=== PATIENT | male | born 1935 | race Caucasian/White ===

== ENCOUNTER → 2016-06-07 | Outpatient (CLI) | payer BC ==
[~2016-06-07] MED LIST: ASPEC81 PO; CMD5 PO; LISI5TAB3 PO; METO25TA3 PO; NTRGSL/4 UT; PRED1SUS3 OPR; ROSU40TA PO; WARF5TAB90 PO
== END | disposition home or self-care (01) ==
LOC: C.LAB1850 08:01
PROVIDERS: ATTEND Internal Medicine Cardiovascular Disease
DX: R52 Pain, unspecified (principal)

== ENCOUNTER → 2016-07-19 | Outpatient (CLI) | payer BC | END | disposition home or self-care (01) | LOC: C.LAB1850 10:59 | PROVIDERS: ATTEND Internal Medicine Cardiovascular Disease | DX: E03.9 Hypothyroidism, unspecified (principal) ==

== ENCOUNTER → 2016-10-19 | Outpatient (CLI) | payer BC ==
[2016-10-19 09:31] LABS: HEMATOCRIT 41.6 % (42-52); MEAN CELL VOLUME 92.7 fL (80-100); MEAN CORPUSCULAR HEMOGLOBIN 30.7 pg (25-34); MEAN CORPUSCULAR HGB CONC 33.2 g/dl (32-36); MEAN PLATELET VOLUME 10.6 fL (7.4-10.4); PLATELET COUNT 168 K/uL (130-400); RED BLOOD COUNT 4.49 M/uL (4.7-6.1); WHITE BLOOD COUNT 5.71 K/uL (4.8-10.8)
[2016-10-19 09:43] LABS: ALT/SGPT 35 U/L (12-78); BLOOD UREA NITROGEN 22 mg/dl (7-18); BUN/CREATININE RATIO 18.3 (10-20); CARBON DIOXIDE 25 mmol/L (21-32); CHLORIDE 110 mmol/L (98-107); CHOLESTEROL 133 mg/dl (0-200); GLUCOSE 94 mg/dl (70-99); POTASSIUM 4.5 mmol/L (3.5-5.1); SODIUM 146 mmol/L (136-145); TRIGLYCERIDES 78 mg/dl (0-150); VERY LOW DENSITY LIPOPROT CALC 16 mg/dl
[2016-10-19 09:54] LABS: ALKALINE PHOSPHATASE 73 U/L (45-117); AST/SGOT 28 U/L (15-37); CHOLESTEROL/HDL RATIO 2.6; HDL CHOLESTEROL 52 mg/dl; LDL CHOLESTEROL CALCULATED 65 mg/dl
== END | disposition home or self-care (01) ==
LOC: C.LAB1850 07:36
PROVIDERS: ATTEND Internal Medicine Cardiovascular Disease
DX: E78.5 Hyperlipidemia, unspecified (principal)

== ENCOUNTER → 2016-11-10 | Outpatient (CLI) | payer BC | END | disposition home or self-care (01) | LOC: C.LAB1850 07:50 | PROVIDERS: ATTEND Internal Medicine Cardiovascular Disease | DX: E03.9 Hypothyroidism, unspecified (principal) ==

== ENCOUNTER → 2016-12-01 | Outpatient (CLI) | payer BC | END | disposition home or self-care (01) | LOC: C.LAB1850 07:25 | PROVIDERS: ATTEND Internal Medicine Cardiovascular Disease | DX: E03.9 Hypothyroidism, unspecified (principal) ==

== ENCOUNTER → 2017-03-25 | Outpatient (CLI) | payer BC ==
[2017-03-25 09:36] LABS: HEMATOCRIT 37.7 % (42-52); MEAN CELL VOLUME 93.8 fL (80-100); MEAN CORPUSCULAR HEMOGLOBIN 31.3 pg (25-34); MEAN CORPUSCULAR HGB CONC 33.4 g/dl (32-36); MEAN PLATELET VOLUME 10.5 fL (7.4-10.4); PLATELET COUNT 159 K/uL (130-400); RED BLOOD COUNT 4.02 M/uL (4.7-6.1)
[2017-03-25 10:04] LABS: ALT/SGPT 39 U/L (12-78); BLOOD UREA NITROGEN 23 mg/dl (7-18); BUN/CREATININE RATIO 21.2 (10-20); CALCIUM 8.7 mg/dl (8.5-10.1); CARBON DIOXIDE 24 mmol/L (21-32); CHLORIDE 108 mmol/L (98-107); CREATININE 1.09 mg/dl (0.60-1.40); GLUCOSE 106 mg/dl (70-99); POTASSIUM 4.4 mmol/L (3.5-5.1); SODIUM 142 mmol/L (136-145)
[2017-03-25 10:14] LABS: ALB/GLOB RATIO 1.1 (0.9-2); ALKALINE PHOSPHATASE 75 U/L (45-117); AST/SGOT 28 U/L (15-37)
== END | disposition home or self-care (01) ==
LOC: C.LAB1850 08:38
PROVIDERS: ATTEND Internal Medicine Cardiovascular Disease
DX: E78.5 Hyperlipidemia, unspecified (principal)

== ENCOUNTER → 2017-06-14 | Outpatient (CLI) | payer BC ==
[2017-06-14 14:56] LABS: ALBUMIN 2.6 gm/dl (3.4-5.0); ALKALINE PHOSPHATASE 356 U/L (45-117); ALT/SGPT 87 U/L (12-78); AST/SGOT 47 U/L (15-37); BASO % 0.2 %; BASO ABS # 0.02 K/uL (0-0.2); BLOOD UREA NITROGEN 22 mg/dl (7-18); CALCIUM 8.6 mg/dl (8.5-10.1); CARBON DIOXIDE 26 mmol/L (21-32); CREATININE 1.11 mg/dl (0.60-1.40); EOS % 1.4 %; EOS ABS # 0.16 K/uL (0-0.5); GLUCOSE 87 mg/dl (70-99); HEMATOCRIT 29.8 % (42-52); HEMOGLOBIN 9.4 g/dL (14.0-18.0); IG# 0.19 K/uL (0.00-0.02); LYMPH % 19.3 %; LYMPH ABS # 2.22 K/uL (1.2-3.4); MEAN CELL VOLUME 94.6 fL (80-100); MEAN CORPUSCULAR HEMOGLOBIN 29.8 pg (25-34); MEAN CORPUSCULAR HGB CONC 31.5 g/dl (32-36); MEAN PLATELET VOLUME 9.1 fL (7.4-10.4); MONO % 8.8 %; MONO ABS # 1.01 K/uL (0.11-0.59); NEUT % 68.6 %; NEUT ABS # 7.91 K/uL (1.4-6.5); NUCLEATED RED BLOOD CELL ABS 0.04 K/uL (0-0); PLATELET COUNT 470 K/uL (130-400); POTASSIUM 4.5 mmol/L (3.5-5.1); RED CELL DISTRIBUTION WIDTH CV 18.2 % (11.5-14.5); RED CELL DISTRIBUTION WIDTH SD 58.6 fL (36.4-46.3); SODIUM 135 mmol/L (136-145); WHITE BLOOD COUNT 11.51 K/uL (4.8-10.8)
[2017-06-14 15:04] LABS: TOTAL PROTEIN 7.2 gm/dl (6.4-8.2); TRANSFERRIN 288 mg/dl (200-360)
== END | disposition home or self-care (01) ==
LOC: C.LAB1850 12:59
PROVIDERS: ATTEND Internal Medicine Cardiovascular Disease
DX: D64.9 Anemia, unspecified (principal); I25.10 Atherosclerotic heart disease of native coronary artery without angina pectoris; E03.9 Hypothyroidism, unspecified

== ENCOUNTER → 2017-06-29 | Outpatient (CLI) | payer BC ==
[~2017-06-29] MED LIST changes: +LEVO88TA PO
== END | disposition home or self-care (01) ==
LOC: C.LAB1850 13:01
PROVIDERS: ATTEND Internal Medicine Cardiovascular Disease
DX: E03.9 Hypothyroidism, unspecified (principal)

== ENCOUNTER → 2017-08-01 | Outpatient (CLI) | payer BC ==
[~2017-08-01] MED LIST changes: -CMD5 PO; -METO25TA3 PO; -PRED1SUS3 OPR
[2017-08-01 13:18] LABS: HEMOGLOBIN 9.2 g/dL (14.0-18.0); MEAN CELL VOLUME 81.3 fL (80-100); MEAN CORPUSCULAR HEMOGLOBIN 24.9 pg (25-34); MEAN CORPUSCULAR HGB CONC 30.7 g/dl (32-36); MEAN PLATELET VOLUME 9.4 fL (7.4-10.4); PLATELET COUNT 260 K/uL (130-400); RED CELL DISTRIBUTION WIDTH CV 16.4 % (11.5-14.5); WHITE BLOOD COUNT 6.37 K/uL (4.8-10.8)
[2017-08-01 13:54] LABS: ALBUMIN 3.3 gm/dl (3.4-5.0); ALT/SGPT 24 U/L (12-78); AST/SGOT 21 U/L (15-37); BLOOD UREA NITROGEN 22 mg/dl (7-18); CALCIUM 8.6 mg/dl (8.5-10.1); CARBON DIOXIDE 26 mmol/L (21-32); CREATININE 0.96 mg/dl (0.60-1.40); GLUCOSE 94 mg/dl (70-99); POTASSIUM 4.4 mmol/L (3.5-5.1); SODIUM 139 mmol/L (136-145)
[2017-08-01 13:58] LABS: ALKALINE PHOSPHATASE 130 U/L (45-117); TOTAL PROTEIN 7.4 gm/dl (6.4-8.2)
== END | disposition home or self-care (01) ==
LOC: C.LAB1850 11:42
PROVIDERS: ATTEND Internal Medicine Cardiovascular Disease
DX: I25.10 Atherosclerotic heart disease of native coronary artery without angina pectoris (principal); E78.5 Hyperlipidemia, unspecified; R79.89 Other specified abnormal findings of blood chemistry

== ENCOUNTER → 2017-08-31 | Outpatient (CLI) | payer BC ==
[2017-08-31 10:17] LABS: INR 2.1 (0.9-1.1)
== END | disposition home or self-care (01) ==
LOC: C.LAB1850 09:25
PROVIDERS: ATTEND Internal Medicine Cardiovascular Disease
DX: Z86.69 Personal history of other diseases of the nervous system and sense organs (principal)

== ENCOUNTER → 2017-09-28 | Outpatient (CLI) | payer BC ==
[2017-09-28 17:45] LABS: HEMATOCRIT 35.4 % (42-52); HEMOGLOBIN 11.1 g/dL (14.0-18.0); MEAN CELL VOLUME 82.3 fL (80-100); MEAN CORPUSCULAR HEMOGLOBIN 25.8 pg (25-34); MEAN CORPUSCULAR HGB CONC 31.4 g/dl (32-36); MEAN PLATELET VOLUME 9.7 fL (7.4-10.4); PLATELET COUNT 161 K/uL (130-400); RED CELL DISTRIBUTION WIDTH CV 20.9 % (11.5-14.5); RED CELL DISTRIBUTION WIDTH SD 62.9 fL (36.4-46.3); WHITE BLOOD COUNT 4.53 K/uL (4.8-10.8)
[2017-09-28 17:59] LABS: ALBUMIN 3.4 gm/dl (3.4-5.0); ALKALINE PHOSPHATASE 181 U/L (45-117); ALT/SGPT 35 U/L (12-78); AST/SGOT 31 U/L (15-37); BLOOD UREA NITROGEN 22 mg/dl (7-18); CALCIUM 8.5 mg/dl (8.5-10.1); CARBON DIOXIDE 23 mmol/L (21-32); CREATININE 1.13 mg/dl (0.60-1.40); GLUCOSE 97 mg/dl (70-99); POTASSIUM 4.5 mmol/L (3.5-5.1); SODIUM 141 mmol/L (136-145); TOTAL PROTEIN 7.1 gm/dl (6.4-8.2)
== END | disposition home or self-care (01) ==
LOC: C.LAB1850 15:50
PROVIDERS: ATTEND Internal Medicine Cardiovascular Disease
DX: D64.9 Anemia, unspecified (principal); R79.89 Other specified abnormal findings of blood chemistry

== ENCOUNTER 2018-06-02 06:51 | Observation (INO) ==
[2018-06-02] MEDS ORDERED: fentaNYL citrate 100 MCG/2 ML VIAL ONE (07:31)
[2018-06-02] MEDS ORDERED: MIDAZOLAM HCL 5 MG/ML 1 ML VIAL ONE (07:31)
[2018-06-02] MEDS ORDERED: BUPIVACAINE 0.25% 30 ML VIAL ONE (07:31)
[2018-06-02] MEDS ORDERED: LIDOCAINE HCL 1% 20 ML VIAL ONE (07:31)
[2018-06-02] MEDS ORDERED: BACITRACIN INJ 50,000 UNIT VIAL ONE (07:31)
--- NOTE | 2018-06-02 07:47 | History & Physical Bridge Note ---
Date of Service June 02, 2018 History & Physical Bridge Note I have examined the patient, reviewed the History & Physical and in the interval since the performance of the History & Physical I have noted the following changes of clinical significance: no changes noted
--- NOTE | 2018-06-02 07:48 | Pre Anesthesia Assessment ---
Date of Service June 02, 2018 Pre Sedation Assessment Vital Signs Temp Pulse Resp BP Pulse Ox 06/02/18 07:21 36.7 C 30 L 16 181/85 H 98 Cardiovascular + bradycardic Respiratory + respiratory effort normal Pre-Sedation Airway Assessment Smoking Status: Never smoker Hx Sleep Apnea: No Hx Difficult Intubation: No Short, Thick Neck: No Thyromental Distance: > or= 3.5 Finger Breadths Oral Cavity: + WNL Mallampati Class: III ASA: ASA3 NPO Status Date of Last Intake of Fluids: 06/01/18 Time of Last Intake of Fluids: 19:00 Date of Last Intake of Solid Food: 06/01/18 Time of Last Intake of Solid Foods: 19:00 Procedure Planning Contraindications for Sedation: none Current Medications Reviewed: Yes Notes The planned sedation has been discussed with the patient. Informed Consent was obtained. I have identified the patient, determined the appropriateness of sedation and have assessed the patient immediately prior to the procedure. All medicine(s) and interventions are by my order.
[2018-06-02] MEDS ORDERED: CEFAZOLIN 250 MG/ML 1 GM VIAL ONE (07:53)
[2018-06-02] MEDS ORDERED: OXYCODONE HCL IR 5 MG TAB (IMMEDIATE RELEASE) PO PRN (08:44)
--- NOTE | 2018-06-02 08:44 | Procedure Note ---
Procedure Note Date of Service June 02, 2018 Note Procedure performed: Implantation of single-chamber permanent pacemaker Staff gravity prospecting operator: Boubacar Hinkle MD Indication: The patient is an 82-year-old gentleman with a history of permanent atrial fibrillation and documented ventricular rates below 30 bpm. The patient also reports an element of exercise intolerance and dizziness. Based on this information is felt to be a good candidate for a permanent pacemaker due to symptomatic nonreversible AV node dysfunction. Procedure in detail: The patient was informed of the risks benefits and alternatives to the intended procedure and she wished to proceed. He was taken to the electrophysiology suite in a fasting state. A preoperative antibiotic had been administered. The patient was monitored electrocardiographically throughout today's procedure and conscious sedation was administered per protocol. The left upper pectoral area is prepped and draped in usual sterile fashion. This area was anesthetized using subcutaneous administration of a xylocaine solution. An incision was made at this site and carried down to the prepectoralis fascia using sharp dissection. Electrocautery was also employed for dissection as well as for hemostasis. A device pocket was fashioned tissues above the pectoralis muscle. Subsequent to this maneuver the left axillary vein was accessed using modified Seldinger technique. Sheath was placed over a guidewire and used to facilitate passage of the pacing lead to the right ventricle under fluoroscopic guidance. Adequate sensing and threshold parameters were obtained prior to Active fixation of the lead to the endocardial surface. The proximal portion of the lead then sutured the prepectoral fascia using nonabsorbable suture. The device pocket was irrigated with antibiotic solution. The lead was then attached to the device. The device and lead were then placed in the pocket and pocket was closed in 3 layers of absorbable suture. Steri-Strips and sterile dressing were applied. The device was tested noninvasively prior to conclusion the procedure. The patient tolerated procedure well there no immediate complications. Equipment used: New pulse generator: Paradi Tender [employer]. Model number: [id number] serial number [id number] Right ventricular lead: Paradi Tender [employer]. Model number: [id number] serial number [id number] Measured data: Right ventricular lead: R waves measured 11.6 mV. Pacing threshold 0.8 V at 0.4 ms with a pacing impedance of 741 ohms Impression: Successful implantation of single-chamber permanent pacemaker
[2018-06-02] MEDS: ASPIRIN 81 MG ECTAB PO SCH (10:14)
[2018-06-02] MEDS: ROSUVASTATIN CALCIUM 20 MG TAB PO SCH (10:14)
[2018-06-02] MEDS: LISINOPRIL 5 MG TAB PO SCH (10:15)
[2018-06-02] MEDS: LEVOTHYROXINE SODIUM 88 MCG TABLET PO SCH (12:26)
[2018-06-02 12:36] LABS: INR 1.7 (0.9-1.1); Prothrombin Time 16.8 Seconds (9.0-12.0)
[2018-06-02] MEDS: ACETAMINOPHEN 325 MG TAB PO PRN ×2 (13:49→20:58)
[2018-06-02] MEDS: CEFAZOLIN 1000MG 1,000 MG/7.5 ML SYR IV SCH ×2 (15:26→23:17)
[2018-06-02] MEDS ORDERED: WARFARIN SOD 2.5 MG TAB PO SCH (16:00)
[2018-06-03] MEDS: LEVOTHYROXINE SODIUM 88 MCG TABLET PO SCH (06:19)
[2018-06-03] MEDS: LISINOPRIL 5 MG TAB PO SCH (07:51)
[2018-06-03] MEDS: CEFAZOLIN 1000MG 1,000 MG/7.5 ML SYR IV SCH (07:51)
[2018-06-03] MEDS: ROSUVASTATIN CALCIUM 20 MG TAB PO SCH (07:51)
[2018-06-03] MEDS: ASPIRIN 81 MG ECTAB PO SCH (07:51)
[2018-06-03 08:13] LABS: INR 1.7 (0.9-1.1); Prothrombin Time 16.5 Seconds (9.0-12.0)
--- NOTE | 2018-06-03 08:32 | XRay Report ---
XR chest 2V routine HISTORY: 82 years-old Male EXACT TIME ORDERED Evaluate for pneumothorax and l status post placement of a left subclavian pacer. COMPARISON: Chest radiograph 05/26/2009 TECHNIQUE: PA and lateral views of the chest FINDINGS: Dual-lead left subclavian pacer is noted with lead overlying the expected location of the right ventr icle. Prior median sternotomy with cardiomegaly. No postprocedural pneumothorax identified. No pleura l effusion, focal airspace consolidation or overt pulmonary edema. Lungs are mildly hyperinflated. De generative changes of the shoulders and spine. IMPRESSION: Status post placement of a single lead left subclavian pacer. No postprocedural pneumotho rax. The above report was generated using voice recognition software. It may contain grammatical, syntax o r spelling errors. Electronically signed by: Emerson Loredo M.D. 06/03/2018 8:31 AM
--- NOTE | 2018-06-04 17:52 | Discharge Summary ---
Date of Service June 03, 2018 Admission HPI The patient is an 82-year-old gentleman with a history of permanent atrial fibrillation and symptomatic bradycardia. Based on the presence of symptoms an extremely low heart rates he was advised to consider implantation of a permanent pacemaker. Principal Diagnosis Principal Diagnosis Symptomatic bradycardia Discharge Exam An evaluation of the patient's wound on the day of discharge revealed some ecchymosis but no hematoma or drainage. Discharge Data Allergies Allergy/AdvReac Type Severity Reaction Status Date / Time No Known Allergies Allergy Mild NONE Verified 06/02/18 07:37 Procedures Performed Operation Date: 06/02/18 08:00 Actual Procedures p Pacer with Ventricular Lead - Indra Hinkle MD Ordered Studies 06/02/18 08:15 EP Lab Images for PACS ONCE Hospital Course (1) Symptomatic bradycardia: On the day of admission the patient underwent implantation of a single- chamber Med[employer]onic permanent pacemaker. There were no immediate complications. Following morning an x-ray demonstrated stable position of the lead without evidence of pneumothorax. A device interrogation revealed normal function of the lead and device. The wound evaluation revealed the absence of hematoma or complication. Total Time Total Time Spent Total Time Spent (In Minutes): 10 Discharge Plan Discharge Items Patient Disposition: Home - Self-Care Reason For Visit: [place] PACEMAKER Discharge Diagnosis: symptomatic bradycardia Discharge Goals: Therapeutic intervention Activity: Per 'Additional Instructions' section Activity Comment: No lifting left arm above shoulder or behind neck for 6 weeks Lifting: No more than 5 pounds Bathing: Keep incision dry Bathing Comment: Keep wound dry and steri-strip intact until f/u next week Exercise/Sports: Gradually increase as tolerated Driving/Machine Use: No limitations Non-emergency contact: [facility] Physicist Call non-emergency contact if: your pain is concerning for you, you have a fever , your wound has increased redness and your wound has increased drainage Follow-up/Referrals: Steven Danielson MD [Primary Care Provider] - Diet: Heart Healthy Addtl Provider Instructions: none Prescriptions: Continue Aspirin Enteric Coated (Ecotrin Or Generic *) 81 MG ENTERIC COATED TAB 81 mg PO QAM Qty: 0 RF: 0 Lisinopril (Zestril) 5 MG tablet 5 mg PO QAM Qty: 0 RF: 0 Nitroglycerin (Nitrostat) 0.4 MG tablet 0.4 mg UT PRN Qty: 0 RF: 0 ROSUVASTATIN CALCIUM (CRESTOR) 40 MG tablet 40 mg PO QAM Qty: 0 RF: 0 WARFARIN SODIUM (COUMADIN) 5 MG tablet See Label Instructions .ROUTE .COMPLEX Qty: 0 RF: 0 LEVOTHYROXINE SODIUM (SYNTHROID) 88 MCG tablet 1 tab PO DAILY 30 Days Qty: 30 RF: 5 Stand-Alone Forms: [facility]/Other Patient Handouts: Pacemaker Discharge Orders: Discharge Order (Routine); Ordered 06/03/18 Ordered By: Indra Hinkle Admission Data Admit Date/Time: 06/02/18 08:09 Attending Provider: Indra Hinkle Admit Provider: Indra Hinkle Primary Care Provider: Steven Danielson Service: Telemetry Other Interventions: Discharge Summary Assessment (RN) Last Done: 06/03/18 10:20 DC Date/Time DO NOT enter until pt leaves facility: 06/03/18 10:50
== END 2018-06-03 10:50 | disposition home or self-care (01) ==
LOC: EP 06:51 → 2S 08:09 → INTOOBSV 08:09

== ENCOUNTER 2020-11-29 07:28 | Inpatient (IN) ==
[2020-11-29] MEDS ORDERED: SODIUM CHLORIDE 0.9% 500 ML IV STA (07:54)
[2020-11-29] MEDS ORDERED: cefTRIAXone SODIUM 1,000 MG/50 ML BAG IV STA (07:54)
--- NOTE | 2020-11-29 08:11 | Emergency Department Note ---
Impression & Plan Sepsis, Cellulitis of leg, right, Abnormal EKG ED Provider Note NAME: SOPHIA HAY AGE: 85 SEX: M : 1935 ARRIVES VIA: Walk-In INFORMANT: Patient, ED PROVIDER(S): Frederick Callejas DO CHIEF COMPLAINT: Cellulitis HPI: The patient is an 85-year-old male who presented to the emergency department for an evaluation of right leg swelling and pain. The patient injured his right lower leg with a shovel 2 days ago. He does take Coumadin and noticed right away that he was having ecchymosis and some bleeding from the area. It was only a skin avulsion and was not very deep so initially the patient only cleaned out at home and covered it with Band-Aids. The patient started noticing over the last 24 hours that he was having more swelling ecchymosis and redness. He then started noting chills and subjective fever over the last 24 hours. He does have a history of irregular heartbeat and takes Coumadin. He has been taking Motrin for the fever and the pain. He denies having any chest pain. He denies having any nausea or vomiting. He denies having any abdominal pain. He does note swelling in the right ankle more than the left. The patient has not been seen by his provider for the symptoms. He presented to the emergency department because of concerns for infection. The patient states the pain does worsen when he tries to ambulate. It is somewhat improved with keeping the leg elevated. ROS: See above HPI for pertinent positives & negatives. A total of 10 systems reviewed and were otherwise negative. PAST MEDICAL HISTORY: See Below PAST SURGICAL HISTORY: See Below FAMILY HISTORY: See Below SOCIAL HISTORY: See Below HOME MEDICATIONS: See Below ALLERGIES: See Below VITALS: See Below PHYSICAL EXAMINATION: GENERAL: The patient is awake and alert. He is nonanxious appearing. EYES: The conjunctivae are clear. The pupils are round and reactive. EARS, NOSE, MOUTH AND THROAT: The nose is without any evidence of any deformity. NECK: The neck is nontender and supple. RESPIRATORY: Diminished breath sounds are noted at both bases. There is no tachypnea or conversational dyspnea. CARDIOVASCULAR: Regular rate and rhythm noted there no murmurs rubs or gallops normal S1 normal S2. GASTROINTESTINAL: The abdomen is soft. Abdomen is nontender. PELVIS: The Pelvis is stable. No tenderness to palpation is noted. BACK: No midline tenderness or or step-off noted range of motion in flexion extension as well as rotation no signs of muscle spasm noted MUSCULOSKELETAL/EXTREMITIES: There is no evidence of gross deformity full range of motion is noted in the hips and shoulders. SKIN: There is a small laceration in the posterior right leg. There is no active bleeding. There is significant ecchymosis and erythema in the posterior right leg. Pulses are symmetric in both feet. NEUROLOGIC: Patient is awake alert and oriented x3. MEDICAL DECISION MAKING: The patient is an 85-year-old male who presented to the emergency department for an evaluation of right leg pain. The patient had a slight injury to his right leg 2 days ago. He started noticing worsening pain and swelling over the last 24 hours. The patient did describe subjective fever and was diaphoretic. He was bradycardic and had a very abnormal EKG. I was unsure if the patient's initial hypotension was secondary to sepsis or secondary to cardiac source. The patient had multiple laboratory and radiographic studies in the emergency department. He did respond well to IV fluids and IV antibiotics but did require a central line for IV pressors. I discussed the patient's laboratory and radiographic studies with him. CT the head was obtained because I was unsure if the patient's EKG changes were secondary to cerebral T wave abnormalities. CT of the chest was obtained to ensure this was not venous pulmonary thromboembolic disease. CT the abdomen and pelvis showed an enlarged gallbladder but the patient at this time only has an elevated bilirubin and no signs of chol ecystitis on physical exam or by other laboratory studies. CT of the leg did show signs of cellulitis but no signs of gas-forming organisms such as necrotizing fasciitis. I discussed the patient's condition with him. He was feeling much better. The [facility] hospitalist was notified about the patient. Care was taken not to over fluid resuscitate the patient due to his underlying cardiac condition. Triage Nursing notes reviewed. Prior medical records reviewed Vital Signs: reviewed and remarkable for hypotension and bradycardia. Differential diagnosis: Cellulitis, abscess, MRSA infection, DVT, necrotizing fasciitis, dermatitis, drug eruption, allergic reaction, as well as other pathologies. ER treatment provided: See below Diagnostics in ED interpreted by me: ECG: EKG was obtained in the emergency department. My interpretation is atrial fibrillation at 54 bpm. There was no PVCs noted. Significant inferior and low lateral ST depressions with T wave versions were noted. This was compared to a tracing from May [id number]. Significant changes have occurred since previous tracing. Cardiac Monitoring: An order was placed for continuous cardiac monitoring. The monitor shows a rate of 50 bpm with atrial fibrillation rhythm. Laboratory studies: As stated above and show below. Imaging studies: See below Consultation(s): Dr. Conte was notified about the patient in the emergency department. ED COURSE: Procedures: Femoral Central Venous Catheter Indication: Sepsis Catheter Type: Triple-lumen Location: Left femoral vein Verbal consent was obtained after the risks and benefits were explained, including but not limited to intra-abdominal injury, vessel injury, bleeding, scarring, infection, pain, and bone/joint/nerve damage. At this time, the risks of the procedure are less than the risks of NOT performing the procedure. A time out was taken and the correct patient and site identified. The patient was placed in the supine position and the skin was prepped in the standard fashion with chlorhexidine and full sterile drapes applied. The proper landmarks were identified with ultrasound, anesthetized with 1% lidocaine without epinephrine, and the needle was inserted through the skin in the standard fashion. The needle was carefully advanced into blood vessel lumen with ultrasound guidance. The guidewire was placed uneventfully. The vessel is dilated and the catheter was p laced. It was sutured into position. There was good blood return from all ports. The patient tolerated the procedure well and there were no complications. PDMP:reviewed and no issues Critical Care: I have personally spent greater than 45 minutes of critical care time in the direct management of this patient. This includes bedside care, interpretation of diagnostic studies, and testing, discussion with consultants, patient, and family members, and other required patient management activities. This 45 minutes is in excess of all separately billable procedures. Past Med/Surg History Medical History Aneurysm of infrarenal abdominal aorta Aortic regurgitation Atrial fibrillation Bradycardia Coronary artery disease PCI to RCA with stent in 2009 Dyslipidemia H/O amaurosis fugax Hypertension Hypothyroidism (acquired) Mitral regurgitation Pacemaker Implantation of single-chamber Medtronic pacemaker 06/02/2018 Symptomatic bradycardia Thoracic aortic dissection Repair May 2017 Surgical History History of cataract surgery History of inguinal hernia repair, bilateral S/P thoracic aortic aneurysm repair Status post coronary artery stent placement right proximal Status post Mohs surgery face Family History Mother Coronary heart disease Social History Smoking Status: Never smoker Hx Alcohol Use: Yes Alcohol type: wine Hx Substance Use: No Preferred Language: Ukrainian Communication Ability: Effective Automatic Lathe Operator Required: No Beliefs That Will Affect Care: None Current Living Situation: Spouse Other Information That Helps Us Care for You: No Feels Safe at Home: Yes Safety Concerns: Feels Safe At This Time Assistive Devices: Cane, Glasses and Hearing Aid - Right Allergies Allergies Allergy/AdvReac Type Severity Reaction Status Date / Time No Known Allergies Allergy Mild NONE Verified 07/18/20 11:10 Home Meds Home Medications Medication Instructions Recorded Confirmed aspirin 81 mg tablet 81 mg PO DAILY #90 tab 12/12/18 11/29/20 nitroglycerin 0.4 mg sublingual 0.4 mg SL Q5M PRN #25 tab 12/12/18 11/29/20 tablet Previous Rx's Medication Instructions Recorded levothyroxine 88 mcg tablet 88 mcg PO DAILY #90 tab 02/05/20 rosuvastatin 40 mg tablet 40 mg PO DAILY #90 tab 03/19/20 warfarin 5 mg tablet 5 mg PO DAILY #90 tab 05/14/20 lisinopril 5 mg tablet 5 mg PO DAILY #90 tab 06/12/20 diclofenac sodium 50 mg 50 mg PO DAILY #90 tab 11/25/20 tablet,delayed release Results & Data (ED) Vital Signs Vital Signs - 24 hr 11/29/20 07:34 11/29/20 08:40 11/29/20 08:50 Temperature 36.6 C Temperature Source Temporal Artery Scan Pulse Rate 97 H 54 L 57 L Pulse Rate [Apical] Pulse Rate from SpO2 Sensor Pulse Rhythm [Apical] Respiratory Rate 18 22 18 Respiratory Effort / Characteristics Non-Labored Respiratory Depth Normal Respiratory Pattern Regular Blood Pressure 86/57 L Blood Pressure [Right Arm] Blood Pressure Mean 66 Blood Pressure Mean [Right Arm] Blood Pressure Position Sitting Blood Pressure Position [Right Arm] Pulse Oximetry 99 Oxygen Delivery Method Room Air Sepsis Recent Fever Within 48 Hours Yes Sepsis New/Unexplained Change in Mental Status No Sepsis Action Taken by Nursing No Action Required 11/29/20 09:00 11/29/20 09:10 11/29/20 09:30 Temperature 37 C Temperature Source Oral Pulse Rate 54 L 54 L Pulse Rate [Apical] 56 L Pulse Rate from SpO2 Sensor Pulse Rhythm [Apical] Respiratory Rate 20 16 16 Respiratory Effort / Characteristics Non-Labored Respiratory Depth Normal Respiratory Pattern Blood Pressure 81/48 L Blood Pressure [Right Arm] 81/50 L Blood Pressure Mean 59 Blood Pressure Mean [Right Arm] 60 Blood Pressure Position Blood Pressure Position [Right Arm] Pulse Oximetry 96 Oxygen Delivery Method Room Air Sepsis Recent Fever Within 48 Hours Sepsis New/Unexplained Change in Mental Status Sepsis Action Taken by Nursing 11/29/20 10:01 11/29/20 10:13 11/29/20 10:15 Temperature Temperature Source Pulse Rate 52 L 62 Pulse Rate [Apical] 50 L Pulse Rate from SpO2 Sensor Pulse Rhythm [Apical] Respiratory Rate 22 16 22 Respiratory Effort / Characteristics Respiratory Depth Respiratory Pattern Blood Pressure 70/42 L 69/42 L Blood Pressure [Right Arm] 69/44 L Blood Pressure Mean 51 51 Blood Pressure Mean [Right Arm] 52 Blood Pressure Position Blood Pressure Position [Right Arm] Pulse Oximetry 97 Oxygen Delivery Method Sepsis Recent Fever Within 48 Hours Sepsis New/Unexplained Change in Mental Status Sepsis Action Taken by Nursing 11/29/20 10:30 11/29/20 10:34 11/29/20 10:46 Temperature Temperature Source Pulse Rate 55 L 52 L Pulse Rate [Apical] 51 L Pulse Rate from SpO2 Sensor 56 L 52 L Pulse Rhythm [Apical] Respiratory Rate 21 16 19 Respiratory Effort / Characteristics Respiratory Depth Respiratory Pattern Blood Pressure 89/55 L Blood Pressure [Right Arm] 89/55 L Blood Pressure Mean 66 Blood Pressure Mean [Right Arm] 66 Blood Pressure Position Blood Pressure Position [Right Arm] Pulse Oximetry 100 100 99 Oxygen Delivery Method Room Air Sepsis Recent Fever Within 48 Hours Sepsis New/Unexplained Change in Mental Status Sepsis Action Taken by Nursing 11/29/20 10:50 11/29/20 11:00 11/29/20 11:07 Temperature Temperature Source Pulse Rate 54 L 50 L Pulse Rate [Apical] 50 L Pulse Rate from SpO2 Sensor 54 L Pulse Rhythm [Apical] Respiratory Rate 23 18 16 Respiratory Effort / Characteristics Respiratory Depth Respiratory Pattern Blood Pressure Blood Pressure [Right Arm] 74/45 L Blood Pressure Mean Blood Pressure Mean [Right Arm] 54 Blood Pressure Position Blood Pressure Position [Right Arm] Pulse Oximetry 100 96 Oxygen Delivery Method Room Air Sepsis Recent Fever Within 48 Hours Sepsis New/Unexplained Change in Mental Status Sepsis Action Taken by Nursing 11/29/20 11:17 11/29/20 11:21 11/29/20 11:54 Temperature Temperature Source Pulse Rate 52 L 50 L 50 L Pulse Rate [Apical] Pulse Rate from SpO2 Sensor 50 L Pulse Rhythm [Apical] Respiratory Rate 18 20 17 Respiratory Effort / Characteristics Respiratory Depth Respiratory Pattern Blood Pressure 78/50 L 88/52 L 90/69 L Blood Pressure [Right Arm] Blood Pressure Mean 59 64 76 Blood Pressure Mean [Right Arm] Blood Pressure Position Blood Pressure Position [Right Arm] Pulse Oximetry 98 Oxygen Delivery Method Sepsis Recent Fever Within 48 Hours Sepsis New/Unexplained Change in Mental Status Sepsis Action Taken by Nursing 11/29/20 11:57 11/29/20 12:00 11/29/20 12:15 Temperature Temperature Source Pulse Rate 46 L 50 L Pulse Rate [Apical] 51 L Pulse Rate from SpO2 Sensor 50 L 50 L Pulse Rhythm [Apical] Regular Respiratory Rate 13 18 18 Respiratory Effort / Characteristics Non-Labored Spontaneous Respiratory Depth Normal Respiratory Pattern Blood Pressure 101/57 L 90/55 L Blood Pressure [Right Arm] 90/69 L Blood Pressure Mean 71 66 Blood Pressure Mean [Right Arm] 76 Blood Pressure Position Blood Pressure Position [Right Arm] Pulse Oximetry 99 98 98 Oxygen Delivery Method Room Air Sepsis Recent Fever Within 48 Hours Sepsis New/Unexplained Change in Mental Status Sepsis Action Taken by Nursing 11/29/20 12:18 11/29/20 12:30 11/29/20 12:31 Temperature Temperature Source Pulse Rate 50 L Pulse Rate [Apical] 50 L 51 L Pulse Rate from SpO2 Sensor 50 L Pulse Rhythm [Apical] Respiratory Rate 19 20 19 Respiratory Effort / Characteristics Non-Labored Non-Labored Respiratory Depth Normal Normal Respiratory Pattern Blood Pressure 92/52 L Blood Pressure [Right Arm] 90/55 L 92/52 L Blood Pressure Mean 65 Blood Pressure Mean [Right Arm] 66 65 Blood Pressure Position Blood Pressure Position [Right Arm] Lying Lying Pulse Oximetry 98 97 97 Oxygen Delivery Method Room Air Room Air Sepsis Recent Fever Within 48 Hours Sepsis New/Unexplained Change in Mental Status Sepsis Action Taken by Nursing 11/29/20 12:48 11/29/20 13:00 11/29/20 13:09 Temperature Temperature Source Pulse Rate 50 L 50 L Pulse Rate [Apical] 50 L Pulse Rate from SpO2 Sensor 50 L 50 L Pulse Rhythm [Apical] Respiratory Rate 20 19 16 Respiratory Effort / Characteristics Non-Labored Respiratory Depth Normal Respiratory Pattern Blood Pressure 84/55 L 103/52 L Blood Pressure [Right Arm] 103/52 L Blood Pressure Mean 64 69 Blood Pressure Mean [Right Arm] 69 Blood Pressure Position Blood Pressure Position [Right Arm] Lying Pulse Oximetry 99 98 99 Oxygen Delivery Method Room Air Sepsis Recent Fever Within 48 Hours Sepsis New/Unexplained Change in Mental Status Sepsis Action Taken by Nursing 11/29/20 13:15 11/29/20 13:20 11/29/20 13:30 Temperature 37.2 C Temperature Source Oral Pulse Rate 50 L 50 L Pulse Rate [Apical] Pulse Rate from SpO2 Sensor 50 L 50 L Pulse Rhythm [Apical] Respiratory Rate 23 18 Respiratory Effort / Characteristics Respiratory Depth Respiratory Pattern Blood Pressure 88/54 L 108/57 L Blood Pressure [Right Arm] Blood Pressure Mean 65 74 Blood Pressure Mean [Right Arm] Blood Pressure Position Blood Pressure Position [Right Arm] Pulse Oximetry 99 98 Oxygen Delivery Method Sepsis Recent Fever Within 48 Hours Sepsis New/Unexplained Change in Mental Status Sepsis Action Taken by Nursing 11/29/20 13:33 11/29/20 13:43 11/29/20 13:45 Temperature Temperature Source Pulse Rate 50 L Pulse Rate [Apical] 50 L 50 L Pulse Rate from SpO2 Sensor 50 L Pulse Rhythm [Apical] Respiratory Rate 18 17 20 Respiratory Effort / Characteristics Non-Labored Non-Labored Respiratory Depth Normal Normal Respiratory Pattern Blood Pressure 106/54 L Blood Pressure [Right Arm] 108/57 L 108/57 L Blood Pressure Mean 71 Blood Pressure Mean [Right Arm] 74 74 Blood Pressure Position Blood Pressure Position [Right Arm] Lying Sitting Pulse Oximetry 98 98 99 Oxygen Delivery Method Room Air Room Air Sepsis Recent Fever Within 48 Hours Sepsis New/Unexplained Change in Mental Status Sepsis Action Taken by Nursing 11/29/20 14:00 11/29/20 14:15 11/29/20 14:19 Temperature Temperature Source Pulse Rate 50 L 54 L Pulse Rate [Apical] 51 L Pulse Rate from SpO2 Sensor 51 L 54 L Pulse Rhythm [Apical] Respiratory Rate 18 12 22 Respiratory Effort / Characteristics Non-Labored Respiratory Depth Shallow Respiratory Pattern Blood Pressure 99/56 L 110/60 Blood Pressure [Right Arm] 110/60 Blood Pressure Mean 70 76 Blood Pressure Mean [Right Arm] 76 Blood Pressure Position Blood Pressure Position [Right Arm] Lying Pulse Oximetry 96 99 98 Oxygen Delivery Method Room Air Sepsis Recent Fever Within 48 Hours Sepsis New/Unexplained Change in Mental Status Sepsis Action Taken by Nursing 11/29/20 14:30 11/29/20 14:45 Temperature Temperature Source Pulse Rate 50 L 52 L Pulse Rate [Apical] Pulse Rate from SpO2 Sensor 50 L 53 L Pulse Rhythm [Apical] Respiratory Rate 20 23 Respiratory Effort / Characteristics Respiratory Depth Respiratory Pattern Blood Pressure 108/55 L 109/59 L Blood Pressure [Right Arm] Blood Pressure Mean 72 75 Blood Pressure Mean [Right Arm] Blood Pressure Position Blood Pressure Position [Right Arm] Pulse Oximetry 96 97 Oxygen Delivery Method Sepsis Recent Fever Within 48 Hours Sepsis New/Unexplained Change in Mental Status Sepsis Action Taken by Prison Medications Current Medication List: was personally reviewed by me Laboratory Data Attestation: I reviewed the patient's lab results. Result diagrams: 11/29/20 08:23 11/29/20 08:23 Lab Results 11/29/20 11/29/20 11/29/20 Range/Units 08:23 08:23 08:23 WBC 12.57 H (4.8-10.8) K/uL RBC 4.74 (4.7-6.1) M/uL Hgb 15.0 (14.0-18.0) g/dL Hct 45.1 (42-52) % MCV 95.1 (80-100) fL MCH 31.6 (25-34) pg MCHC 33.3 (32-36) g/dL RDW Std Deviation 50.9 H (36.4-46.3) fL RDW Coeff of Jeannie 14.5 (11.5-14.5) % Plt Count 189 (130-400) K/uL MPV 9.8 (7.4-10.4) fL Immature Gran % (Auto) 0.5 % Neut % (Auto) 87.2 % Lymph % (Auto) 8.4 % Meade % (Auto) 3.8 % Eos % (Auto) 0.1 % Baso % (Auto) 0.0 % Neut # (Auto) 10.96 H (1.4-6.5) K/uL Lymph # (Auto) 1.06 L (1.2-3.4) K/uL Meade # (Auto) 0.48 (0.11-0.59) K/uL Eos # (Auto) 0.01 (0-0.5) K/uL Baso # (Auto) 0.00 (0-0.2) K/uL Immature Gran # (Auto) 0.06 H (0.00-0.02) K/uL ESR 4 (0-20) mm/hr PT 37.0 H (9.0-12.0) Seconds INR 4.1 H (0.9-1.1) APTT 27.9 (21.0-31.0) Seconds PTT Ratio 1.1 Sodium (136-145) mmol/L Potassium (3.5-5.1) mmol/L Chloride (98-107) mmol/L Carbon Dioxide (21-32) mmol/L Anion Gap (3-11) BUN (7-18) mg/dl Creatinine (0.6-1.4) mg/dl Est Cr Clr Drug Dosing ml/min Est GFR ( Amer) ml/min Est GFR (Non-Af Amer) ml/min BUN/Creatinine Ratio (10-20) Glucose (70-99) mg/dl Lactate (0.4-2.0) mmol/L Calcium (8.5-10.1) mg/dl Total Bilirubin (0.2-1) mg/dl AST (15-37) U/L ALT (12-78) U/L Alkaline Phosphatase (45-117) U/L Troponin I (0-0.045) ng/ml Total Protein (6.4-8.2) gm/dl Albumin (3.4-5.0) gm/dl Globulin (2.5-4.0) gm/dl Albumin/Globulin Ratio (0.9-2) Procalcitonin (0-0.5) ng/ml COVID-19 Eval Order SARS-CoV-2 (PCR) (Negative) 11/29/20 11/29/20 11/29/20 Range/Units 08:23 08:23 09:43 WBC (4.8-10.8) K/uL RBC (4.7-6.1) M/uL Hgb (14.0-18.0) g/dL Hct (42-52) % MCV (80-100) fL MCH (25-34) pg MCHC (32-36) g/dL RDW Std Deviation (36.4-46.3) fL RDW Coeff of Jeannie (11.5-14.5) % Plt Count (130-400) K/uL MPV (7.4-10.4) fL Immature Gran % (Auto) % Neut % (Auto) % Lymph % (Auto) % Meade % (Auto) % Eos % (Auto) % Baso % (Auto) % Neut # (Auto) (1.4-6.5) K/uL Lymph # (Auto) (1.2-3.4) K/uL Meade # (Auto) (0.11-0.59) K/uL Eos # (Auto) (0-0.5) K/uL Baso # (Auto) (0-0.2) K/uL Immature Gran # (Auto) (0.00-0.02) K/uL ESR (0-20) mm/hr PT (9.0-12.0) Seconds INR (0.9-1.1) APTT (21.0-31.0) Seconds PTT Ratio Sodium 140 (136-145) mmol/L Potassium 3.6 (3.5-5.1) mmol/L Chloride 108 H (98-107) mmol/L Carbon Dioxide 26 (21-32) mmol/L Anion Gap 6.0 (3-11) BUN 28 H (7-18) mg/dl Creatinine 1.01 (0.6-1.4) mg/dl Est Cr Clr Drug Dosing 58.7 ml/min Est GFR ( Amer) 78.2 ml/min Est GFR (Non-Af Amer) 67.5 ml/min BUN/Creatinine Ratio 27.9 H (10-20) Glucose 117 H (70-99) mg/dl Lactate (0.4-2.0) mmol/L Calcium 9.5 (8.5-10.1) mg/dl Total Bilirubin 2.3 H (0.2-1) mg/dl AST 30 (15-37) U/L ALT 50 (12-78) U/L Alkaline Phosphatase 65 (45-117) U/L Troponin I 0.016 (0-0.045) ng/ml Total Protein 7.3 (6.4-8.2) gm/dl Albumin 3.9 (3.4-5.0) gm/dl Globulin 3.4 (2.5-4.0) gm/dl Albumin/Globulin Ratio 1.2 (0.9-2) Procalcitonin 4.64 H (0-0.5) ng/ml COVID-19 Eval Order Covid19 at [facility] SARS-CoV-2 (PCR) (Negative) 11/29/20 11/29/20 11/29/20 Range/Units 09:43 10:55 12:48 WBC (4.8-10.8) K/uL RBC (4.7-6.1) M/uL Hgb (14.0-18.0) g/dL Hct (42-52) % MCV (80-100) fL MCH (25-34) pg MCHC (32-36) g/dL RDW Std Deviation (36.4-46.3) fL RDW Coeff of Jeannie (11.5-14.5) % Plt Count (130-400) K/uL MPV (7.4-10.4) fL Immature Gran % (Auto) % Neut % (Auto) % Lymph % (Auto) % Meade % (Auto) % Eos % (Auto) % Baso % (Auto) % Neut # (Auto) (1.4-6.5) K/uL Lymph # (Auto) (1.2-3.4) K/uL Meade # (Auto) (0.11-0.59) K/uL Eos # (Auto) (0-0.5) K/uL Baso # (Auto) (0-0.2) K/uL Immature Gran # (Auto) (0.00-0.02) K/uL ESR (0-20) mm/hr PT (9.0-12.0) Seconds INR (0.9-1.1) APTT (21.0-31.0) Seconds PTT Ratio Sodium (136-145) mmol/L Potassium (3.5-5.1) mmol/L Chloride (98-107) mmol/L Carbon Dioxide (21-32) mmol/L Anion Gap (3-11) BUN (7-18) mg/dl Creatinine (0.6-1.4) mg/dl Est Cr Clr Drug Dosing ml/min Est GFR ( Amer) ml/min Est GFR (Non-Af Amer) ml/min BUN/Creatinine Ratio (10-20) Glucose (70-99) mg/dl Lactate 2.4 H* 2.3 H* (0.4-2.0) mmol/L Calcium (8.5-10.1) mg/dl Total Bilirubin (0.2-1) mg/dl AST (15-37) U/L ALT (12-78) U/L Alkaline Phosphatase (45-117) U/L Troponin I (0-0.045) ng/ml Total Protein (6.4-8.2) gm/dl Albumin (3.4-5.0) gm/dl Globulin (2.5-4.0) gm/dl Albumin/Globulin Ratio (0.9-2) Procalcitonin (0-0.5) ng/ml COVID-19 Eval Order SARS-CoV-2 (PCR) NEGATIVE (Negative) Administered Medications Norepinephrine Bitartrate (Levophed/D5w) 8 mg in 508 mls @ 15.545 mls/hr IV .Q24H CHELSI; Protocol Stop: 12/29/20 11:14 Last Admin: 11/29/20 11:15 Dose: 0.05 mcg/kg/min, 15.5 mls/hr Documented by: [id number] Cosigned by: [id number] Potassium Chloride/Sodium Chloride (Normal Saline W/20 Meq Kcl) 20 meq in 1,000 mls @ 100 mls/hr IV .Q10H CHELSI Stop: 11/30/20 02:29 Last Admin: 11/29/20 17:02 Dose: 100 mls/hr Documented by: [id number] Discontinued Medications Acetaminophen (Acetaminophen 500 Mg Tab) 1,000 mg PO NOW STA Stop: 11/29/20 09:07 Last Admin: 11/29/20 09:14 Dose: 1,000 mg Documented by: [id number] Sodium Chloride (Nss) 500 mls @ 999 mls/hr IV .Q31M STA Stop: 11/29/20 08:24 Last Infusion: 11/29/20 09:41 Dose: 0 mls/hr Documented by: [id number] Admin: 11/29/20 09:02 Dose: 999 mls/hr Documented by: [id number] Ceftriaxone Sodium (Rocephin) 1,000 mg in 50 mls @ 100 mls/hr IV NOW STA Stop: 11/29/20 08:23 Last Infusion: 11/29/20 09:31 Dose: 0 mls/hr Documented by: [id number] Admin: 11/29/20 09:01 Dose: 100 mls/hr Documented by: [id number] Sodium Chloride (Nss) 500 mls @ 999 mls/hr IV .Q31M ONE Stop: 11/29/20 09:54 Last Infusion: 11/29/20 10:16 Dose: 0 mls/hr Documented by: [id number] Admin: 11/29/20 09:42 Dose: 999 mls/hr Documented by: [id number] Vancomycin HCl 1,750 mg/ (Sodium Chloride) 535 mls @ 200 mls/hr IV NOW ONE Stop: 11/29/20 12:04 Last Infusion: 11/29/20 13:18 Dose: 0 mls/hr Documented by: [id number] Admin: 11/29/20 09:41 Dose: 200 mls/hr Documented by: [id number] Sodium Chloride (Nss 1000ml) 500 mls @ 999 mls/hr IV .Q31M ONE Stop: 11/29/20 11:08 Last Infusion: 11/29/20 13:17 Dose: 0 mls/hr Documented by: [id number] Admin: 11/29/20 11:06 Dose: 999 mls/hr Documented by: [id number] Piperacillin Sod/Tazobactam (Sod 3.375 gm/ Dextrose) 115 mls @ 230 mls/hr IV NOW ONE; Protocol Stop: 11/29/20 16:44 Last Admin: 11/29/20 17:02 Dose: 230 mls/hr Documented by: [id number] Ioversol (Optiray 320 125ml) 119 ml IV ONCE ONE Stop: 11/29/20 11:45 Last Admin: 11/29/20 11:44 Dose: 1 ml Documented by: [id number] Ketorolac Tromethamine (Ketorolac Tromethamine 15 Mg/Ml Vial) 10 mg IV NOW ONE Stop: 11/29/20 13:13 Last Admin: 11/29/20 13:17 Dose: 10 mg Documented by: [id number] Miscellaneous (Stat Iv Infusion Titration Per Protocol) 1 ea N/A NOW STA Stop: 11/29/20 11:05 Last Admin: 11/29/20 13:17 Dose: 1 ea Documented by: [id number] Imaging Data Radiologist's Impression: Chest X-Ray 11/29/20 07:54 XR chest 1V portable CLINICAL HISTORY: Fever COMPARISON STUDY: Chest CT July 11, 2019. FINDINGS: Lung volumes are normal. There is no pneumothorax or pleural effusion. Moderate to marked cardiomegaly is unchanged. A left pacer is in place. There are median sternotomy wires. IMPRESSION: No acute cardiopulmonary findings. Moderate to marked cardiomegaly. ACT 112: Negative or not required by law. Electronically signed by: Luis Ibarra M.D. 11/29/2020 8:13 AM Tibia/Fibula X-Ray 11/29/20 07:54 XR tibia fibula RT 2V CLINICAL HISTORY: Injury and swelling. COMPARISON: None FINDINGS: A calcification projecting over the distal patellar tendon is chronic. No acute fracture within the right tibia or fibula is identified. Soft tissue swelling is greatest within the lower leg and ankle. There is severe medial and patellofemoral compartment osteoarthritis of the right knee. IMPRESSION: 1. No acute fracture within the right tibia or fibula. 2. Severe osteoarthritis within the medial and patellofemoral compartments of the right knee. ACT 112: Negative or not required by law. Electronically signed by: Luis Ibarra M.D. 11/29/2020 8:15 AM Abdomen/Pelvis CT 11/29/20 10:38 CT OF THE ABDOMEN AND PELVIS WITH CONTRAST CLINICAL HISTORY: Sepsis. COMPARISON STUDY: CTA of the abdomen and pelvis July 11, 2019. TECHNIQUE: Following IV administration of 120 mL of Optiray, axial images of the abdomen and pelvis were obtained from the lung bases to the proximal femurs. Images were reviewed in the axial, sagittal, and coronal planes. IV contrast was administered without complication. Automated exposure control was utilized for the study. A dose lowering technique was utilized adhering to the principles of ALARA. FINDINGS: A 3 mm right lower lobe nodule is unchanged since CT of July 11, 2019. This is likely benign. The chest will be reported separately. Marked cardiomegaly is noted. There is no pneumatosis, free air or portal venous gas. 3.4 cm infrarenal abdominal aortic aneurysm is similar to prior exam. There is no evidence for rupture. There are gallstones within the gallbladder. There is mild gallbladder wall thickening. This is a nonspecific finding. There is periportal edema. Mild dilatation of the hepatic veins and the IVC. The spleen, adrenal glands and pancreas are unremarkable. There is no biliary or pancreatic ductal dilatation. There is a cyst within the upper pole of the right kidney. Colonic diverticulosis is noted without evidence for acute diverticulitis. A left femoral central line is in place. There is right groin infiltration. Prostate is surgically absent. There is no lymphadenopathy. IMPRESSION: 1. Cholelithiasis with mild gallbladder distention and mild gallbladder wall thickening, a nonspecific finding, particularly given evidence for right heart dysfunction. However, if right upper quadrant pain, ultrasound is recommended as acute cholecystitis would be difficult to completely exclude. 2. Mild right groin infiltration, partially imaged. No fluid collection. This may be posttraumatic or infectious. 3. No change in a 3.4 cm infrarenal abdominal aortic aneurysm. ACT 112: Negative or not required by law. Electronically signed by: Luis Ibarra M.D. 11/29/2020 12:11 PM Chest CTA 11/29/20 10:38 CT ANGIOGRAPHY OF THE CHEST, PULMONARY EMBOLUS PROTOCOL CLINICAL HISTORY: Sepsis. COMPARISON STUDY: Chest CT July 11, 2019. Chest radiograph performed earlier today. TECHNIQUE: Following IV administration of 120 mL of Optiray, helical axial images of the chest were obtained utilizing the pulmonary embolus protocol. Maximal intensity projections and sagittal and coronal reformats were viewed on an independent 3D workstation. IV contrast was administered without complication. Automated exposure control was utilized for the study. A dose lowering technique was utilized adhering to the principles of ALARA. CT DOSE: 1592.59 mGy.cm FINDINGS: No pulmonary emboli are identified although the segmental and subsegmental pulmonary arteries are suboptimally assessed due to respiratory motion. Mediastinal wires are noted. There are postoperative findings of the thoracic aorta. The thoracic aorta is suboptimally assessed given minimal opacification. Grossly, this appears unchanged since CT of July 11, 2019. Marked cardiomegaly is again noted. There is no pneumothorax. No pleural effusion is noted. Groundglass opacities favor atelectasis. There is no consolidation. Abdomen and pelvis will be reported separately. IMPRESSION: 1. No pulmonary emboli identified although segmental and subsegmental pulmonary arteries suboptimally assessed due to respiratory motion. 2. Marked cardiomegaly. 3. Postoperative findings of the thoracic aorta, suboptimally assessed on this exam. 4. No consolidation to suggest pneumonia. ACT 112: Negative or not required by law. Electronically signed by: Luis Ibarra M.D. 11/29/2020 12:[address] 11/29/20 10:38 CT tib/fib RT w con CLINICAL HISTORY: Laceration with infection. Evaluate for evidence of necrotizing fasciitis. COMPARISON STUDY: Right tibia and fibula radiographs performed earlier today. TECHNIQUE: Axial images of the right lower leg were obtained following intravenous injection of 120 cc Optiray 320 IV. Sagittal and coronal reconstructions were viewed. Automated exposure control was utilized for the study. A dose lowering technique was utilized adhering to the principles of ALARA. FINDINGS: Severe osteoarthritis within the patellofemoral compartment of the right knee is noted as well as moderate to severe osteoarthritis within the medial compartment of the right knee. There is no evidence for osteomyelitis within the right tibia or fibula. A marker was placed in the skin at site of lac eration. There is subcutaneous infiltration of the right lower leg. There is no soft tissue gas. There is no fluid collection. Extensive atherosclerotic plaque within the right calf vessels are noted. Stenosis cannot be assessed for on this exam given timing of contrast administration as well as extensive calcified plaque. IMPRESSION: 1. Subcutaneous infiltration of the right lower leg. This may reflect edema or cellulitis. No fluid collection to suggest abscess or hematoma. No soft tissue gas. No radiopaque foreign body. 2. Severe right knee osteoarthritis. 3. Extensive atherosclerotic plaque of the right calf vessels, suboptimally assessed on this non-CTA exam. ACT 112: Negative or not required by law. Electronically signed by: Luis Ibarra M.D. 11/29/2020 12:[address] 11/29/20 10:43 CT OF THE HEAD WITHOUT CONTRAST CLINICAL HISTORY: Headache. Sepsis. COMPARISON STUDY: No previous studies for comparison. CT DOSE: 773.97 mGy.cm TECHNIQUE: Helical axial images of the head were obtained without IV contrast. Automated exposure control was utilized for the study. A dose lowering technique was utilized adhering to the principles of ALARA. FINDINGS: No acute intracranial hemorrhage, midline shift or mass effect is present. The ventricular system is unremarkable. Cavum septum pellucidum is noted. The basal cisterns are patent. No extra-axial collections are present. There are no findings to suggest acute dural sinus thrombosis or acute territorial infarct. No significant calvarial abnormalities are present. Visualized portions of the sinuses and mastoid air cells are clear. IMPRESSION: No acute intracranial findings. ACT 112: Negative or not required by law. Electronically signed by: Luis Ibarra M.D. 11/29/2020 12:00 PM Discharge Plan Visit Data Chief Complaint: Infection, Wound Stated Complaint: INFECTION ON ANKLE ED Provider: Frederick Callejas Discharge Problem: Sepsis, Cellulitis of leg, right, Abnormal EKG Patient Disposition: Admitted As Inpatient Condition: Good Discharge Instructions Interventions: ED Discharge Assessment Last Done: 11/29/20 15:55 Discharge Problem: Sepsis Qualifiers: Sepsis type: sepsis due to unspecified organism Sepsis acute organ dysfunction status: unspecified Qualified Code(s): A41.9 - Sepsis, unspecified organism
--- NOTE | 2020-11-29 08:15 | XRay Report ---
XR chest 1V portable CLINICAL HISTORY: Fever COMPARISON STUDY: Chest CT July 11, 2019. FINDINGS: Lung volumes are normal. There is no pneumothorax or pleural effusion. Moderate to marked c ardiomegaly is unchanged. A left pacer is in place. There are median sternotomy wires. IMPRESSION: No acute cardiopulmonary findings. Moderate to marked cardiomegaly. ACT 112: Negative or not required by law. Electronically signed by: Luis Ibarra M.D. 11/29/2020 8:13 AM
--- NOTE | 2020-11-29 08:17 | XRay Report ---
XR tibia fibula RT 2V CLINICAL HISTORY: Injury and swelling. COMPARISON: None FINDINGS: A calcification projecting over the distal patellar tendon is chronic. No acute fracture w ithin the right tibia or fibula is identified. Soft tissue swelling is greatest within the lower leg and ankle. There is severe medial and patellofemoral compartment osteoarthritis of the right knee. IMPRESSION: 1. No acute fracture within the right tibia or fibula. 2. Severe osteoarthritis within the medial and patellofemoral compartments of the right knee. ACT 112: Negative or not required by law. Electronically signed by: Luis Ibarra M.D. 11/29/2020 8:15 AM
[2020-11-29 08:33] LABS: Eosinophils # (auto) 0.01 K/uL (0-0.5); Eosinophils % (auto) 0.1 %; Hematocrit (blood only) 45.1 % (42-52); Immature Granulocytes # (auto) 0.06 K/uL (0.00-0.02); Immature Granulocytes % (auto) 0.5 %; Lymphocytes # (auto) 1.06 K/uL (1.2-3.4); Lymphocytes % (auto) 8.4 %; Mean Corpuscular Hemoglobin 31.6 pg (25-34); Mean Corpuscular Hgb Conc 33.3 g/dL (32-36); Mean Corpuscular Volume 95.1 fL (80-100); Mean Platelet Volume 9.8 fL (7.4-10.4); Monocytes # (auto) 0.48 K/uL (0.11-0.59); Monocytes % (auto) 3.8 %; Neutrophils # (auto) 10.96 K/uL (1.4-6.5); Neutrophils % (auto) 87.2 %; Platelet Count 189 K/uL (130-400); RDW Coefficient of Variation 14.5 % (11.5-14.5); RDW Standard Deviation 50.9 fL (36.4-46.3); Red Blood Count 4.74 M/uL (4.7-6.1); White Blood Count 12.57 K/uL (4.8-10.8)
[2020-11-29 08:51] LABS: INR 4.1 (0.9-1.1); Partial Thromboplastin Ratio 1.1; Partial Thromboplastin Time 27.9 Seconds (21.0-31.0)
[2020-11-29 08:55] LABS: Albumin Level 3.9 gm/dl (3.4-5.0); BUN Creatinine Ratio 27.9 (10-20); Calcium 9.5 mg/dl (8.5-10.1); Creatinine Clr Calc Pharmacy 58.7 ml/min; Est GFR (African American) 78.2 ml/min; Est GFR (Non-African American) 67.5 ml/min; Potassium 3.6 mmol/L (3.5-5.1)
[2020-11-29 08:59] LABS: Albumin Globulin Ratio 1.2 (0.9-2); Bilirubin,Total 2.3 mg/dl (0.2-1); Globulin 3.4 gm/dl (2.5-4.0); Total Protein 7.3 gm/dl (6.4-8.2); Troponin I 0.016 ng/ml (0-0.045)
[2020-11-29] MEDS ORDERED: ACETAMINOPHEN 500 MG TAB PO STA (09:06)
[2020-11-29] MEDS ORDERED: VANCOMYCIN HCL 1,750 MG in SODIUM CHLORIDE 0.9% 500 ML IV ONE (09:24)
[2020-11-29] MEDS ORDERED: VANCOMYCIN CONSULT ACTIVE PRN ×2 (09:24→15:57)
[2020-11-29] MEDS ORDERED: SODIUM CHLORIDE 0.9% 500 ML IV ONE (09:24)
--- NOTE | 2020-11-29 10:06 | Electrocardiogram Report ---
Test Reason : Blood Pressure : / mmHG Vent. Rate : 053 BPM Atrial Rate : 063 BPM P-R Int : 000 ms QRS Dur : 090 ms QT Int : 458 ms P-R-T Axes : 000 040 -80 degrees QTc Int : 429 ms Atrial fibrillation with a Junctional rhythm c/w Complete HB Anterior infarct , age undetermined Abnormal ECG When compared with ECG of 27-MAY-2009 06:38, Junctional rhythm and CHB are present Marked ST/T changes are new T wave inversion more evident in Inferior leads T wave inversion now evident in Anterolateral leads Confirmed by Samuel Sharif ([id number]) on 11/29/2020 10:06:23 AM Referred By: REFERRED SELF Confirmed By:Samuel Sharif
[2020-11-29] MEDS ORDERED: SODIUM CHLORIDE 0.9% 1000ML 500 ML IV ONE (10:38)
[2020-11-29] MEDS ORDERED: STAT IV Infusion **Titration per Protocol STA (11:04)
[2020-11-29] MEDS ORDERED: NOREPINEPHRINE/D5W 8 MG/508 ML BAG IV SCH (11:15)
[2020-11-29] MEDS ORDERED: OPTIRAY 320 125ml IV ONE (11:44)
--- NOTE | 2020-11-29 12:01 | CT Scan Report ---
CT OF THE HEAD WITHOUT CONTRAST CLINICAL HISTORY: Headache. Sepsis. COMPARISON STUDY: No previous studies for comparison. CT DOSE: 773.97 mGy.cm TECHNIQUE: Helical axial images of the head were obtained without IV contrast. Automated exposure con trol was utilized for the study. A dose lowering technique was utilized adhering to the principles o f ALARA. FINDINGS: No acute intracranial hemorrhage, midline shift or mass effect is present. The ventricular system is unremarkable. Cavum septum pellucidum is noted. The basal cisterns are patent. No extra-axi al collections are present. There are no findings to suggest acute dural sinus thrombosis or acute te rritorial infarct. No significant calvarial abnormalities are present. Visualized portions of the sin uses and mastoid air cells are clear. IMPRESSION: No acute intracranial findings. ACT 112: Negative or not required by law. Electronically signed by: Luis Ibarra M.D. 11/29/2020 12:00 PM
--- NOTE | 2020-11-29 12:06 | CT Scan Report ---
CT ANGIOGRAPHY OF THE CHEST, PULMONARY EMBOLUS PROTOCOL CLINICAL HISTORY: Sepsis. COMPARISON STUDY: Chest CT July 11, 2019. Chest radiograph performed earlier today. TECHNIQUE: Following IV administration of 120 mL of Optiray, helical axial images of the chest were o btained utilizing the pulmonary embolus protocol. Maximal intensity projections and sagittal and cor onal reformats were viewed on an independent 3D workstation. IV contrast was administered without co mplication. Automated exposure control was utilized for the study. A dose lowering technique was ut ilized adhering to the principles of ALARA. CT DOSE: 1592.59 mGy.cm FINDINGS: No pulmonary emboli are identified although the segmental and subsegmental pulmonary arter ies are suboptimally assessed due to respiratory motion. Mediastinal wires are noted. There are posto perative findings of the thoracic aorta. The thoracic aorta is suboptimally assessed given minimal op acification. Grossly, this appears unchanged since CT of July 11, 2019. Marked cardiomegaly is again noted. There is no pneumothorax. No pleural effusion is noted. Groundglass opacities favor atelectasi s. There is no consolidation. Abdomen and pelvis will be reported separately. IMPRESSION: 1. No pulmonary emboli identified although segmental and subsegmental pulmonary arteries suboptimally assessed due to respiratory motion. 2. Marked cardiomegaly. 3. Postoperative findings of the thoracic aorta, suboptimally assessed on this exam. 4. No consolidation to suggest pneumonia. ACT 112: Negative or not required by law. Electronically signed by: Luis Ibarra M.D. 11/29/2020 12:05 PM
--- NOTE | 2020-11-29 12:12 | CT Scan Report ---
CT OF THE ABDOMEN AND PELVIS WITH CONTRAST CLINICAL HISTORY: Sepsis. COMPARISON STUDY: CTA of the abdomen and pelvis July 11, 2019. TECHNIQUE: Following IV administration of 120 mL of Optiray, axial images of the abdomen and pelvis w ere obtained from the lung bases to the proximal femurs. Images were reviewed in the axial, sagittal, and coronal planes. IV contrast was administered without complication. Automated exposure control w as utilized for the study. A dose lowering technique was utilized adhering to the principles of ALEXANDER Nugent. FINDINGS: A 3 mm right lower lobe nodule is unchanged since CT of July 11, 2019. This is likely benig n. The chest will be reported separately. Marked cardiomegaly is noted. There is no pneumatosis, free air or portal venous gas. 3.4 cm infrarenal abdominal aortic aneurysm is similar to prior exam. Ther e is no evidence for rupture. There are gallstones within the gallbladder. There is mild gallbladder wall thickening. This is a nonspecific finding. There is periportal edema. Mild dilatation of the hep atic veins and the IVC. The spleen, adrenal glands and pancreas are unremarkable. There is no biliary or pancreatic ductal dilatation. There is a cyst within the upper pole of the right kidney. Colonic diverticulosis is noted without evidence for acute diverticulitis. A left femoral central line is in place. There is right groin infiltration. Prostate is surgically absent. There is no lymphadenopathy. IMPRESSION: 1. Cholelithiasis with mild gallbladder distention and mild gallbladder wall thickening, a nonspecifi c finding, particularly given evidence for right heart dysfunction. However, if right upper quadrant pain, ultrasound is recommended as acute cholecystitis would be difficult to completely exclude. 2. Mild right groin infiltration, partially imaged. No fluid collection. This may be posttraumatic or infectious. 3. No change in a 3.4 cm infrarenal abdominal aortic aneurysm. ACT 112: Negative or not required by law. Electronically signed by: Luis Ibarra M.D. 11/29/2020 12:11 PM
--- NOTE | 2020-11-29 12:29 | CT Scan Report ---
CT tib/fib RT w con CLINICAL HISTORY: Laceration with infection. Evaluate for evidence of necrotizing fasciitis. COMPARISON STUDY: Right tibia and fibula radiographs performed earlier today. TECHNIQUE: Axial images of the right lower leg were obtained following intravenous injection of 120 c c Optiray 320 IV. Sagittal and coronal reconstructions were viewed. Automated exposure control was ut ilized for the study. A dose lowering technique was utilized adhering to the principles of ALARA. FINDINGS: Severe osteoarthritis within the patellofemoral compartment of the right knee is noted as w ell as moderate to severe osteoarthritis within the medial compartment of the right knee. There is no evidence for osteomyelitis within the right tibia or fibula. A marker was placed in the skin at site of laceration. There is subcutaneous infiltration of the right lower leg. There is no soft tissue ga s. There is no fluid collection. Extensive atherosclerotic plaque within the right calf vessels are n oted. Stenosis cannot be assessed for on this exam given timing of contrast administration as well as extensive calcified plaque. IMPRESSION: 1. Subcutaneous infiltration of the right lower leg. This may reflect edema or cellulitis. No fluid c ollection to suggest abscess or hematoma. No soft tissue gas. No radiopaque foreign body. 2. Severe right knee osteoarthritis. 3. Extensive atherosclerotic plaque of the right calf vessels, suboptimally assessed on this non-CTA exam. ACT 112: Negative or not required by law. Electronically signed by: Luis Ibarra M.D. 11/29/2020 12:28 PM
[2020-11-29] MEDS ORDERED: KETOROLAC TROMETHAMINE 15 MG/ML VIAL IV ONE (13:12)
--- NOTE | 2020-11-29 14:31 | History & Physical Report ---
Date of Service November 29, 2020 Assessment & Plan (1) Sepsis: Plan: 85 y/o M Hx hypothyroidism HTN, HLD, CAD, AF - pacer. Presents with infection of the RLE, fevers/chills and lightheadedness. The pt was gardening 3 days ago and suffered minor trauma to his RLE above the ankle. Over the next 3 days, the area became swollen, erythematous and tender. He then developed fevers and lightheadedness. The pt was hypotensive and febrile on arrival to the ER. He did not respond to an initial fluid bolus. He was placed on pressors therefore. Labs are notable for leukocytosis and an elevated lactic. An EKG was abnormal with a junctional rhythm, diffuse deep T wave inversions and CHB - when not paced. He has not had related symptoms. 1) Cellulitis with sepsis requiring pressors - Pt is assigned to the ICU on Levophed. Vanc/Zosyn provided pending culture results. Cont IVF. 2) EKG changes - Unclear if the changes are acute as they may be apparent when his HR slows down prior to pacing. We have requested an echo however, and will repeat a trop. He does not have CP and does not c/o SOB. A cardiogenic element to his hypotension is a concern. 3) CAD - abnormal EKG as above - echo pending - cont ASA, Crestor. Anticoagulated. 4) AF - anticoagulated with Coumadin - does not require rate agents and is paced at 50 5) HTN - meds held due to hypotension 6) HLD - cont statin 7) Hypothyroidism - cont Synthroid Full code - Coumadin prophylaxis Total time for this admit including review of labs, meds, imaging, records - discussion with pt and ER attending - 55 min (2) Cellulitis of leg, right: (3) Pacemaker: (4) Hypertension: (5) Dyslipidemia: (6) Coronary artery disease: History of Present Illness Chief Complaint: Infection R foot Primary Care Provider: Steven Danielson MD 85 y/o M Hx hypothyroidism HTN, HLD, CAD, AF - pacer. Presents with infection of the RLE, fevers/chills and lightheadedness. The pt was gardening 3 days ago and suffered minor trauma to his RLE above the ankle. Over the next 3 days, the area became swollen, erythematous and tender. He then developed fevers and lightheadedness. The pt was hypotensive and febrile on arrival to the ER. He did not respond to an initial fluid bolus. He was placed on pressors therefore. Labs are notable for leukocytosis and an elevated lactic. An EKG was abnormal with a junctional rhythm, diffuse deep T wave inversions and CHB - when not paced. He has not had related symptoms. PMH: 1) CAD 2) HTN 3) HLD 4) AF - slow ventricular response 5) Pacer - rate-activated at 50BPM 6) Hypothyroidism 7) Thoracic aortic aneurysm Surgical: 1) Repair of ascending aortic aneurysm with arch replacement 2017 2) Pacer placement 2018 3) RCA stent 2009 Social: Does not drink or smoke. 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 [employer] Family: Noncontributory owing to pt's age Allergies Allergy/AdvReac Type Severity Reaction Status Date / Time No Known Allergies Allergy Mild NONE Verified 07/18/20 11:10 Home Medications Medication Instructions Recorded Confirmed Type aspirin 81 mg tablet 81 mg PO DAILY #90 tab 12/12/18 11/29/20 History nitroglycerin 0.4 mg sublingual 0.4 mg SL Q5M PRN #25 tab 12/12/18 11/29/20 History tablet levothyroxine 88 mcg tablet 88 mcg PO DAILY #90 tab 02/05/20 11/29/20 Rx rosuvastatin 40 mg tablet 40 mg PO DAILY #90 tab 03/19/20 11/29/20 Rx warfarin 5 mg tablet 5 mg PO DAILY #90 tab 05/14/20 11/29/20 Rx lisinopril 5 mg tablet 5 mg PO DAILY #90 tab 06/12/20 11/29/20 Rx diclofenac sodium 50 mg 50 mg PO DAILY #90 tab 11/25/20 11/29/20 Rx tablet,delayed release Past Med/Surg History Medical History Aneurysm of infrarenal abdominal aorta Aortic regurgitation Atrial fibrillation Bradycardia Coronary artery disease PCI to RCA with stent in 2009 Dyslipidemia H/O amaurosis fugax Hypertension Hypothyroidism (acquired) Mitral regurgitation Pacemaker Implantation of single-chamber Medtronic pacemaker 06/02/2018 Symptomatic bradycardia Thoracic aortic dissection Repair May 2017 Surgical History History of cataract surgery History of inguinal hernia repair, bilateral S/P thoracic aortic aneurysm repair Status post coronary artery stent placement right proximal Status post Mohs surgery face Family History Mother Coronary heart disease Social History Smoking Status: Never smoker Hx Alcohol Use: No Hx Substance Use: Yes Beliefs That Will Affect Care: None Current Living Situation: Spouse Feels Safe at Home: Yes Assistive Devices: None Review of Systems Review of Systems: Gen: Denies fevers, night sweats, rigors, fatigue, malaise, weight loss/gain ENT: Denies congestion, throat pain, hearing loss Eyes: Denies acute visual changes CV: Denies CP, palpitations Pulmonary: Denies SOB, cough, wheezing GI: Denies N/V, diarrhea, constipation Neuro: Denies acute or unilateral weakness, acute gait impairment, headache or acute visual changes Musculoskeletal: Pain, swelling, redness of RLE Endocrine: Denies polydipsia, polyuria Skin: Erythema RLE Physical Exam Physical Exam: General: AAO x 3, no distress ENT: No erythema or exudates, no thrush Eyes: NAYELI, EOMI Head and neck: Normocephalic, atraumatic, No JVD, neck is supple. Chest/heart: Nontender, S1,2, RRR, no murmurs, no gallops Lungs: CTAB, no wheezing or crackles Abdomen: Nontender, nondistended, BS+ Neuro: AAO x 3, speech is clear, no unilateral weakness or loss of sensation, coordination intact Musculoskeletal: Extensive cellulitis of RLE medically Skin: No acute rashes or ulcers Extremities: Erythema, edema RLE Results & Data Results & Data ([facility]) Vital Signs (Past 12 Hours) Vital Signs Temp Pulse Pulse Resp BP BP Pulse Ox 11/29/20 14:19 51 L 22 110/60 98 11/29/20 13:43 50 L 17 108/57 L 98 11/29/20 13:33 50 L 18 108/57 L 98 11/29/20 13:20 99.0 F 11/29/20 13:09 50 L 16 103/52 L 99 11/29/20 12:31 51 L 19 92/52 L 97 11/29/20 12:18 50 L 19 90/55 L 98 11/29/20 11:57 51 L 13 90/69 L 99 11/29/20 11:21 50 L 20 88/52 L 11/29/20 11:17 52 L 18 78/50 L 11/29/20 11:07 50 L 16 74/45 L 96 11/29/20 11:00 50 L 18 11/29/20 10:50 54 L 23 100 11/29/20 10:46 52 L 19 99 11/29/20 10:34 51 L 16 89/55 L 100 11/29/20 10:30 55 L 21 89/55 L 100 11/29/20 10:15 62 22 69/42 L 11/29/20 10:13 50 L 16 69/44 L 97 11/29/20 10:01 52 L 22 70/42 L 11/29/20 09:30 54 L 16 81/48 L 11/29/20 09:10 98.6 F 56 L 16 81/50 L 96 11/29/20 09:00 54 L 20 11/29/20 08:50 57 L 18 11/29/20 08:40 54 L 22 11/29/20 07:34 97.9 F 97 H 18 86/57 L 99 Laboratory Results XR leg: Subcutaneous infiltration of the right lower leg. This may reflect edema or cellulitis. PG Care Time/CCT Total # of Minutes Spent Total Time Spent with Patient: Total time spent is greater than 50% in coordination of care (as documented) at patient's floor/unit and/or counseling patient: Coding Level of Care Code 62460 Initial Inpt Care Lvl 3 Diagnoses Sepsis A41.9 Sepsis acute organ dysfunction status: unspecified Sepsis type: sepsis due to unspecified organism Cellulitis of leg, right L03.115 Pacemaker Z95.0 Hypertension I10 Dyslipidemia E78.5 Coronary artery disease I25.10 (1) Sepsis Sepsis acute organ dysfunction status: unspecified Sepsis type: sepsis due to unspecified organism Qualified Code(s): A41.9 - Sepsis, unspecified organism
[2020-11-29] MEDS ORDERED: NITROGLYCERIN SL 0.4 MG/TAB TAB SL PRN (15:57)
[2020-11-29] MEDS ORDERED: PIPERACILLIN/TAZOBACTAM 3.375 GM in DEXTROSE 5% 100 ML IV SCH (15:57)
[2020-11-29] MEDS ORDERED: PIPERACILL/TAZOBAC CONSULT ACTIVE PRN (15:57)
[2020-11-29] MEDS ORDERED: ICU PROTOCOL FOR HYPERGLYCEMIA PRN (15:57)
[2020-11-29] MEDS ORDERED: PIPERACILLIN/TAZOBACTAM 3.375 GM in DEXTROSE 5% 100 ML IV ONE (16:15)
[2020-11-29] MEDS ORDERED: NSS + 20MEQ KCL 20 MEQ/1,000 ML BAG IV SCH (16:30)
--- NOTE | 2020-11-29 17:45 | Pharmacy Report ---
Pharmacy Abx Initial Consult - Date of Service November 29, 2020 - Pharmacy Dosing Scope Date of Consult: 11/29/20 Consultation requested by: Dr. Conte Pharmacy is consulted to initiate Vancomycin + Zosyn IV dosing therapy, order appropriate labs and adjust drug dose/frequency. - Subjective The patient is a 85 year old M admitted on 11/29/20 14:55. - Objective Height: 6 ft Weight: 84.5 kg Vital Signs (Past 12hrs): Vital Signs Temp Pulse Pulse Resp BP BP Pulse Ox 11/29/20 16:29 36.6 C 51 L 20 90/54 L 97 11/29/20 16:00 53 L 18 97 11/29/20 15:57 36.7 C 50 L 20 90/54 L 98 11/29/20 15:56 52 L 20 95 11/29/20 15:30 50 L 21 106/54 L 99 11/29/20 15:15 44 L 19 105/62 97 11/29/20 15:00 50 L 22 104/57 L 97 11/29/20 14:45 52 L 23 109/59 L 97 11/29/20 14:30 50 L 20 108/55 L 96 11/29/20 14:19 51 L 22 110/60 98 11/29/20 14:15 54 L 12 110/60 99 11/29/20 14:00 50 L 18 99/56 L 96 11/29/20 13:45 50 L 20 106/54 L 99 11/29/20 13:43 50 L 17 108/57 L 98 11/29/20 13:33 50 L 18 108/57 L 98 11/29/20 13:30 50 L 18 108/57 L 98 11/29/20 13:20 37.2 C 11/29/20 13:15 50 L 23 88/54 L 99 11/29/20 13:09 50 L 16 103/52 L 99 11/29/20 13:00 50 L 19 103/52 L 98 11/29/20 12:48 50 L 20 84/55 L 99 11/29/20 12:31 51 L 19 92/52 L 97 11/29/20 12:30 50 L 20 92/52 L 97 11/29/20 12:18 50 L 19 90/55 L 98 11/29/20 12:15 50 L 18 90/55 L 98 11/29/20 12:00 46 L 18 101/57 L 98 11/29/20 11:57 51 L 13 90/69 L 99 11/29/20 11:54 50 L 17 90/69 L 98 11/29/20 11:21 50 L 20 88/52 L 11/29/20 11:17 52 L 18 78/50 L 11/29/20 11:07 50 L 16 74/45 L 96 11/29/20 11:00 50 L 18 11/29/20 10:50 54 L 23 100 11/29/20 10:46 52 L 19 99 11/29/20 10:34 51 L 16 89/55 L 100 11/29/20 10:30 55 L 21 89/55 L 100 11/29/20 10:15 62 22 69/42 L 11/29/20 10:13 50 L 16 69/44 L 97 11/29/20 10:01 52 L 22 70/42 L 11/29/20 09:30 54 L 16 81/48 L 11/29/20 09:10 37 C 56 L 16 81/50 L 96 11/29/20 09:00 54 L 20 11/29/20 08:50 57 L 18 11/29/20 08:40 54 L 22 11/29/20 07:34 36.6 C 97 H 18 86/57 L 99 Pulse Ox 11/29/20 16:29 11/29/20 16:00 11/29/20 15:57 98 11/29/20 15:56 11/29/20 15:30 11/29/20 15:15 11/29/20 15:00 11/29/20 14:45 11/29/20 14:30 11/29/20 14:19 11/29/20 14:15 11/29/20 14:00 11/29/20 13:45 11/29/20 13:43 11/29/20 13:33 11/29/20 13:30 11/29/20 13:20 11/29/20 13:15 11/29/20 13:09 11/29/20 13:00 11/29/20 12:48 11/29/20 12:31 11/29/20 12:30 11/29/20 12:18 11/29/20 12:15 11/29/20 12:00 11/29/20 11:57 11/29/20 11:54 11/29/20 11:21 11/29/20 11:17 11/29/20 11:07 11/29/20 11:00 11/29/20 10:50 11/29/20 10:46 11/29/20 10:34 11/29/20 10:30 11/29/20 10:15 11/29/20 10:13 11/29/20 10:01 11/29/20 09:30 11/29/20 09:10 11/29/20 09:00 11/29/20 08:50 11/29/20 08:40 11/29/20 07:34 Lab Results (24hrs): Laboratory Tests (24 Hours) 11/29/20 11/29/20 11/29/20 08:23 08:23 08:23 WBC Neut # (Auto) ESR 4 Creatinine 1.01 Est Cr Clr Drug Dosing 58.7 Procalcitonin 4.64 H 11/29/20 08:23 WBC 12.57 H Neut # (Auto) 10.96 H ESR Creatinine Est Cr Clr Drug Dosing Procalcitonin Micro Results: 11/29/20 08:51 Aerobic Blood Culture - Pending Blood Anaerobic Blood Culture - Pending 11/29/20 08:23 Aerobic Blood Culture - Pending Blood Anaerobic Blood Culture - Pending - Assessment & Plan Assessment 85 year old M initiated on IV Vancomycin + Zosyn for sepsis secondary to SST Plan Vancomycin IV * Patient meets criteria for vancomycin AUC dosing nomogram * AUC/MEKA is the preferred PK/PD target for vancomycin * Target AUC/MEKA = 400-600 * AUC guided dosing is effective and associated with decreased risk of nephrotoxicity * Loading dose: 1,750 mg (20 mg/kg) given in ED * Maintenance dose: 1,000 mg IV (12 mg/kg) every 12 hours * Goal trough level for bacteremia : 15 to 20 mcg/mL * Trough/Random level ordered for 12/01/20 @ 0900 Piperacillin/tazobactam * 3.375 g bolus administered over 30 minutes, then 3.375 g IV extended infusion every 8 hours for CrCl greater than 20 mL/min Pharmacy will continue to follow and will adjust dose/frequency as necessary. Thank you.
--- NOTE | 2020-11-29 17:59 | Critical Care Consultation ---
Date of Consultation November 29, 2020 Assessment & Plan (1) Septic shock: 85-year-old male with a past medical history as noted above presenting with septic shock secondary to cellulitis of the right lower extremity. He is also found to be bradycardic and is currently pacing in a sep arate of 50 bpm. Continue with vancomycin and Zosyn. Follow-up blood cultures. Trend procalcitonin. Follow urine output. Echocardiogram reviewed with evidence of mild RV failure. This is likely contributing to his hypertension as well. Hold warfarin today as his INR supratherapeutic. Suspect this will likely trend upwards. I spoke with the [employer] rep with regards to increasing his heart rate to 70 bpm to help augment his cardiac output. The [employer] rep will come increase the heart rate. Continue Levophed peripherally through IV for the time being. He is only requiring 0.05 Levophed. We will also give a liter of lactated Ringer's additionally to help improve his blood pressure. He is currently saturating 97% on room air it does not appear to be in any distress. We are replacing potassium. We will nicho the area of cellulitis with a felt marker. Left femoral central line placed by ER on 11/30/1939. CRITICAL CARE TIME - I have personally spent 35 minutes of critical care time in the direct management of this patient. This is a life/limb threatening event. This includes time spent evaluating patient, direct bedside care, chart review, placing orders, interpretation of diagnostic studies, discussion with consultants, patient, and family members, as well as other required patient management activities. This time is exclusive of all separately billable procedures, and teaching time and separate from and in addition to any other critical care service time. (2) Cellulitis of leg, right: (3) Bradycardia: (4) Pacemaker: History of Present Illness Attending Physician: Sriram Conte MD History of Present Illness 85-year-old male with past medical history of pacemaker placement in 2019 ([employer]tr[employer] as her pacemaker placed in 2019, single lead ventricular pacer), atrial fibrillation, coronary artery disease, hypertension and hyperlipidemia who presented to the hospital due to lightheadedness and fever. While gardening patient had some trauma to his right lower extremity. It is now swollen and tender. He was found to be hypotensive in the ER. Lower extremity CT chest demonstrated subcutaneous infiltration in the right lower leg. Extensive atherosclerotic plaque of the right calf vessels was noted. Chest CTA demonst rated cardiomegaly. No significant pneumonia or infiltrate was seen. CT head without acute findings. He notes that 3 days ago he was planting perennial elias and he hit his right ankle with a shovel. He noticed the wound immediately. Since then he has been having increasing swelling and pain. He notes having a headache earlier today. Echo obtained today with an EF of 60 to 65%. Right ventricle is moderately dilated. PA pressures estimated at 45mmHg. Mild aortic regurg with moderate aortic valve sclerosis noted. Grade 2 diastolic dysfunction was seen. Patient is currently saturating 97% on room air. He received approximately 2 L of crystalloid. Lactate was modestly elevated to 2.3. Procalcitonin 4.64. He is currently on norepinephrine. He is receiving vancomycin and Zosyn. His INR is 4.1. He is on warfarin. Allergies Allergy/AdvReac Type Severity Reaction Status Date / Time No Known Allergies Allergy Mild NONE Verified 07/18/20 11:10 Home Medications Medication Instructions Recorded Confirmed Type aspirin 81 mg tablet 81 mg PO DAILY #90 tab 12/12/18 11/29/20 History nitroglycerin 0.4 mg sublingual 0.4 mg SL Q5M PRN #25 tab 12/12/18 11/29/20 History tablet levothyroxine 88 mcg tablet 88 mcg PO DAILY #90 tab 02/05/20 11/29/20 Rx rosuvastatin 40 mg tablet 40 mg PO DAILY #90 tab 03/19/20 11/29/20 Rx warfarin 5 mg tablet 5 mg PO DAILY #90 tab 05/14/20 11/29/20 Rx lisinopril 5 mg tablet 5 mg PO DAILY #90 tab 06/12/20 11/29/20 Rx diclofenac sodium 50 mg 50 mg PO DAILY #90 tab 11/25/20 11/29/20 Rx tablet,delayed release Patient History Medical History (Updated 11/29/20 @ 18:19 by Jameson Fitch MD) Aneurysm of infrarenal abdominal aorta Aortic regurgitation Atrial fibrillation Bradycardia Bradycardia Coronary artery disease PCI to RCA with stent in 2009 Dyslipidemia H/O amaurosis fugax Hypertension Hypothyroidism (acquired) Mitral regurgitation Pacemaker Implantation of single-chamber Medtronic pacemaker 06/02/2018 Septic shock Symptomatic bradycardia Thoracic aortic dissection Repair May 2017 Surgical History History of cataract surgery History of inguinal hernia repair, bilateral S/P thoracic aortic aneurysm repair Status post coronary artery stent placement right proximal Status post Mohs surgery face Family History Mother Coronary heart disease Social History Smoking Status: Never smoker Hx Alcohol Use: Yes Alcohol type: wine Hx Substance Use: No Preferred Language: [place]an Communication Ability: Effective Over The Road Driver Required: No Beliefs That Will Affect Care: None Current Living Situation: Spouse Other Information That Helps Us Care for You: No Feels Safe at Home: Yes Safety Concerns: Feels Safe At This Time Assistive Devices: Cane, Glasses and Hearing Aid - Right Review of Systems Review of Systems: All systems reviewed & are unremarkable except as noted in HPI & below Physical Exam Physical Exam: Constitutional: Patient appears to be of their stated age. Patient is in no apparent distress. Patient is well-developed. Eyes: Pupils are equal round and reactive to light. Conjunctivae are normal. Anicteric sclera. Ears nose, mouth and throat: Normal posterior oropharynx. Uvula is midline. Neck: Trachea is midline. Visual inspection is normal. Respiratory: Clear to auscultation bilaterally. No use of accessory muscles. No significant clubbing noted. Cardiovascular: Regular rate and rhythm. No murmurs. No edema. Gastrointestinal: Normal bowel sounds, soft, nontender and nondistended. No hepatosplenomegaly noted. Musculoskeletal: No cyanosis. Patient is able to move all extremities. Strength is 5 out of 5 in the upper and lower extremities. Skin: Swelling and redness noted circumferentially around the right ankle. Medially there appears to be slightly more swelling. Adequate distal pulses noted in the foot. Neurologic: No obvious focal neurological deficits seen. Psychiatric: Alert and oriented x3 with a euthymic affect. Results & Data Results & Data ([facility]) Vital Signs (Past 12 Hours) Vital Signs Temp Pulse Pulse Resp BP BP Pulse Ox 11/29/20 16:29 98 F 51 L 20 90/54 L 97 11/29/20 16:00 53 L 18 97 11/29/20 15:57 98.0 F 50 L 20 90/54 L 98 11/29/20 15:56 52 L 20 95 11/29/20 15:30 50 L 21 106/54 L 99 11/29/20 15:15 44 L 19 105/62 97 11/29/20 15:00 50 L 22 104/57 L 97 11/29/20 14:45 52 L 23 109/59 L 97 11/29/20 14:30 50 L 20 108/55 L 96 11/29/20 14:19 51 L 22 110/60 98 11/29/20 14:15 54 L 12 110/60 99 11/29/20 14:00 50 L 18 99/56 L 96 11/29/20 13:45 50 L 20 106/54 L 99 11/29/20 13:43 50 L 17 108/57 L 98 11/29/20 13:33 50 L 18 108/57 L 98 11/29/20 13:30 50 L 18 108/57 L 98 11/29/20 13:20 99.0 F 11/29/20 13:15 50 L 23 88/54 L 99 11/29/20 13:09 50 L 16 103/52 L 99 11/29/20 13:00 50 L 19 103/52 L 98 11/29/20 12:48 50 L 20 84/55 L 99 11/29/20 12:31 51 L 19 92/52 L 97 11/29/20 12:30 50 L 20 92/52 L 97 11/29/20 12:18 50 L 19 90/55 L 98 11/29/20 12:15 50 L 18 90/55 L 98 11/29/20 12:00 46 L 18 101/57 L 98 11/29/20 11:57 51 L 13 90/69 L 99 11/29/20 11:54 50 L 17 90/69 L 98 11/29/20 11:21 50 L 20 88/52 L 11/29/20 11:17 52 L 18 78/50 L 11/29/20 11:07 50 L 16 74/45 L 96 11/29/20 11:00 50 L 18 11/29/20 10:50 54 L 23 100 11/29/20 10:46 52 L 19 99 11/29/20 10:34 51 L 16 89/55 L 100 11/29/20 10:30 55 L 21 89/55 L 100 11/29/20 10:15 62 22 69/42 L 11/29/20 10:13 50 L 16 69/44 L 97 11/29/20 10:01 52 L 22 70/42 L 11/29/20 09:30 54 L 16 81/48 L 11/29/20 09:10 98.6 F 56 L 16 81/50 L 96 11/29/20 09:00 54 L 20 11/29/20 08:50 57 L 18 11/29/20 08:40 54 L 22 11/29/20 07:34 97.9 F 97 H 18 86/57 L 99 Pulse Ox 11/29/20 16:29 11/29/20 16:00 11/29/20 15:57 98 11/29/20 15:56 11/29/20 15:30 11/29/20 15:15 11/29/20 15:00 11/29/20 14:45 11/29/20 14:30 11/29/20 14:19 11/29/20 14:15 11/29/20 14:00 11/29/20 13:45 11/29/20 13:43 11/29/20 13:33 11/29/20 13:30 11/29/20 13:20 11/29/20 13:15 11/29/20 13:09 11/29/20 13:00 11/29/20 12:48 11/29/20 12:31 11/29/20 12:30 11/29/20 12:18 11/29/20 12:15 11/29/20 12:00 11/29/20 11:57 11/29/20 11:54 11/29/20 11:21 11/29/20 11:17 11/29/20 11:07 11/29/20 11:00 11/29/20 10:50 11/29/20 10:46 11/29/20 10:34 11/29/20 10:30 11/29/20 10:15 11/29/20 10:13 11/29/20 10:01 11/29/20 09:30 11/29/20 09:10 11/29/20 09:00 11/29/20 08:50 11/29/20 08:40 11/29/20 07:34 Vital signs, labs and imaging personally reviewed Coding Level of Care Code Critical Care 1st 30-74 mins Diagnoses Septic shock A41.9; R65.21 Cellulitis of leg, right L03.115 Bradycardia R00.1 Pacemaker Z95.0 Time Spent (min) 35
[2020-11-29] MEDS: ACETAMINOPHEN 325 MG TAB PO PRN (20:57)
[2020-11-29] MEDS: PIPERACILLIN/TAZOBACTAM 3.375 GM in DEXTROSE 5% 100 ML IV SCH (20:57)
[2020-11-29] MEDS: VANCOMYCIN HCL 1,000 MG in SODIUM CHLORIDE 0.9% 250 ML IV SCH (20:57)
[2020-11-29] MEDS ORDERED: fentaNYL citrate 100 MCG/2 ML VIAL IV PRN (22:17)
[2020-11-30] MEDS ORDERED: fentaNYL citrate 100 MCG/2 ML VIAL IV ONE (03:50)
[2020-11-30 05:25] LABS: Hematocrit (blood only) 37.2 % (42-52); Hemoglobin 12.3 g/dL (14.0-18.0); Immature Granulocytes # (auto) 0.31 K/uL (0.00-0.02); Immature Granulocytes % (auto) 1.8 %; Lymphocytes # (auto) 1.59 K/uL (1.2-3.4); Lymphocytes % (auto) 9.4 %; Mean Corpuscular Hemoglobin 31.4 pg (25-34); Mean Corpuscular Hgb Conc 33.1 g/dL (32-36); Mean Corpuscular Volume 94.9 fL (80-100); Mean Platelet Volume 9.9 fL (7.4-10.4); Monocytes # (auto) 0.67 K/uL (0.11-0.59); Neutrophils # (auto) 14.36 K/uL (1.4-6.5); Neutrophils % (auto) 84.8 %; Platelet Count 131 K/uL (130-400); RDW Coefficient of Variation 14.7 % (11.5-14.5); RDW Standard Deviation 50.5 fL (36.4-46.3); Red Blood Count 3.92 M/uL (4.7-6.1); White Blood Count 16.93 K/uL (4.8-10.8)
[2020-11-30 05:45] LABS: INR 4.5 (0.9-1.1); Prothrombin Time 40.6 Seconds (9.0-12.0)
[2020-11-30 05:58] LABS: BUN Creatinine Ratio 24.4 (10-20); Calcium 8.3 mg/dl (8.5-10.1); Creatinine Clr Calc Pharmacy 55.4 ml/min; Magnesium 1.9 mg/dl (1.8-2.4); Phosphorus 3.2 mg/dl (2.5-4.9); Potassium 5.5 mmol/L (3.5-5.1)
[2020-11-30] MEDS: PIPERACILLIN/TAZOBACTAM 3.375 GM in DEXTROSE 5% 100 ML IV SCH ×3 (06:23→22:36)
[2020-11-30] MEDS: LEVOTHYROXINE SODIUM 88 MCG TABLET PO SCH (06:23)
[2020-11-30] MEDS ORDERED: CALCIUM GLUCONATE 10% 2,000 MG in SODIUM CHLORIDE 0.9% 50 ML IV STA (06:24)
[2020-11-30] MEDS ORDERED: INSULIN HUMAN REGULAR PER UNIT 4 UNITS in SYRINGE 3.96 ML IV STA (06:25)
[2020-11-30] MEDS ORDERED: SODIUM CHLORIDE 0.9% 1000ML 500 ML IV ONE (06:25)
[2020-11-30] MEDS ORDERED: DEXTROSE 50% 50 ML SYRINGE IV ONE (06:25)
--- NOTE | 2020-11-30 06:35 | Ultrasound Report ---
RIGHT LOWER EXTREMITY VENOUS DOPPLER CLINICAL HISTORY: Right lower extremity laceration. Infection. Evaluate for deep venous thrombus. COMPARISON STUDY: No previous studies for comparison. TECHNIQUE: Sonography of the deep venous system of the right lower extremity was performed. Compress ion and augmentation were evaluated. FINDINGS: The right common femoral, superficial femoral and popliteal veins were compressible. Augme ntation was normal. Flow was shown within the deep calf vessels. IMPRESSION: No evidence of deep venous thrombus within the right lower extremity. ACT 112: Negative or not required by law. Electronically signed by: Luis Ibarra M.D. 11/30/2020 6:34 AM
--- NOTE | 2020-11-30 06:59 | XRay Report ---
XR tibia fibula RT 2V CLINICAL HISTORY: increasing swelling COMPARISON: Right tibia and fibula radiographs and CT of the right tibia and fibula November 29, 2020. FINDINGS: Severe osteoarthritis of the right knee is noted. There is extensive vascular calcificatio n within the right lower leg. Soft tissue swelling is again noted within the right lower leg and righ t ankle. No acute fracture is present within the right tibia or fibula. There is no evidence for oste omyelitis. IMPRESSION: 1. No fracture or evidence for osteomyelitis within the right tibia or fibula. 2. Right lower leg and right ankle soft tissue swelling. ACT 112: Negative or not required by law. Electronically signed by: Luis Ibarra M.D. 11/30/2020 6:57 AM
[2020-11-30 07:21] LABS: Potassium 4.6 mmol/L (3.5-5.1)
[2020-11-30] MEDS: ASPIRIN 81 MG ECTAB PO SCH (08:27)
[2020-11-30] MEDS: ROSUVASTATIN CALCIUM 20 MG TAB PO SCH (08:28)
[2020-11-30] MEDS: VANCOMYCIN HCL 1,000 MG in SODIUM CHLORIDE 0.9% 250 ML IV SCH (08:28)
--- NOTE | 2020-11-30 09:47 | Critical Care Progress Note ---
Date of Service November 30, 2020 Assessment & Plan (1) Septic shock: Plan: 85-year-old male with a past medical history as noted above presenting with septic shock secondary to cellulitis of the right lower extremity. He is also found to be bradycardic and is currently pacing in a separate of 50 bpm. Blood pressure is improved with additional fluid replacement overnight and increasing his heart rate on the pacemaker to 70 bpm. Blood cultures are growing gram-negative rods. I discontinue the vancomycin and started him on daptomycin and doxycycline. Continue Zosyn. Can likely de-escalate antibiotics based on culture data. I would still recommend keeping daptomycin on board. Continue holding warfarin as his INR is 4.5 today. He does have a history of atrial fibrillation. He had mild hyperkalemia which resolved with further fluid administration. Procalcitonin is trending upwards to 24.02. Continue to hold all antihypertensives. I think he is stable to be transferred to the floor today. (2) Cellulitis of leg, right: (3) Bradycardia: (4) Pacemaker: (5) Gram-negative bacteremia: Admission and Anticipated Discharge Date Admission Date: November 29, 2020 Subjective Patient seen and examined this morning. He is feeling approximately "40% better". Does have more redness and swelling in his right lower extremity. He denies any chest pain or shortness of breath. No fevers overnight. He has been off of Levophed since 1 AM last night. Review of Systems Review of Systems: All systems reviewed & are unremarkable except as noted in HPI & below Physical Exam Physical Exam: Constitutional: Patient appears to be of their stated age. Patient is in no apparent distress. Patient is well-developed. Eyes: Pupils are equal round and reactive to light. Conjunctivae are normal. Anicteric sclera. Ears nose, mouth and throat: Normal posterior oropharynx. Uvula is midline. Neck: Trachea is midline. Visual inspection is normal. Respiratory: Clear to auscultation bilaterally. No use of accessory muscles. No significant clubbing noted. Cardiovascular: Regular rate and rhythm. No murmurs. No edema. Gastrointestinal: Normal bowel sounds, soft, nontender and nondistended. No hepatosplenomegaly noted. Musculoskeletal: No cyanosis. Patient is able to move all extremities. Strength is 5 out of 5 in the upper and lower extremities. Skin: Swelling and redness noted circumferentially around the right ankle. Medially there appears to be slightly more swelling. Adequate distal pulses noted in the foot. Neurologic: No obvious focal neurological deficits seen. Psychiatric: Alert and oriented x3 with a euthymic affect. Results & Data Results & Data ([facility]) Vital Signs (Past 12 Hours) Vital Signs Temp Pulse Resp BP Pulse Ox 11/30/20 08:00 70 11/30/20 07:33 98.8 F 70 24 138/83 95 11/30/20 06:03 70 15 142/72 H 96 11/30/20 05:33 70 18 130/80 97 11/30/20 05:03 70 15 148/70 H 97 11/30/20 04:33 70 20 119/67 96 11/30/20 04:15 71 22 147/81 H 97 11/30/20 04:05 98.2 F 70 21 96 11/30/20 03:33 70 14 145/70 H 98 11/30/20 03:03 98.6 F 70 15 126/74 98 11/30/20 02:33 70 16 129/76 100 11/30/20 02:03 72 19 146/82 H 97 11/30/20 01:34 70 20 153/80 H 97 11/30/20 01:03 70 19 139/76 92 11/30/20 00:33 70 20 145/84 H 95 11/30/20 00:06 75 20 94 11/29/20 23:33 70 24 117/72 95 11/29/20 23:03 70 20 112/68 95 11/29/20 22:33 70 19 118/70 96 11/29/20 22:03 70 21 109/64 96 Vital signs, labs and imaging personally reviewed Coding Level of Care Code 17730 Subseq Hosp Care Lvl 3 Diagnoses Septic shock A41.9; R65.21 Cellulitis of leg, right L03.115 Bradycardia R00.1 Pacemaker Z95.0 Gram-negative bacteremia R78.81
[2020-11-30 10:28] LABS: BUN Creatinine Ratio 22.9 (10-20); Calcium 8.1 mg/dl (8.5-10.1); Creatinine Clr Calc Pharmacy 58.7 ml/min; Est GFR (African American) 78.2 ml/min; Est GFR (Non-African American) 67.5 ml/min; Magnesium 1.9 mg/dl (1.8-2.4); Potassium 4.5 mmol/L (3.5-5.1)
[2020-11-30 10:32] LABS: Phosphorus 2.6 mg/dl (2.5-4.9)
[2020-11-30] MEDS: DOXYCYCLINE HYCLATE 100 MG in DEXTROSE 5% 100 ML IV SCH ×2 (11:02→20:25)
[2020-11-30] MEDS: DAPTOmycin 475 MG in SYRINGE 0 ML IV SCH (11:02)
--- NOTE | 2020-11-30 11:12 | Hospitalist Progress Note ---
Date of Service November 30, 2020 Assessment & Plan (1) Septic shock: Plan: Secondary to GNB/cellulitis. Given worsening erythema and WBC coverage broadened to daptomycin, doxycycline and zosyn due to possibility of polymicrobial infection, if improving tomorrow this should be narrowed to Zosyn alone. Lactic serially elevated @ 2.8 this morning. Will repeat with AM labs. Shock now resolved off Levophed - can transfer out of ICU TTE and worsening peripheral edema suggestive of volume overloaded status after IV fluids given for volume resuscitation in setting of septic shock. Likely to need diuretics once more hemodynamically stable. Fortunately no acute kidney injury at the present time associated with shock or the infection. If stable overnight remove left femoral catheter. (2) Gram-negative bacteremia: Plan: No longer septic appearing. If getting worse consider adding aminoglycoside. Continue Zosyn pending further identification and sensitivities. (3) Cellulitis of leg, right: Plan: No fluid collection on CT. Elevate RLE as able. Arterial US ordered Venous doppler negative for DVT (4) Pacemaker: Plan: Single-chamber ventricular pacemaker placed May 2018 for study ventricular response to atrial fibrillation (5) Hypertension: Plan: In setting of septic shock we will hold his usual lisinopril. (6) Dyslipidemia: Plan: Continue rosuvastatin 40 mg p.o. daily (7) Coronary artery disease: Plan: S/p PCI to RCA in 2009. Stable since then. Continue aspirin, rosuvastatin. TTE -no significant wall motion abnormalities except that consistent with conduction abnormality from his single-chamber pacemaker. Dilated inferior vena cava with reduced collapsibility suggests multiple hemodynamically stable will likely need diuretics. (8) Thoracic aortic dissection: Plan: s/p repair 2017 (9) Atrial fibrillation: Plan: INR supratherapeutic. Aim 2-3. Hold warfarin. PT/INR daily Rate controlled without medication. (10) Hypothyroidism (acquired): Plan: Continue levothyroxine 88 mcg p.o. daily Plan: VTE prophylaxis - INR therapeutic 4.5, hold warfarin Code - Full Disposition - transfer to PCU now off Levophed Admission and Anticipated Discharge Date Admission Date: November 29, 2020 Subjective Alert and orientated x3. No fevers or chills. Off Levophed this morning. Reportedly much improved mentation since admission however right lower extremity erythema and swelling has increased. No chest pain, shortness of breath, abdominal pain, nausea, vomiting, nasal congestion, cough. Review of Systems Review of Systems: All systems reviewed & are unremarkable except as noted in HPI & below Physical Exam Constitutional: WD/WN, vitals as above Eyes: + anicteric sclerae; normal pupil size Respiratory: normal respiratory effort, lungs clear to auscultation Cardiovascular: Rate/Rhythm: regular rate and regular rhythm Heart Sounds: no murmur Vessels: posterior tibial pulses present (Bilateral) and dorsalis pedis pulses present (Bilateral) Extremities: + pedal edema (1+ pitting bilateral lower extremity) Gastrointestinal (Abdomen): normal bowel sounds, soft, nontender, no hepatosplenomegaly Musculoskeletal: no cyanosis or clubbing, extremities motor strength 5/5 Skin: + erythema (Distal medial swelling and erythema progressed from marked area) No fluctuant area within cellulitis Neurologic: moves all extremities and awake; not confused Psychiatric: A+Ox3, euthymic affect Results & Data Results & Data ([facility]) Vital Signs (Past 12 Hours) Vital Signs Temp Pulse Resp BP Pulse Ox 11/30/20 09:40 70 21 134/86 94 11/30/20 08:33 70 24 99/62 L 94 11/30/20 08:00 70 11/30/20 07:33 37.1 C 70 24 138/83 95 11/30/20 06:03 70 15 142/72 H 96 11/30/20 05:33 70 18 130/80 97 11/30/20 05:03 70 15 148/70 H 97 11/30/20 04:33 70 20 119/67 96 11/30/20 04:15 71 22 147/81 H 97 11/30/20 04:05 36.8 C 70 21 96 11/30/20 03:33 70 14 145/70 H 98 11/30/20 03:03 37 C 70 15 126/74 98 11/30/20 02:33 70 16 129/76 100 11/30/20 02:03 72 19 146/82 H 97 11/30/20 01:34 70 20 153/80 H 97 11/30/20 01:03 70 19 139/76 92 11/30/20 00:33 70 20 145/84 H 95 11/30/20 00:06 75 20 94 11/29/20 23:33 70 24 117/72 95 PG Care Time/CCT Total # of Minutes Spent Total Time Spent with Patient: Total time spent is greater than 50% in coordination of care (as documented) at patient's floor/unit and/or counseling patient: Coding Level of Care Code 71593 Subseq Hosp Care Lvl 3 Diagnoses Cellulitis of leg, right L03.115 Pacemaker Z95.0 Hypertension I10 Dyslipidemia E78.5 Coronary artery disease I25.10 Gram-negative bacteremia R78.81 Septic shock A41.9; R65.21 Thoracic aortic dissection I71.01 Atrial fibrillation I48.91 Hypothyroidism (acquired) E03.9
--- NOTE | 2020-11-30 14:05 | Ultrasound Report ---
ULTRASOUND US arterial duplex LE RT CLINICAL HISTORY: ?peripheral arterial disease COMPARISON STUDY: None FINDINGS: Real-time as well as Doppler evaluation of the arterial structures of the right lower extremity was p erformed. Waveforms are triphasic throughout. There is calcified plaques and increase peak systolic velocity within the right posterior tibialis ar wilbert measuring 164 cm per second consistent with stenosis. Velocities within other arteries of the right lower extremity is within normal limits and triphasic. Diffuse subcutaneous edema of the right leg limits evaluation. 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 No evidence of focal occlusions. Electronically signed by: Radha Castro DO 11/30/2020 2:04 PM
[2020-11-30] MEDS ORDERED: WARFARIN SOD 5 MG TAB PO SCH (16:00)
[2020-11-30] MEDS: ACETAMINOPHEN 325 MG TAB PO PRN (20:33)
[2020-11-30] MEDS: MELATONIN 3 MG TAB PO PRN (22:36)
[2020-12-01] MEDS ORDERED: MELATONIN 3 MG TAB PO ONE (01:50)
[2020-12-01] MEDS: ACETAMINOPHEN 325 MG TAB PO PRN ×2 (05:53→21:36)
[2020-12-01] MEDS: LEVOTHYROXINE SODIUM 88 MCG TABLET PO SCH (05:53)
[2020-12-01] MEDS: PIPERACILLIN/TAZOBACTAM 3.375 GM in DEXTROSE 5% 100 ML IV SCH ×3 (05:53→21:36)
[2020-12-01 07:52] LABS: Basophils # (auto) 0.01 K/uL (0-0.2); Basophils % (auto) 0.1 %; Eosinophils # (auto) 0.02 K/uL (0-0.5); Eosinophils % (auto) 0.1 %; Hematocrit (blood only) 35.2 % (42-52); Hemoglobin 11.8 g/dL (14.0-18.0); Immature Granulocytes # (auto) 0.27 K/uL (0.00-0.02); Immature Granulocytes % (auto) 1.6 %; Lymphocytes # (auto) 1.38 K/uL (1.2-3.4); Lymphocytes % (auto) 8.4 %; Mean Corpuscular Hemoglobin 31.6 pg (25-34); Mean Corpuscular Hgb Conc 33.5 g/dL (32-36); Mean Corpuscular Volume 94.4 fL (80-100); Mean Platelet Volume 10.1 fL (7.4-10.4); Monocytes # (auto) 0.57 K/uL (0.11-0.59); Monocytes % (auto) 3.5 %; Neutrophils # (auto) 14.24 K/uL (1.4-6.5); Neutrophils % (auto) 86.3 %; Platelet Count 136 K/uL (130-400); RDW Coefficient of Variation 14.6 % (11.5-14.5); RDW Standard Deviation 49.9 fL (36.4-46.3); Red Blood Count 3.73 M/uL (4.7-6.1); White Blood Count 16.49 K/uL (4.8-10.8)
[2020-12-01 08:05] LABS: INR 1.8 (0.9-1.1); Prothrombin Time 17.2 Seconds (9.0-12.0)
[2020-12-01 08:09] LABS: BUN Creatinine Ratio 21.3 (10-20); Calcium 8.8 mg/dl (8.5-10.1); Creatinine Clr Calc Pharmacy 66.6 ml/min; Est GFR (African American) 90.4 ml/min; Potassium 4.8 mmol/L (3.5-5.1)
--- NOTE | 2020-12-01 08:55 | Hospitalist Progress Note ---
Date of Service December 01, 2020 Assessment & Plan (1) Septic shock: Plan: Secondary to GNB/cellulitis. Given worsening erythema and WBC coverage broadened to daptomycin, doxycycline and zosyn due to possibility of polymicrobial infection, culture Gram stain of the bullae fluid will help guide antibiotic coverage. Lactic improved 12/01 Shock resolved Echocardiogram shows preserved ejection fraction dilated right ventricle with normal systolic function aortic sclerosis without stenosis elevated pulmonary artery pressures grade 2 diastolic dysfunction (2) Gram-negative bacteremia: Plan: sepsis resolved blood cultures show pansensitive serratia x2 species, will stop daptomycin Continue Zosyn pending further identification and sensitivities. (3) Cellulitis of leg, right: Plan: No fluid collection on CT. Elevate RLE as able. Arterial US shows calcified posterior tibialis stenosis on right Venous doppler negative for DVT (4) Pacemaker: Plan: Single-chamber ventricular pacemaker placed May 2018 for study ventricular response to atrial fibrillation (5) Hypertension: Plan: In setting of septic shock we will restart his usual lisinopril. (6) Dyslipidemia: Plan: Continue rosuvastatin 40 mg p.o. daily (7) Coronary artery disease: Plan: S/p PCI to RCA in 2009. Stable since then. Continue aspirin, rosuvastatin. TTE -no significant wall motion abnormalities except that consistent with conduction abnormality from his single-chamber pacemaker. Dilated inferior vena cava with reduced collapsibility suggests multiple hemodynamically stable will likely need diuretics. (8) Thoracic aortic dissection: Plan: s/p repair 2017 (9) Atrial fibrillation: Plan: INR supratherapeutic. Aim 2-3. Restart warfarin. PT/INR daily Rate controlled without medication. (10) Hypothyroidism (acquired): Plan: Continue levothyroxine 88 mcg p.o. daily Plan: VTE prophylaxis - INR therapeutic 4.5, hold warfarin Code - Full Disposition - transfer to PCU now off Levophed Admission and Anticipated Discharge Date Admission Date: November 29, 2020 Subjective Lower extremities improved large bulla has formed this was unroofed in the presence of wound care nurse by myself under sterile technique culture of the fluid within the bullae was undertaken Review of Systems Review of Systems: Mild distress and fatigue no headache, no visual changes no speech or swallowing issues no chest pain, pressure or palpitations no shortness of breath, cough or wheezes no abdominal pain, nausea or vomiting, diarrhea or constipation no dysuria, hematuria or frequency no focal joint pain or swelling no back pain, CVA tenderness or radicular pain Erythema to his lower extremity has improved large 2 x 4 - 5 cm bullae was present to the inside of his right lower extremity this was unroofed under sterile technique no focal signs of weakness or numbness or altered sensation no complaints of anxiety or depression.. Physical Exam Physical Exam: The patient appeared well nourished and normally developed. Vital signs as documented. Head exam is normocephalic atraumatic Neck is without JVD, thyromegaly, or carotid bruits. Lungs are clear to auscultation, no focal loss of breath sounds Cardiac exam, Rhythm is regular.. No murmurs, rubs or gallops. Abdominal exam reveals normal bowel sounds, soft non tender, no masses Extremities are nonedematous and both pedal pulses are present Neurologic exam is alert and oriented, no focal loss of strength or sensation Skin is with receding cellulitis and large bullae present which was unroofed as mentioned and cultured. Peripheral circulation appears to be intact although there was some description of posterior tibial stenosis Psychologically is without concerns for anxiety or depression Results & Data Results & Data ([facility]) Vital Signs (Past 12 Hours) Vital Signs Temp Pulse Pulse Resp BP Pulse Ox 12/01/20 08:07 97.9 F 69 19 151/83 H 95 12/01/20 04:00 97.7 F 69 16 169/94 H 95 12/01/20 00:00 72 11/30/20 22:40 98.1 F 118 H 18 160/89 H 90 PG Care Time/CCT Total # of Minutes Spent Total Time Spent with Patient: Total time spent is greater than 50% in coordination of care (as documented) at patient's floor/unit and/or counseling patient: Coding Level of Care Code 47702 Subseq Hosp Care Lvl 3 Diagnoses Septic shock A41.9; R65.21 Gram-negative bacteremia R78.81 Cellulitis of leg, right L03.115 Pacemaker Z95.0 Hypertension I10 Dyslipidemia E78.5 Coronary artery disease I25.10 Thoracic aortic dissection I71.01 Atrial fibrillation I48.91 Hypothyroidism (acquired) E03.9
[2020-12-01] MEDS: DOXYCYCLINE HYCLATE 100 MG in DEXTROSE 5% 100 ML IV SCH ×2 (09:21→21:36)
[2020-12-01] MEDS: ASPIRIN 81 MG ECTAB PO SCH (09:21)
[2020-12-01] MEDS: ROSUVASTATIN CALCIUM 20 MG TAB PO SCH (09:21)
--- NOTE | 2020-12-01 09:31 | Electrocardiogram Report ---
Test Reason : Blood Pressure : / mmHG Vent. Rate : 070 BPM Atrial Rate : 102 BPM P-R Int : 000 ms QRS Dur : 174 ms QT Int : 450 ms P-R-T Axes : 000 -64 096 degrees QTc Int : 486 ms Ventricular-paced rhythm Abnormal ECG When compared with ECG of 29-NOV-2020 08:22, Electronic ventricular pacemaker has replaced Junctional rhythm Confirmed by Terry Olson ([id number]) on 12/01/2020 9:31:09 AM Referred By: REFERRED SELF Confirmed By:Terry Olson
[2020-12-01] MEDS: DAPTOmycin 475 MG in SYRINGE 0 ML IV SCH (11:05)
[2020-12-01] MEDS: MELATONIN 3 MG TAB PO PRN (22:59)
[2020-12-02] MEDS ORDERED: MELATONIN 3 MG TAB PO ONE (01:44)
[2020-12-02] MEDS: LEVOTHYROXINE SODIUM 88 MCG TABLET PO SCH (05:56)
[2020-12-02] MEDS: PIPERACILLIN/TAZOBACTAM 3.375 GM in DEXTROSE 5% 100 ML IV SCH (05:56)
[2020-12-02] MEDS: ROSUVASTATIN CALCIUM 20 MG TAB PO SCH (07:45)
[2020-12-02] MEDS: ASPIRIN 81 MG ECTAB PO SCH (07:45)
[2020-12-02] MEDS: lisinopril 5 MG TAB PO SCH (07:45)
[2020-12-02] MEDS: DOXYCYCLINE HYCLATE 100 MG in DEXTROSE 5% 100 ML IV SCH (07:49)
[2020-12-02 08:13] LABS: Eosinophils # (auto) 0.02 K/uL (0-0.5); Eosinophils % (auto) 0.2 %; Hematocrit (blood only) 38.2 % (42-52); Hemoglobin 12.7 g/dL (14.0-18.0); Immature Granulocytes # (auto) 0.06 K/uL (0.00-0.02); Immature Granulocytes % (auto) 0.5 %; Lymphocytes # (auto) 1.27 K/uL (1.2-3.4); Lymphocytes % (auto) 9.9 %; Mean Corpuscular Hemoglobin 31.4 pg (25-34); Mean Corpuscular Hgb Conc 33.2 g/dL (32-36); Mean Corpuscular Volume 94.3 fL (80-100); Mean Platelet Volume 10.4 fL (7.4-10.4); Monocytes # (auto) 0.58 K/uL (0.11-0.59); Monocytes % (auto) 4.5 %; Neutrophils # (auto) 10.91 K/uL (1.4-6.5); Neutrophils % (auto) 84.9 %; Platelet Count 170 K/uL (130-400); RDW Coefficient of Variation 14.2 % (11.5-14.5); RDW Standard Deviation 48.8 fL (36.4-46.3); Red Blood Count 4.05 M/uL (4.7-6.1); White Blood Count 12.84 K/uL (4.8-10.8)
[2020-12-02 08:29] LABS: INR 1.7 (0.9-1.1); Prothrombin Time 16.4 Seconds (9.0-12.0)
[2020-12-02 08:43] LABS: BUN Creatinine Ratio 22.7 (10-20); Calcium 9.3 mg/dl (8.5-10.1); Creatinine Clr Calc Pharmacy 69.7 ml/min; Est GFR (African American) 92.1 ml/min; Est GFR (Non-African American) 79.5 ml/min; Potassium 4.5 mmol/L (3.5-5.1)
--- NOTE | 2020-12-02 09:45 | Hospitalist Progress Note ---
Date of Service December 02, 2020 Assessment & Plan (1) Septic shock: Plan: Secondary to GNB/cellulitis. Found to be Serratia inman sensitive, will change to rocephin, and look to Cefdinir at home once improved. Lactic improved 12/01 Shock resolved Echocardiogram shows preserved ejection fraction dilated right ventricle with normal systolic function aortic sclerosis without stenosis elevated pulmonary artery pressures grade 2 diastolic dysfunction (2) Gram-negative bacteremia: Plan: sepsis resolved blood cultures show pansensitive serratia x2 species, transition to Ceftriaxone (3) Cellulitis of leg, right: Plan: No fluid collection on CT. Elevate RLE as able. 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 restart his usual lisinopril. (6) Dyslipidemia: Plan: Continue rosuvastatin 40 mg p.o. daily (7) Coronary artery disease: Plan: S/p PCI to RCA in 2009. Stable since then. Continue aspirin, rosuvastatin. TTE -no significant wall motion abnormalities except that consistent with conduction abnormality from his single-chamber pacemaker. Dilated inferior vena cava with reduced collapsibility suggests multiple hemodynamically stable will likely need diuretics. (8) Thoracic aortic dissection: Plan: s/p repair 2017 (9) Atrial fibrillation: Plan: INR supratherapeutic. Aim 2-3. Restart warfarin. PT/INR daily Rate controlled without medication. (10) Hypothyroidism (acquired): Plan: Continue levothyroxine 88 mcg p.o. daily Plan: VTE prophylaxis - resumed warfarin Code - Full Admission and Anticipated Discharge Date Admission Date: November 29, 2020 Subjective Lower extremities improved large bulla was unroofed in the presence of wound care nurse by myself under sterile technique 12/02/20 culture of the fluid within the bullae was undertaken Review of Systems Review of Systems: Mild distress and fatigue no headache, no visual changes no speech or swallowing issues no chest pain, pressure or palpitations no shortness of breath, cough or wheezes no abdominal pain, nausea or vomiting, diarrhea or constipation no dysuria, hematuria or frequency no focal joint pain or swelling no back pain, CVA tenderness or radicular pain Erythema to his lower extremity has improved large 2 x 4 - 5 cm bullae was present to the inside of his right lower extremity this was unroofed under sterile technique no focal signs of weakness or numbness or altered sensation no complaints of anxiety or depression.. Physical Exam Physical Exam: The patient appeared well nourished and normally developed. Vital signs as documented. Head exam is normocephalic atraumatic Neck is without JVD, thyromegaly, or carotid bruits. Lungs are clear to auscultation, no focal loss of breath sounds Cardiac exam, Rhythm is regular.. No murmurs, rubs or gallops. Abdominal exam reveals normal bowel sounds, soft non tender, no masses Extremities are nonedematous and both pedal pulses are present Neurologic exam is alert and oriented, no focal loss of strength or sensation Skin is with receding cellulitis and large bullae present which was unroofed as mentioned and cultured. Peripheral circulation appears to be intact although there was some description of posterior tibial stenosis Psychologically is without concerns for anxiety or depression Results & Data Results & Data ([facility]) Vital Signs (Past 12 Hours) Vital Signs Temp Pulse Resp BP Pulse Ox 12/02/20 07:51 98.1 F 71 16 164/105 H 97 12/02/20 02:40 98.2 F 71 17 163/94 H 97 12/01/20 22:44 98.2 F 70 17 158/97 H 95 PG Care Time/CCT Total # of Minutes Spent Total Time Spent with Patient: Total time spent is greater than 50% in coordination of care (as documented) at patient's floor/unit and/or counseling patient: Coding Level of Care Code 92029 Subseq Hosp Care Lvl 2 Diagnoses Septic shock A41.9; R65.21 Gram-negative bacteremia R78.81 Cellulitis of leg, right L03.115 Pacemaker Z95.0 Hypertension I10 Dyslipidemia E78.5 Coronary artery disease I25.10 Thoracic aortic dissection I71.01 Atrial fibrillation I48.91 Hypothyroidism (acquired) E03.9
[2020-12-02] MEDS ORDERED: cefTRIAXone SODIUM 2,000 MG in DEXTROSE 5% 50 ML IV SCH (10:00)
[2020-12-02] MEDS ORDERED: WARFARIN SOD 5 MG TAB PO SCH (16:00)
[2020-12-02] MEDS ORDERED: MELATONIN 3 MG TAB PO PRN (16:47)
[2020-12-03] MEDS: LEVOTHYROXINE SODIUM 88 MCG TABLET PO SCH (06:08)
[2020-12-03 06:26] LABS: INR 1.8 (0.9-1.1); Prothrombin Time 17.8 Seconds (9.0-12.0)
[2020-12-03 06:29] LABS: Eosinophils # (auto) 0.06 K/uL (0-0.5); Eosinophils % (auto) 0.7 %; Hemoglobin 12.1 g/dL (14.0-18.0); Immature Granulocytes # (auto) 0.11 K/uL (0.00-0.02); Immature Granulocytes % (auto) 1.3 %; Lymphocytes % (auto) 16.1 %; Mean Corpuscular Hemoglobin 31.4 pg (25-34); Mean Corpuscular Hgb Conc 33.6 g/dL (32-36); Mean Corpuscular Volume 93.5 fL (80-100); Mean Platelet Volume 10.2 fL (7.4-10.4); Monocytes # (auto) 0.76 K/uL (0.11-0.59); Monocytes % (auto) 8.7 %; Neutrophils # (auto) 6.36 K/uL (1.4-6.5); Neutrophils % (auto) 73.2 %; Platelet Count 183 K/uL (130-400); RDW Coefficient of Variation 14.2 % (11.5-14.5); RDW Standard Deviation 48.4 fL (36.4-46.3); Red Blood Count 3.85 M/uL (4.7-6.1); White Blood Count 8.69 K/uL (4.8-10.8)
[2020-12-03 06:58] LABS: Calcium 8.7 mg/dl (8.5-10.1); Creatinine Clr Calc Pharmacy 72.3 ml/min; Est GFR (African American) 93.5 ml/min; Est GFR (Non-African American) 80.6 ml/min; Potassium 4.4 mmol/L (3.5-5.1)
[2020-12-03] MEDS: lisinopril 5 MG TAB PO SCH (07:37)
[2020-12-03] MEDS: ROSUVASTATIN CALCIUM 20 MG TAB PO SCH (07:37)
[2020-12-03] MEDS: ASPIRIN 81 MG ECTAB PO SCH (07:37)
[2020-12-03] MEDS ORDERED: levoFLOXacin/D5W 750 MG/150 ML BAG IV SCH (10:00)
[2020-12-03] MEDS ORDERED: WARFARIN SOD 3 MG TAB PO SCH (16:00)
--- NOTE | 2020-12-04 12:23 | Discharge Summary ---
Date of Service December 03, 2020 Admission HPI Per Admitting Provider 85 y/o M Hx hypothyroidism HTN, HLD, CAD, AF - pacer. Presents with infection of the RLE, fevers/chills and lightheadedness. The pt was gardening 3 days ago and suffered minor trauma to his RLE above the ankle. Over the next 3 days, the area became swollen, erythematous and tender. He then developed fevers and lightheadedness. The pt was hypotensive and febrile on arrival to the ER. He did not respond to an initial fluid bolus. He was placed on pressors therefore. Labs are notable for leukocytosis and an elevated lactic. An EKG was abnormal with a junctional rhythm, diffuse deep T wave inversions and CHB - when not paced. He has not had related symptoms. PMH: 1) CAD 2) HTN 3) HLD 4) AF - slow ventricular response 5) Pacer - rate-activated at 50BPM 6) Hypothyroidism 7) Thoracic aortic aneurysm Surgical: 1) Repair of ascending aortic aneurysm with arch replacement 2017 2) Pacer placement 2018 3) RCA stent 2009 Social: Does not drink or smoke. 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 [employer] Family: Noncontributory owing to pt's age Principal Diagnosis serratia marcencens bacteremia from cellulitis sepsis resolved atrial fibrillation Discharge Exam pt appears stable and still with erythema to leg Discharge Data Allergies Allergy/AdvReac Type Severity Reaction Status Date / Time No Known Allergies Allergy Mild NONE Verified 07/18/20 11:10 Consultations 11/29/20 12:56 ED Decision to Admit Stat 11/29/20 15:57 Consult Roof Fitter Routine Ordered Studies 11/29/20 10:38 CT abd pelvis IV con only Stat CT angio chest PE protocol Stat CT tib/fib RT w con Stat 11/29/20 10:43 CT head/brain wo con Stat 11/30/20 03:50 US venous doppler LE RT Urgent 11/30/20 11:09 US arterial duplex LE RT Routine Hospital Course (1) Septic shock: Secondary to GNB/cellulitis. Found to be Serratia inman sensitive, will change to rocephin, and look to Cefdinir at home once improved. Lactic improved 12/01 Shock resolved Echocardiogram shows preserved ejection fraction dilated right ventricle with normal systolic function aortic sclerosis without stenosis elevated pulmonary artery pressures grade 2 diastolic dysfunction (2) Gram-negative bacteremia: sepsis resolved blood cultures show pansensitive serratia x2 species, transition to po levaquin with appropriate attention to coumadin and dosing (3) Cellulitis of leg, right: No fluid collection on CT. Elevate RLE as able. Arterial US shows calcified posterior tibialis stenosis on right pt is healing well may have vascular eval in the future Venous doppler negative for DVT (4) Pacemaker: Single-chamber ventricular pacemaker placed May 2018 for study ventricular response to atrial fibrillation (5) Hypertension: In setting of septic shock now resolved . restart his usual lisinopril. (6) Dyslipidemia: Continue rosuvastatin 40 mg p.o. daily (7) Coronary artery disease: S/p PCI to RCA in 2009. Stable since then. Continue aspirin, rosuvastatin. TTE -no significant wall motion abnormalities except that consistent with conduction abnormality from his single-chamber pacemaker. Dilated inferior vena cava with reduced collapsibility suggests multiple hemodynamically stable will l ikely need diuretics. (8) Thoracic aortic dissection: s/p repair 2017 (9) Atrial fibrillation: INR supratherapeutic. Aim 2-3. Restart warfarin. PT/INR daily Rate controlled without medication. (10) Hypothyroidism (acquired): Continue levothyroxine 88 mcg p.o. daily Code - Full Total Time Total Time Spent Total Time Spent (In Minutes): greater than 30 minutes required to compete discharge process Discharge Plan Discharge Items Patient Disposition: Home - Self-Care Reason For Visit: SEPSIS, CELLULITIS Discharge Diagnosis: serratia marcescens leg infection sepsis resolved Condition on Discharge: Good Activity: Per Instructions section Activity Comment: resume activity but limit by leg swelling if leg swelling please elevate Non-emergency contact: Primary Care Provider and Lap Machine Tender Call non-emergency contact if: your symptoms worsen Follow-up/Referrals: Veronica Benson CRNP [Nurse Practitioner] - 12/08/20 9:50 am Steven Danielson MD [Primary Care Provider] - Diet: Regular Addtl Attending Provider Instructions: please go to Coumadin clinic tuesday 12/05 at 9 am for INR check until you see wound clinic, wash wound at least once a day with soap and water, dry thoroughly and re place dressing, elevate leg when resting or sitting. do not wear compression garment unless instructed to do so by wound clinic Pending Studies at Discharge: No Stand-Alone Forms: My [facility], Smoking Cessation Medications and DC Order Prescriptions: New warfarin 3 mg Tablet 3 mg PO DAILY@1600 Qty: 15 RF: 0 levofloxacin 750 mg tablet 750 mg PO DAILY 9 Days Qty: 9 RF: 0 Continued levothyroxine 88 mcg tablet 88 mcg PO DAILY Qty: 90 RF: 3 rosuvastatin 40 mg tablet 40 mg PO DAILY Qty: 90 RF: 3 nitroglycerin 0.4 mg tablet, sublingual 0.4 mg SL Q5M PRN (Reason: chest pain) Qty: 25 RF: 0 aspirin 81 mg tablet 81 mg PO DAILY Qty: 90 RF: 0 lisinopril 5 mg tablet 5 mg PO DAILY Qty: 90 RF: 3 diclofenac sodium 50 mg tablet,delayed release (DR/EC) 50 mg PO DAILY Qty: 90 RF: 3 Discontinued warfarin 5 mg tablet 5 mg PO DAILY Qty: 90 RF: 3 Discharge Orders: Discharge Order (Routine); Ordered 12/03/20 Ordered By: Tai Bentley Admission Data Admit Date/Time: 11/29/20 14:55 Attending Provider: Tai Bentley Admit Provider: Sriram Conte Primary Care Provider: Steven Danielson Other Providers: Sriram Conte ; Gianluca Mayfield ; Rayshawn Crowell ; López Yip ; Jameson Fitch ; Eber Villa ; Francisco Hutson ; Ronen Werner Other Interventions: Discharge Summary Assessment (RN) Last Done: 12/03/20 11:46 Coding Level of Care Code D/C DAY MANAGEMENT >30 MINS Diagnoses Septic shock A41.9; R65.21 Gram-negative bacteremia R78.81 Cellulitis of leg, right L03.115 Pacemaker Z95.0 Hypertension I10 Dyslipidemia E78.5 Coronary artery disease I25.10 Thoracic aortic dissection I71.01 Atrial fibrillation I48.91 Hypothyroidism (acquired) E03.9
== END 2020-12-03 14:45 | disposition home or self-care (01) | DRG 871 ==
LOC: ED 07:28 → SUATTDRO 14:55 → 1E 14:55 → 2S 11-30 11:10

== ENCOUNTER 2023-04-22 10:18 | Observation (INO) ==
--- NOTE | 2023-03-10 16:13 | PAT Medication Instructions ---
Medication Instructions Date of Service March 10, 2023 Home Medications Medication Instructions Recorded warfarin 3 mg tablet 3 mg PO DAILY@1600 #15 tabs 12/03/20 diclofenac sodium 50 mg 50 mg PO BID #180 tabs 06/17/22 tablet,delayed release warfarin 5 mg tablet 5 mg PO DAILY #120 tabs 09/01/22 hydrocodone 5 mg-acetaminophen 325 1 tab PO Q6H PRN pain #30 tabs 03/02/23 mg tablet aspirin 81 mg tablet 81 mg PO QAM nitroglycerin 0.4 mg sublingual tablet 0.4 mg sublingual Q5M PRN chest pain warfarin 3 mg tablet 3 mg PO DAILY@1600 diclofenac sodium 50 mg tablet,delayed release 50 mg PO BID warfarin 5 mg tablet 5 mg PO DAILY hydrocodone 5 mg-acetaminophen 325 mg tablet 1 tab PO Q6H PRN pain levothyroxine 88 mcg tablet 88 mcg PO QAM lisinopril 5 mg tablet 5 mg PO QAM rosuvastatin 40 mg tablet 40 mg PO QAM Continue as directed nitroglycerin 0.4 mg sublingual tablet 0.4 mg sublingual Q5M PRN chest pain (if needed) ASK your surgeon for instructions diclofenac sodium 50 mg tablet,delayed release 50 mg PO BID ASK your prescriber and surgeon aspirin 81 mg tablet 81 mg PO QAM warfarin 3 mg tablet 3 mg PO DAILY@1600 warfarin 5 mg tablet 5 mg PO DAILY DO NOT take the morning of surgery lisinopril 5 mg tablet 5 mg PO QAM Take morning of surgery With a small sip of water, OTHERWISE NOTHING TO EAT OR DRINK AFTER MIDNIGHT: hydrocodone 5 mg-acetaminophen 325 mg tablet 1 tab PO Q6H PRN pain (if needed) levothyroxine 88 mcg tablet 88 mcg PO QAM rosuvastatin 40 mg tablet 40 mg PO QAM Take evening before surgery hydrocodone 5 mg-acetaminophen 325 mg tablet 1 tab PO Q6H PRN pain (if needed) Other Notes If you have any questions please call us at [phone] or [phone] or [phone] or [phone]
--- NOTE | 2023-03-17 12:48 | Anesthesiology Consultation ---
Date of Service March 17, 2023 Assessment & Plan (1) Encounter for pre-operative examination: - Check coags AM DOS (warfarin instructions per surgeon/prescriber) - Infectious disease screening: Per assessment on 03/17/23: No known infectious disease contacts or current infectious disease symptoms. No noted Covid positive test result in past 90 days. - Outpatient joint assessment: Pt currently scheduled for inpatient pathway. If surgeon requests review for outpatient joint pathway, patient is not recommended candidate for outpatient joint program from anesthesia standpoint. - Pacemaker status: Medtronic. Left sided pacer. Patient scheduled for right reverse TSA. Reviewed with Dr. Willoughby. Given pacemaker is contralateral to surgery side, do not need pacer rep perioperatively from anesthesia perspective. - Patient acceptable risk for surgery pending upcoming cardiology office visit note (JEMAL, appt 04/18). Chart Review Chart Review: Patient seen in Pre Admission Testing Teaching & Discussion Pre-Anesthesia Teaching/Discussion Notes: Instructed NPO after midnight before surgery,except medications with 15 cc of water. Medication instructions provided according to the PAT guidelines. History Surgery Operation Date: 04/22/23 11:15 Proposed Procedures p Right Reverse Total Shoulder Arthroplasty - Rayshawn Magana DO Height/Weight Height: 5 ft 11 in Weight: 77 kg Allergies Allergy/AdvReac Type Severity Reaction Status Date / Time No Known Allergies Allergy Mild NONE Verified 03/10/23 09:29 Medications Home Medications Medication Instructions Recorded Confirmed Last Taken aspirin 81 mg tablet 81 mg PO QAM #90 tabs 12/12/18 03/10/23 Unknown nitroglycerin 0.4 mg sublingual 0.4 mg sublingual Q5M PRN chest 12/12/18 03/10/23 Unknown tablet pain #25 tabs warfarin 3 mg tablet 3 mg PO DAILY@1600 #15 tabs 12/03/20 03/17/23 Unknown diclofenac sodium 50 mg 50 mg PO BID #180 tabs 06/17/22 03/10/23 Unknown tablet,delayed release warfarin 5 mg tablet 5 mg PO DAILY #120 tabs 09/01/22 03/17/23 Unknown hydrocodone 5 mg-acetaminophen 325 1 tab PO Q6H PRN pain #30 tabs 03/02/23 03/10/23 Unknown mg tablet lisinopril 5 mg tablet 5 mg PO QAM 03/10/23 03/10/23 Unknown rosuvastatin 40 mg tablet 40 mg PO QAM 03/10/23 03/10/23 Unknown levothyroxine 88 mcg tablet 88 mcg PO QAM #90 tabs 03/15/23 Unknown Past Medical History Medical History Chronic anemia Hgb baseline 11-12 range per chart review History of prostate cancer 1990, s/p prostatectomy Osteoarthritis of knees, bilateral Hypothyroidism (acquired) Aneurysm of infrarenal abdominal aorta Aorto-Iliac Arterial Duplex 02/2022: Infrarenal AAA (3.5 x 3.3cm), "essentially unchanged" compared to 11/2020 per report Hypertension Dyslipidemia Pacemaker Implanted 2018, single-chamber Medtronic Follows with [facility] cardio Atrial fibrillation Taking warfarin Thoracic aortic dissection Repaired 05/2017 Coronary artery disease PCI to RCA with stent (2009) Exercise / Class Metabolic Activity III < 4 Walking/Shop/Light housework Past Family History Family History Mother Coronary heart disease Other No family history of adverse response to anesthesia Past Surgical History Surgical History S/P cardiac pacemaker procedure 05/2018, Medtronic History of colonoscopy History of prostatectomy 1990 History of cardiac cath 2009- stent x1 Status post Mohs surgery x2- nose/face History of inguinal hernia repair, bilateral Status post coronary artery stent placement 2009- right proximal History of cataract surgery R/L S/P thoracic aortic aneurysm repair 2018 ([facility]): per Dr. Abdi's note "repair of ascending aortic aneurysm and total aortic arch replacement with a 30 mm Hemashield branched graft" Past Anesthesia History No Hx of Anesthesia Complications and No Family Hx of Anesthesia Complications History of PONV No Hx of PONV and No Hx of Motion Sickness Social History Smoking Status: Former smoker Do You Dip or Chew Tobacco: No Smoking End Date: Quit 1956 (smoked in college) Hx Alcohol Use: Yes Alcohol type: wine alcohol intake frequency: holidays/special occasions only Hx Substance Use: No substance use type: does not use Review of Systems Patient denies chest pain, shortness of breath, fever, chills, cough, wheezing, palpitations. Physical Exam Vital Signs VITALS BP 122/63 P 69 TEMP WNL SP02 96%RA RESP 16 PHYSICAL Mildly decreased cervical extension range of motion. Full TMJ range of motion. TMD 4 finger breaths Mallampati Score 3 Dentition: lower right missing molar, + crowns Lungs: clear throughout to auscultation Cardiac: regular rate and rhythm, II/ systolic murmur Spine: normal Carotid arteries: negative bruit Extremities: no LE edema Lab Results Anesthesia Preop Results Results Anesthesia Widget: WBC 5.46 K/ul (4.8-10.8) 03/17/23 Hgb 11.1 g/dl (14.0-18.0) L 03/17/23 Hct 34.9 % (42.0-52.0) L 03/17/23 Plt 225 K/uL (130-400) 03/17/23 Na 140 mmol/L (136-145) 03/17/23 K 4.5 mmol/L (3.5-5.1) 03/17/23 Cl 111 mmol/L (98-107) H 03/17/23 CO2 25 mmol/L (21-32) 03/17/23 BUN 32 mg/dl (6-23) H 03/17/23 Creat 1.04 mg/dl (0.6-1.4) 03/17/23 Glucose Level 103 mg/dl (70-99(Fasting)) H 03/17/23 PT 37.4 Seconds (9.0-12.0) H 03/17/23 PTT 42.6 Seconds (21.0-31.0) H* 03/17/23 INR 3.7 (0.9-1.1) H 03/17/23 Blood Type A Positive 03/17/23 Antibody Screen NEGATIVE 03/17/23 Testing Electrocardiogram Date: 03/17/23 Ventricular-paced rhythm at 61bpm. Chest X-Ray Date: 03/17/23 FINDINGS: Median sternotomy wires are unchanged. Pacemaker is noted. Cardiomegaly is noted. The lungs are clear. No evidence of pleural effusion or pneumothorax. IMPRESSION: No acute chest disease. Echocardiogram Date: 02/12/22 EF 55-60%. No regional wall motion abnormalities. Severe concentric LVH. Mild RVD with mildly reduced RV systolic function. Severe LAD. Moderate to severe RAD. Moderate sclerosis of aortic valve without stenosis. Mild AR. Trace to mild MR. Mild to moderate TR. Mildly elevated RVSP. RVSP 31.4 mmHg. Mild aortic root dilatation. Mild ascending aortic dilatation. Other Testing Pacer check Date: 01/16/23 Battery longevity 8.3 years. BALLISTIC TECHNICIAN 99.1%. Provider comments: Singlechamber pacemaker with nearly 100% ventricular pacing. Small Rwaves. "No abnormalities in physiologic parameters identified"
--- NOTE | 2023-04-21 12:15 | History & Physical Report ---
Date of Service April 21, 2023 Assessment & Plan (1) Osteoarthritis, shoulder: We will proceed with a right reverse shoulder arthroplasty. Postoperatively he will be placed in a sling and kept overnight in the hospital for postop medical management. He plans to use [facility] upon discharge. History of Present Illness Chief Complaint: Cuff tear arthropathy right shoulder. Primary Care Provider: Vania Purdy DO Valencia is a pleasant 87-year-old male who is well-known to me. He is been dealing with chronic worsening right shoulder pain. 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 I have been giving him injections for years. We have been trying to treat this conservative. Unfortunately his symptoms are worsening. He cannot live with the shoulder the way it is. After failed extensive conservative treatment, he has elected proceed with a right reverse shoulder arthroplasty. Allergies Allergy/AdvReac Type Severity Reaction Status Date / Time No Known Allergies Allergy Mild NONE Verified 04/18/23 10:54 Home Medications Medication Instructions Recorded Confirmed Type aspirin 81 mg tablet 81 mg PO QAM #90 tabs 12/12/18 04/18/23 History nitroglycerin 0.4 mg sublingual 0.4 mg sublingual Q5M PRN chest 12/12/18 04/18/23 History tablet pain #25 tabs warfarin 3 mg tablet 3 mg PO DAILY@1600 #15 tabs 12/03/20 04/20/23 Rx diclofenac sodium 50 mg 50 mg PO BID #180 tabs 06/17/22 04/18/23 Rx tablet,delayed release warfarin 5 mg tablet 5 mg PO DAILY #120 tabs 09/01/22 04/20/23 Rx rosuvastatin 40 mg tablet 40 mg PO QAM 03/10/23 04/18/23 History levothyroxine 88 mcg tablet 88 mcg PO QAM #90 tabs 03/15/23 04/18/23 Rx lisinopril 5 mg tablet 2.5 mg PO QAM 03/20/23 04/18/23 History hydrocodone 5 mg-acetaminophen 325 1 tab PO Q6H PRN pain #30 tabs 03/29/23 04/18/23 Rx mg tablet enoxaparin 60 mg/0.6 mL 60 mg (0.6 mL) subcut Q12H #6 mL 04/18/23 04/18/23 Rx subcutaneous syringe (Lovenox) hydrocodone 5 mg-acetaminophen 325 1 tab PO Q6H PRN pain #30 tabs 04/18/23 04/18/23 Rx mg tablet Past Med/Surg History Medical History Chronic anemia Hgb baseline 11-12 range per chart review History of prostate cancer 1990, s/p prostatectomy Osteoarthritis of knees, bilateral Hypothyroidism (acquired) Aneurysm of infrarenal abdominal aorta Aorto-Iliac Arterial Duplex 02/2022: Infrarenal AAA (3.5 x 3.3cm), "essentially unchanged" compared to 11/2020 per report Hypertension Dyslipidemia Pacemaker Implanted 2018, single-chamber Medtronic Follows with [facility] cardio Atrial fibrillation Taking warfarin Thoracic aortic dissection Repaired 05/2017 Coronary artery disease PCI to RCA with stent (2009) Surgical History S/P cardiac pacemaker procedure 05/2018, Medtr[employer] History of colonoscopy History of prostatectomy 1990 History of cardiac cath 2009- stent x1 Status post Mohs surgery x2- nose/face History of inguinal hernia repair, bilateral Status post coronary artery stent placement 2009- right proximal History of cataract surgery R/L S/P thoracic aortic aneurysm repair 2018 ([facility]): per Dr. Abdi's note "repair of ascending aortic aneurysm and total aortic arch replacement with a 30 mm Hemashield branched graft" Family History Mother Coronary heart disease Other No family history of adverse response to anesthesia Social History Smoking Status: Former smoker Tobacco Type: Cigarettes Smoking End Date: Quit 1956 (smoked in college); Second Hand Exposure: No; Do You Dip or Chew Tobacco: No; Tobacco Cessation Education Requested by Patient: No Hx Alcohol Use: Yes Alcohol type: wine Alcohol Intake Frequency: 2-4 x/Month Hx Substance Use: No Preferred Language: Divehi Communication Ability: Effective Visual Impairment: Limited Hearing Ability: Normal Vehicle Assembler Required: No Beliefs That Will Affect Care: None marital status: Current Living Situation: Spouse Current Living Situation Comment: Lives with current occupational status: retired How many Children do You have: 3 Other Information That Helps Us Care for You: No Feels Safe at Home: Yes Safety Concerns: Feels Safe At This Time Diet: regular caffeine: Yes (coffee each am) during the past year weight has: decreased > 10 lbs Assistive Devices: Cane, Glasses and Hearing Aid - Right Review of Systems All systems reviewed & are unremarkable except as noted in HPI & below. Physical Exam On physical examination of the right shoulder, he only has about 30 degrees forward elevation and 30 degrees of abduction. He has weakness throughout. Is crepitus throughout range of motion.. Constitutional WD/WN, vitals as above Eyes PERRL, conjunctivae normal, anicteric sclerae ENMT external ear and nose normal, oropharynx normal Neck trachea midline, no thyromegaly Respiratory normal respiratory effort Cardiovascular RRR, no murmur, no edema Gastrointestinal (Abdomen) normal bowel sounds, soft, nontender, no hepatosplenomegaly Psychiatric A+Ox3, euthymic affect Results & Data Results & Data Laboratory Results . Diagnostic Findings X-rays of the right shoulder show severe osteoarthritis and cuff tear arthropathy with posterior glenoid wear and a possible chronic fracture of the scapula.. PG Care Time/CCT Total # of Minutes Spent Total Time Spent with Patient: Total time spent is greater than 50% in coordination of care (as documented) at patient's floor/unit and/or counseling patient: Coding Level of Care Code None Diagnoses Osteoarthritis, shoulder M19.019
[~2023-04-22 10:18] MED LIST changes: +ACETAMINOPHEN 500 MG TAB PO SCH; -ASPEC81 PO; +BUPIVACAINE 0.5 % 5 MG/1 ML PF 10ML VIAL ONE; +FAMOTIDINE 20 MG TAB PO SCH; +GABAPENTIN 300 MG CAP PO SCH; -LEVO88TA PO; -LISI5TAB3 PO; +LR 15ML/HR IV SCH; +LR 60ML/HR IV SCH; -NTRGSL/4 UT; -ROSU40TA PO; +TRANEXAMIC ACID 1,000 MG **IV Intra-op IV SCH; +TRANEXAMIC ACID 1,000 MG **IV Pre-op IV SCH; -WARF5TAB90 PO; +ceFAZolin 2000MG 2,000 MG/15 ML SYR IV SCH; +dexAMETHasone 4 MG TAB PO SCH
--- NOTE | 2023-04-22 10:43 | History & Physical Bridge Note ---
Date of Service April 22, 2023 History & Physical Bridge Note I have examined the patient, reviewed the History & Physical and in the interval since the performance of the History & Physical I have noted the following changes of clinical significance: no changes noted
[2023-04-22] MEDS ORDERED: fentaNYL citrate PF 100 MCG/2 ML VIAL IV PRN (11:24)
[2023-04-22] MEDS ORDERED: ATROPINE SULFATE 0.1 MG/ML 10ML SYR IV PRN (11:24)
[2023-04-22] MEDS ORDERED: KETOROLAC 30 MG/ML VIAL IV PRN (11:24)
[2023-04-22] MEDS ORDERED: PROMETHAZINE HCL 6.25 MG in SODIUM CHLORIDE 0.9% 50 ML IV PRN (11:24)
[2023-04-22] MEDS ORDERED: fentaNYL citrate PF 100 MCG/2 ML VIAL ONE (11:29)
[2023-04-22] MEDS ORDERED: ONDANSETRON INJ 2 MG/ML 2 ML VIAL ONE (11:29)
[2023-04-22] MEDS ORDERED: PROPOFOL IV EMULSION 10 MG/ML 20 ML VIAL IV ONE (11:29)
[2023-04-22] MEDS ORDERED: ORTHO JOINT ANESTHETIC ONE (11:44)
[2023-04-22 12:00] LABS: INR 1.1 (0.9-1.1); Partial Thromboplastin Ratio 1.1; Partial Thromboplastin Time 30 Seconds (21-31); Prothrombin Time 12.1 Seconds (9.0-12.0)
[2023-04-22] MEDS ORDERED: VASOPRESSIN 20 UNIT/ML VIAL ONE (12:30)
[2023-04-22] MEDS ORDERED: PHENYLEPHRINE HCL 10 MG/ML VIAL ONE (12:30)
[2023-04-22] MEDS: ORTHO JOINT MIX INFIL SCH ×2 (13:13→13:45)
--- NOTE | 2023-04-22 14:33 | Operative Report ---
PG Post Operative Report Pre & Post Diagnosis Operation Date: 04/22/23 12:00 Pre-Op Diagnosis: Severe degenerative joint disease of the right shoulder Post-Op Diagnosis: Severe degenerative joint disease of the right shoulder I identified the patient and participated in the time-out.: Yes Procedure Operation Date: 04/22/23 12:00 Actual Procedures p Right Shoulder Incision and Drainage with subscapularis repair and decompression of 2 separate hematomas. (Right) - Rayshawn Magana DO Surgeon Rayshawn Magana DO [employer] Rayshawn Patel PA-C Estimated Blood Loss 300 Findings Consistent with Post-Op Diagnosis Specimens Shoulder drainage which was sent to pathology. The cytology report came back basically morselized bone and cartilage cells without evidence of infection. Description of Procedure On April 22, 2023 Erik arrived at [facility] for the above procedure. He was seen in the preoperative holding area and the operative extremity identified and signed. He was given a preoperative antibiotic and a right interscalene nerve block. He is doing about the operative room and laid on table supine position. He was put under general anesthesia. He was put into the beachchair position. The right shoulder was prepped and draped in sterile fashion. A timeout was done. The patient and the operative extremity was properly identified. A deltopectoral incision was made. Dissection was taken down through the fascia. The deltopectoral interval was split. The anterior shoulder was exposed. The rotator interval was opened up and a large amount of fluid came out of the rotator interval. It appeared to be almost purulent fluid. It was difficult to tell if this was an abscess or if this was just morselized bone and cartilage cells. There must have been overall 100 cc of this fluid. This fluid was then sent down to pathology. I talked to the pathologist over the phone. He did a cytology exam on the fluid and found mostly bone and cartilage type cells without any evidence of infection. I then went below the pectoralis major. I exposed a large mass in his axilla. I then opened up this mass and was able to decompress a very large chronic hematoma. There was about 80 to 100 cc of bloody discharge that was decompressed from this hematoma. I then focused on an mass in the axilla and the posterior aspect of his shoulder. I was able to located posteriorly and through a separate incision I was able to decompress this hematoma. There was about 40 to 50 cc of blood-tinged fluid in this hematoma. Once everything was decompressed the entire shoulder joint was irrigated with 3 L of normal saline solution with pulse lavage. At this point I thought it was worth exposing the shoulder to see if a hemiarthroplasty or even a VRS reverse shoulder arthroplasty would be beneficial. The subscapularis was taken down. The shoulder joint was dislocated. While the shoulder joint was being dislocated I noticed a fracture in the greater trochanter. He is on multiple anticoagulants. At this point the bone was bleeding. Given his age and his health status, also given the amount of bone loss around his glenoid and his current anticoagulation status, I decided it was best to hold off on any implants. The shoulder was reduced. The wound was then irrigated. The subscapularis was repaired back to the lesser tuberosity with Arthrex 4.75 mm bio composite swivel lock suture anchors and fiber tapes. Was able to get a nice knotless repair of the subscapularis. Afterwards the shoulder had a better range of motion than he had before the procedure. Hemostasis was obtained meticulously. The deltopectoral interval was closed with 2-0 Vicryl suture. Skin was closed with 3-0 Vicryl and emre. He was then placed in a Silverlon dressing. He was then extubated and transferred to a hospital bed. He was taken to the postanesthesia care unit in stable condition. He tolerated the procedure well. Rayshawn Patel PA-C, was present for the entire procedure. He was critical for patient positioning, prepping, draping, retraction exposure, wound closure and application of sterile dressing. I attest to the content of the Intraoperative Record and any orders documented therein. Any exceptions are noted below.
--- NOTE | 2023-04-22 15:05 | XRay Report ---
XR shoulder RT min 2V routine HISTORY: 87 years-old Male Post shoulder surgery COMPARISON: Right shoulder surgery 01/06/2023, radiographs 12/21/2022 TECHNIQUE: 2 views of the right shoulder FINDINGS: There are apparent postoperative changes of the glenoid. Acute, comminuted mildly displaced greater t uberosity fracture demonstrates 8 mm superior lateral displacement. Expected postoperative soft tissu e swelling. Sternotomy wires are present. Fractured acromion again noted. Overlying skin emre are noted. No dislocation. IMPRESSION: Postoperative changes of the shoulder with acute, comminuted mildly displaced greater tub erosity fracture. ACT 112: Negative or not required by law. The above report was generated using voice recognition software. It may contain grammatical, syntax o r spelling errors. Electronically signed by: Timothy Loredo M.D. 04/22/2023 3:03 PM
[2023-04-22] MEDS ORDERED: NITROGLYCERIN SL 0.4 MG/TAB TAB SL PRN (15:22)
[2023-04-22] MEDS ORDERED: oxyCODONE HCL IR 5 MG TAB (IMMEDIATE RELEASE) PO PRN (15:22)
[2023-04-22] MEDS ORDERED: NALOXONE HCL 0.4 MG/1 ML VIAL/CARP IV PRN (15:22)
[2023-04-22] MEDS ORDERED: bisacodyL 10 MG SUPP PR PRN (15:22)
[2023-04-22] MEDS ORDERED: MAGNESIUM HYDROXIDE SUSP 30 ML UDC PO PRN (15:22)
[2023-04-22] MEDS ORDERED: METOCLOPRAMIDE HCL INJ 5 MG/ML 2 ML VIAL IV PRN (15:22)
[2023-04-22] MEDS ORDERED: ONDANSETRON INJ 2 MG/ML 2 ML VIAL IV PRN (15:22)
[2023-04-22] MEDS ORDERED: HYDROmorphone INJ 0.5 MG/0.5 ML SYR IV PRN (15:22)
--- NOTE | 2023-04-22 15:46 | Anesthesiology Progress Note ---
Date of Service April 22, 2023 Anesthesia Post Procedure Vital Signs Vital Signs: Temp Pulse Pulse Resp BP Pulse Ox O2 Del Method 04/22/23 15:40 36.4 C L 62 16 94/75 L 99 Room Air 04/22/23 14:50 36.3 C L 61 13 112/67 97 Room Air 04/22/23 14:40 67 17 109/68 99 Room Air 04/22/23 14:30 75 20 115/85 96 Room Air 04/22/23 14:20 36.0 C L 75 18 123/72 100 Oxymask 04/22/23 11:12 36.5 C 69 18 147/92 H 97 Room Air O2 Flow Rate 04/22/23 15:40 04/22/23 14:50 04/22/23 14:40 04/22/23 14:30 04/22/23 14:20 6 04/22/23 11:12 Transfer of Care Handoff Completed per policy Notes Mental Status: alert / awake / arousable Patient Amnestic to Procedure: Yes Nausea / Vomiting: adequately controlled Pain: adequately controlled Airway Patency, RR, SpO2: stable & adequate BP & HR: stable & adequate Hydration State: stable & adequate Anesthetic Complications: no major complications apparent
[2023-04-22] MEDS ORDERED: WARFARIN SOD 5 MG TAB PO SCH (16:00)
[2023-04-22] MEDS: SODIUM CHLORIDE 0.9% 1,000 ML IV SCH (16:47)
[2023-04-22] MEDS: ceFAZolin 2000MG 2,000 MG/15 ML SYR IV SCH (20:37)
[2023-04-22] MEDS: DOCUSATE SODIUM 100 MG CAP PO SCH (20:37)
[2023-04-22] MEDS: ACETAMINOPHEN 500 MG TAB PO SCH (20:38)
[2023-04-22] MEDS ORDERED: SENNA 8.6 MG TAB PO SCH (21:00)
[2023-04-23] MEDS: SODIUM CHLORIDE 0.9% 1,000 ML IV SCH (01:06)
[2023-04-23] MEDS: ceFAZolin 2000MG 2,000 MG/15 ML SYR IV SCH (04:18)
[2023-04-23] MEDS ORDERED: Nursing to Pharmacy Communication SCH (05:15)
[2023-04-23] MEDS: ACETAMINOPHEN 500 MG TAB PO SCH (05:41)
[2023-04-23] MEDS ORDERED: LEVOTHYROXINE SODIUM 88 MCG TABLET PO SCH (06:30)
--- NOTE | 2023-04-23 07:04 | Orthopedic Progress Note ---
Date of Service April 23, 2023 Assessment & Plan (1) Status post shoulder surgery: Overall he is doing fairly well. Significant time was spent at bedside today explaining what happened during the procedure. He is not having much shoulder pain. He will be seen by physical therapy today for ambulation and range of motion exercises. I am still awaiting an H&H on him today. As long as that comes back stable, he can be discharged home later today. He will follow-up with orthopedics in 2 weeks. Diana Valencia was seen and examined at bedside this morning. Overall is doing fairly well. Is not having much pain in the right shoulder. He was able to get some sleep last night. Has no complaints.. Review of Systems All systems reviewed & are unremarkable except as noted in HPI & below. Physical Exam On physical examination of the right shoulder, the dressing is clean and dry. He is wearing his sling as instructed. He has active motion of his hand and his wrist.. Results & Data Results & Data Laboratory Results . Diagnostic Findings . PG Care Time/CCT Total # of Minutes Spent Total Time Spent with Patient: Total time spent is greater than 50% in coordination of care (as documented) at patient's floor/unit and/or counseling patient: Coding Level of Care Code 98140 Post Operative Follow-Up Diagnoses Status post shoulder surgery Z98.890
[2023-04-23 07:10] LABS: Hematocrit (blood only) 28.3 % (42.0-52.0); Hemoglobin 9.2 g/dl (14.0-18.0)
[2023-04-23] MEDS: DOCUSATE SODIUM 100 MG CAP PO SCH (07:36)
[2023-04-23] MEDS ORDERED: dexAMETHasone 4 MG TAB PO SCH (08:00)
[2023-04-23] MEDS ORDERED: ROSUVASTATIN CALCIUM 20 MG TAB PO SCH (09:00)
[2023-04-23] MEDS ORDERED: MULTIVITAMIN TAB PO SCH (09:00)
[2023-04-23] MEDS ORDERED: ENOXAPARIN INJ 60 MG/0.6 ML SYR SQ SCH (09:00)
[2023-04-23] MEDS ORDERED: lisinopril 2.5 MG TAB PO SCH (09:00)
[2023-04-23] MEDS ORDERED: ASPIRIN 81 MG ECTAB PO SCH (09:00)
[2023-04-23] MEDS ORDERED: WARFARIN SOD 2.5 MG TAB PO SCH (16:00)
--- NOTE | 2023-04-29 14:37 | Discharge Summary ---
Date of Service April 29, 2023 Admission HPI (Per Admitting) Erik is a pleasant 87-year-old male who is well-known to me. He is been dealing with chronic worsening right shoulder pain. 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 I have been giving him injections for years. We have been trying to treat this conservative. Unfortunately his symptoms are worsening. He cannot live with the shoulder the way it is. After failed extensive conservative treatment, he has elected proceed with a right reverse shoulder arthroplasty. Admission Exam (Per Admitting) On physical examination of the right shoulder, he only has about 30 degrees forward elevation and 30 degrees of abduction. He has weakness throughout. Is crepitus throughout range of motion.. Principal Diagnosis Same as "Discharge Diagnosis" noted below under Discharge Instructions. Discharge Exam On physical examination of the right shoulder, the dressing is clean and dry. He is wearing his sling as instructed. He has active motion of his hand and his wrist.. Discharge Data Procedures Performed Operation Date: 04/22/23 12:00 Actual Procedures p Right Shoulder Incision and Drainage with subscapularis repair and decompression of two hematomas(Right) - Rayshawn Magana DO Ordered Studies 04/22/23 05:00 US - OR guided needle placemen Routine Hospital Course (1) Status post shoulder surgery: On April 22, [address] [facility] and underwent a right shoulder procedure without complication. He had a general anesthetic and a right interscalene nerve block. Postoperatively he was placed in a sling and transferred to the general orthopedic floors. His hospital course was uneventful. On postop day #1, his vital signs were stable and his pain was well-controlled. His H&H was stable. He was able to participate well with physical therapy doing ambulation and range of motion exercises. He was then discharged home. He will follow-up with orthopedics in 2 weeks. PG Care Time/CCT Total # of Minutes Spent Total Time Spent with Patient: Total time spent is greater than 50% in coordination of care (as documented) at patient's floor/unit and/or counseling patient: Discharge Plan Discharge Items Patient Disposition: Home - Self-Care Reason For Visit: Right Shoulder Degenerative Joint Disease Discharge Diagnosis: Severe osteoarthritis of the right shoulder Activity: Per Instructions section Non-emergency contact: Surgeon Call non-emergency contact if: your wound has increased redness and your wound has increased drainage Follow-up/Referrals: Vania Purdy DO [Primary Care Provider] - Diet: Regular Addtl Attending Provider Instructions: Activity and Therapy Recommendations: * If you are using [facility] then therapy will be provided at your home until they feel you have accomplished all of your goals. * If you are using [facility] then Physical Therapy will be provided until they feel you are ready to start Outpatient Physical Therapy. * If you are not using home therapy then Outpatient Physical Therapy should start about 3-5 days from your day of surgery. Therapy will last about 8-12 weeks * Wear your sling for 3 weeks, unless otherwise instructed. You may remove your sling to shower and to dress, but otherwise, you should be in your sling at all times, including while sleeping * The shoulder replacement is very stable and you can use your hand while in the sling * You were shown a series of exercises in the hospital. Do these exercises daily including the exercises you were shown in physical therapy. Medications: * Narcotic You will likely be sent home from the hospital with a prescription for the narcotic pain medication that worked best throughout your stay. * Cefadroxil -take the antibiotic twice a day for 10 days to help prevent infection. * Other medications may be prescribed for specific circumstances. If you have any questions, please call the office at . * Resume previous home medications unless otherwise instructed Dressing Care: Leave the Silverlon dressing in place for 7 days. After 7 days you may remove the dressing. If the incision is not draining then you may leave the emre open to air. If there is a little bit of drainage or if the emre are getting stuck on your clothing then cover the incision with a dry dressing. The emre will be removed at your 2 week follow-up appointment. Showering: You may shower with the Silverlon dressing in place. Do not let the shower spray hit the dressing directly. Pat the Silverlon dressing dry. If the dressing becomes wet underneath, then simply remove the dressing. Keep the incision dry until you are 7 days out from the day of surgery. After 7 days you may remove the Silverlon dressing and shower with the emre exposed. Let soapy water run over the emre and pat them dry. Do not scrub or soak the incision. Things To Watch For: * Drainage from the incision site that occurs more than one week after your surgery. * Increased redness at the incision site. * Fever above 102 degrees Fahrenheit. * Unusual chest pain or shortness of breath. * Call [facility] at with any of the above problems Follow-Up Visit: Follow-up with Dr. Magana's PA (Rayshawn Patel) 2-3 weeks after your day of surgery. He will remove your emre and answer any questions. If you have any additional questions or concerns, Dr Magana is usually in the office at the same time and will be available An appointment was probably scheduled when you signed-up for surgery in the office. If you have any questions call More detailed instructions as well as Frequently Asked Questions were provided in a folder by our office when you signed-up for surgery. Please review these instructions when you get home. If you have any further questions or concerns, please feel free to call the office at [phone] Pending Studies at Discharge: No Stand-Alone Forms: My [facility] Medications and DC Order Prescriptions: New cefadroxil 500 mg capsule 500 mg PO BID 10 Days Qty: 20 0RF Continued diclofenac sodium 50 mg tablet,delayed release (DR/EC) 50 mg PO BID Qty: 180 3RF warfarin 5 mg tablet 5 mg PO DAILY Qty: 120 3RF Protocol: Dose Management Condition: Tuesday (Week One) Dose/Route: 5 mg Instruction: 1 x 5 mg tablet Condition: Tuesday Dose/Route: 5 mg Instruction: 1 x 5 mg tablet Condition: Tuesday Dose/Route: 2.5 mg Instruction: 0.5 x 5 mg tablets Condition: Tuesday Dose/Route: 5 mg Instruction: 1 x 5 mg tablet Condition: Dose/Route: 2.5 mg Instruction: 0.5 x 5 mg tablets Condition: Tuesday Dose/Route: 2.5 mg Instruction: 0.5 x 5 mg tablets Condition: Tuesday Dose/Route: 2.5 mg Instruction: 0.5 x 5 mg tablets Condition: Tuesday (Week Two) Dose/Route: 2.5 mg Instruction: 0.5 x 5 mg tablets Condition: Tuesday Dose/Route: 2.5 mg Instruction: 0.5 x 5 mg tablets Condition: Tuesday Dose/Route: 2.5 mg Instruction: 0.5 x 5 mg tablets Condition: Tuesday Dose/Route: 5 mg Instruction: 1 x 5 mg tablet Condition: Dose/Route: 2.5 mg Instruction: 0.5 x 5 mg tablets Condition: Tuesday Dose/Route: 5 mg Instruction: 1 x 5 mg tablet Condition: Tuesday Dose/Route: 2.5 mg Instruction: 0.5 x 5 mg tablets Protocol Text: Adjustment Start Date: Tuesday04/29/23 INR Value: 2.8 INR Date: 04/29/23 Recheck Date: 05/06/23 Patient Comments: pt states takes in the am Rx Instructions: Tuesday, Tuesday, Tuesday, Tuesday levothyroxine 88 mcg tablet 88 mcg PO QAM Qty: 90 3RF hydrocodone-acetaminophen 5-325 mg tablet 1 tab PO Q6H PRN (Reason: pain) Qty: 30 0RF nitroglycerin 0.4 mg tablet, sublingual 0.4 mg SL Q5M PRN (Reason: chest pain) Qty: 25 Patient Comments: PLACE ONE TABLET UNDER THE TONGUE EVERY 5 MINUTES UP TO 3 DOSES NEEDED FOR CHEST PAIN aspirin 81 mg tablet 81 mg PO QAM Qty: 90 lisinopril 5 mg tablet 2.5 mg PO QAM rosuvastatin [Crestor] 40 mg tablet 40 mg PO QAM warfarin 3 mg tablet 2.5 mg PO DAILY@1600 Protocol: Dose Management Condition: Tuesday (Week One) Dose/Route: 5 mg Instruction: 1 x 5 mg tablet Condition: Tuesday Dose/Route: 5 mg Instruction: 1 x 5 mg tablet Condition: Tuesday Dose/Route: 2.5 mg Instruction: 0.5 x 5 mg tablets Condition: Tuesday Dose/Route: 5 mg Instruction: 1 x 5 mg tablet Condition: Dose/Route: 2.5 mg Instruction: 0.5 x 5 mg tablets Condition: Tuesday Dose/Route: 2.5 mg Instruction: 0.5 x 5 mg tablets Condition: Tuesday Dose/Route: 2.5 mg Instruction: 0.5 x 5 mg tablets Condition: Tuesday (Week Two) Dose/Route: 2.5 mg Instruction: 0.5 x 5 mg tablets Condition: Tuesday Dose/Route: 2.5 mg Instruction: 0.5 x 5 mg tablets Condition: Tuesday Dose/Route: 2.5 mg Instruction: 0.5 x 5 mg tablets Condition: Tuesday Dose/Route: 5 mg Instruction: 1 x 5 mg tablet Condition: Dose/Route: 2.5 mg Instruction: 0.5 x 5 mg tablets Condition: Tuesday Dose/Route: 5 mg Instruction: 1 x 5 mg tablet Condition: Tuesday Dose/Route: 2.5 mg Instruction: 0.5 x 5 mg tablets Protocol Text: Adjustment Start Date: Tuesday04/29/23 INR Value: 2.8 INR Date: 04/29/23 Recheck Date: 05/06/23 Rx Instructions: Tuesday, and Tuesday Discontinued enoxaparin [Lovenox] 60 mg/0.6 mL syringe 60 mg subcut DAILY No Action hydrocodone-acetaminophen 5-325 mg tablet 1 tab PO Q6H PRN (Reason: pain) Qty: 30 0RF Discharge Orders: Discharge Order (Routine); Ordered 04/23/23 Ordered By: Rayshawn Magana Admission Data Admit Date/Time: 04/22/23 12:05 Attending Provider: Rayshawn Magana Admit Provider: Rayshawn Magana Primary Care Provider: Vania Purdy Other Interventions: Discharge Summary Assessment (RN) Last Done: 04/23/23 10:19
== END 2023-04-23 12:30 | disposition home or self-care (01) ==
LOC: 3E 10:18 → ASU 10:18
DX: Z87.891 Personal history of nicotine dependence; Z79.890 Hormone replacement therapy; Z79.899 Other long term (current) drug therapy; M19.011 Primary osteoarthritis, right shoulder; Z79.01 Long term (current) use of anticoagulants; Z79.82 Long term (current) use of aspirin

== ENCOUNTER 2024-01-22 01:16 | Inpatient (IN) ==
--- NOTE | 2024-01-22 02:41 | Emergency Department Note ---
History of Present Illness General Chief complaint: Shoulder Pain Stated complaint: Arthritis, R Shoulder Pain, R Knee Pain Time Seen by Provider: 01/22/24 02:14 Source: patient and family (Son at bedside) History of Present Illness Provider complaint: Right knee and shoulder pain Onset (ago): day(s) 3 Maximum Pain Intensity: 3 88-year-old male presents emergency department with son for right knee and right shoulder pain. Patient reports his pain has been present for the last 3 days. Patient reports that he recently received a cortisone injection due to his arthritis and has been trying to do more therapy. He denies any falls or traumas. Denies any chest pain. Patient's son states he is concerned that the patient might be having difficulty breathing. Home Medications Medication Instructions Recorded Confirmed Type nitroglycerin 0.4 mg sublingual 0.4 mg sublingual Q5M PRN chest 12/12/18 08/11/23 History tablet pain #25 tabs levothyroxine 88 mcg tablet 88 mcg PO QAM #90 tabs 03/15/23 08/11/23 Rx rosuvastatin 40 mg tablet (Crestor) 40 mg PO QAM #90 tabs 06/29/23 08/11/23 Rx hydrocodone 5 mg-acetaminophen 325 1 tab PO Q6H PRN pain #20 tabs 08/03/23 08/11/23 Rx mg tablet apixaban 5 mg tablet (Eliquis) 5 mg PO BID #180 tabs 10/14/23 Rx diclofenac sodium 75 mg 75 mg PO BID PRN pain #60 tabs 12/01/23 Rx tablet,delayed release aspirin 81 mg tablet 81 mg PO .qod #90 tabs 12/12/23 History lisinopril 2.5 mg tablet 2.5 mg PO DAILY #90 tabs 12/28/23 Rx Allergies Allergy/AdvReac Type Severity Reaction Status Date / Time No Known Allergies Allergy Mild NONE Verified 08/11/23 11:34 Past Med/Surg History Problem List (Updated 01/22/24 @ 05:00 by Norberto yBnum MD) HENNA (acute kidney injury) (Acute) Status post shoulder surgery (~04/2023) Postural lightheadedness Encounter for pre-operative examination Traumatic hematoma of right shoulder Aortic root dilatation Presence of bare metal stent in right coronary artery Surgical wound, non healing Bradycardia resolved with pacemaker placement---per pt was prior to pacemaker placement (states was in the 30s) Peripheral edema Tricuspid regurgitation Mitral and aortic regurgitation Acid reflux disease (Acute) Anemia (Acute) Arteriosclerotic cardiovascular disease (Acute) H/O amaurosis fugax (Acute) Inhibited sexual excitement (Acute) Status post thoracic aortic aneurysm repair (Acute) Osteoarthritis of ankle Osteoarthritis, shoulder Atrial fibrillation Osteoarthritis of knees, bilateral regional intermodal truck driver (current) use of anticoagulants Mitral regurgitation Aortic regurgitation Hypothyroidism (acquired) Aneurysm of infrarenal abdominal aorta Aorto-Iliac Arterial Duplex 02/2022: Infrarenal AAA (3.5 x 3.3cm), "essentially unchanged" compared to 11/2020 per report Pacemaker Implanted 2018, single-chamber Medtronic Follows with [facility] cardio Hypertension Dyslipidemia Coronary artery disease PCI to RCA with stent (2009) Thoracic aortic dissection Repaired 05/2017 Medical History Chronic anemia Hgb baseline 11-12 range per chart review History of prostate cancer 1990, s/p prostatectomy Atrial fibrillation Taking warfarin Surgical History S/P cardiac pacemaker procedure 05/2018, Medtronic History of colonoscopy History of prostatectomy 1990 History of cardiac cath 2009- stent x1 Status post Mohs surgery x2- nose/face History of inguinal hernia repair, bilateral Status post coronary artery stent placement 2009- right proximal History of cataract surgery R/L S/P thoracic aortic aneurysm repair 2018 ([facility]): per Dr. Abdi's note "repair of ascending aortic aneurysm and total aortic arch replacement with a 30 mm Hemashield branched graft" Family History Mother Coronary heart disease Other No family history of adverse response to anesthesia Social History Smoking Status: Former smoker Tobacco Type: Cigars Second Hand Exposure: No; Do You Dip or Chew Tobacco: No; Hx Alcohol Use: Yes Alcohol type: wine Alcohol Intake Frequency: 2-4 x/Month Hx Substance Use: No Preferred Language: Hebrew Communication Ability: Effective Visual Impairment: Limited Hearing Ability: Normal Dog Track Kennel Manager Required: No Beliefs That Will Affect Care: None marital status: Current Living Situation: Spouse Current Living Situation Comment: Lives with current occupational status: retired How many Children do You have: 3 Feels Safe at Home: Yes Diet: regular caffeine: Yes (coffee each am) during the past year weight has: decreased > 10 lbs Assistive Devices: Cane Physical Exam Vital Signs Vital Signs - 24 hr 01/22/24 01:10 01/22/24 01:10 01/22/24 01:20 Temperature 36.4 C L Temperature Source Oral Oral Pulse Rate 86 Pulse Rate [Left] 67 Pulse Rhythm Regular Pulse Rhythm [Left] Regular Pulse Strength Normal Pulse Strength [Left] Normal Respiratory Rate 20 16 Respiratory Effort / Characteristics Non-Labored Short of Breath SOB on Exertion Non-Labored Spontaneous Respiratory Depth Normal Normal Respiratory Pattern Regular Regular Blood Pressure 104/67 Blood Pressure [Right Arm] 104/67 Blood Pressure Mean 79 Blood Pressure Mean [Right Arm] 79 Blood Pressure Position Lying Blood Pressure Position [Right Arm] Lying Pulse Oximetry 97 96 Oxygen Delivery Method Room Air Room Air Sepsis Recent Fever Within 48 Hours No Sepsis New/Unexplained Change in Mental Status No N/A Sepsis Action Taken by Nursing No Action Required No Action Required 01/22/24 01:27 01/22/24 02:31 01/22/24 04:30 Temperature Temperature Source Pulse Rate 69 61 Pulse Rate [Left] 59 L Pulse Rhythm Regular Pulse Rhythm [Left] Regular Pulse Strength Pulse Strength [Left] Normal Respiratory Rate 24 20 Respiratory Effort / Characteristics Non-Labored Spontaneous Respiratory Depth Normal Respiratory Pattern Regular Blood Pressure Blood Pressure [Right Arm] 101/58 L Blood Pressure Mean Blood Pressure Mean [Right Arm] 72 Blood Pressure Position Blood Pressure Position [Right Arm] Lying Pulse Oximetry 97 95 Oxygen Delivery Method Room Air Room Air Sepsis Recent Fever Within 48 Hours Sepsis New/Unexplained Change in Mental Status Sepsis Action Taken by Nursing Physical Exam HENT: Exam performed. - Head: Normocephalic and atraumatic. - Right Ear: External ear normal. No mastoid erythema - Left Ear: External ear normal. No mastoid erythema - Mouth/Throat: The oropharynx is clear and moist. No trismus in the jaw. No dental abscesses or uvula swelling. No oropharyngeal exudate or tonsillar abscesses. EYES: Conjunctivae and EOM are normal. Pupils are equal, round, and reactive to light. Right eye exhibits no discharge. Left eye exhibits no discharge. No scleral icterus. NECK: Normal range of motion. Neck supple. No JVD present. CV: Normal rate, regular rhythm, normal heart sounds and intact distal pulses. There is no peripheral edema. Palpable radial pulses bue. PULM/CHEST: Effort normal and breath sounds normal. No respiratory distress. No stridor. He has no wheezes. He has no rales. ABD: The abdomen is soft. There is no tenderness. There is no rebound, no guarding. MUSC/SKEL: There is no peripheral edema or deformity. Pain on palpation of the right knee and right shoulder reproducing chief complaint. Palpable DP and PT pulses bilateral lower extremities. NEURO: Motor and sensation grossly intact. Course Course 0214: The patient was evaluated in room A12B. A complete history and physical exam was performed Cardiac monitoring: An order was placed for continuous cardiac monitoring. The monitor shows a rate of 60 with paed rhythm interpreted by me Patient will be treated with Toradol for his arthritis pain. Cardiac panel sent. 0309: Vital signs stable. Labs are significant for a potassium of 5.3 sodium 131 creatinine 3.61 and BUN of 85. This is almost tripled from his last set of blood work done in October. Patient Nuys any hematuria or difficulty urinating. No dysuria. No fevers. Patient does report he has been taking excessive amounts of diclofenac for his arthritis pain. Will obtain CT of the abdomen pelvis to make sure there is no obstructive cause of his HENNA. 0457: Vital signs stable. CT of the abdomen pelvis did not show any obstructive cause of his HENNA. HENNA is most likely due to excessive NSAID usage for his arthritis. [facility]. Administered Medications Discontinued Medications Ketorolac Tromethamine (Ketorolac Tromethamine 15 Mg/Ml Vial) 15 mg IV NOW STA Stop: 01/22/24 02:34 Last Admin: 01/22/24 02:54 Dose: 15 mg Documented By: JESSICA Medical Decision Making Laboratory Data Attestation: I reviewed the patient's lab results. 01/22/24 01:54 01/22/24 01:54 Lab Results 01/22/24 01/22/24 01/22/24 Range/Units 01:54 01:54 02:42 WBC 9.09 (4.8-10.8) K/ul RBC 3.97 L (4.70-6.10) M/uL Hgb 11.9 L (14.0-18.0) g/dl Hct 36.2 L (42.0-52.0) % MCV 91.2 (80.0-100.0) fL MCH 30.0 (25.0-34.0) pg MCHC 32.9 (32.0-36.0) g/dL RDW Std Deviation 50.8 H (36.4-46.3) fL RDW Coeff of Jeannie 15.0 H (11.5-14.5) % Plt Count 100 L (130-400) K/uL MPV 11.1 (9.4-12.4) fL Immature Gran % (Auto) 1.2 % Neut % (Auto) 90.6 % Lymph % (Auto) 5.3 % [place] % (Auto) 2.4 % Eos % (Auto) 0.1 % Baso % (Auto) 0.4 % Neut # (Auto) 8.23 H (1.40-6.50) K/uL Lymph # (Auto) 0.48 L (1.20-3.40) K/uL [place] # (Auto) 0.22 (0.11-0.59) K/uL Eos # (Auto) 0.01 (0.00-0.50) K/uL Baso # (Auto) 0.04 (0.00-0.20) K/uL Immature Gran # (Auto) 0.11 (0.01-0.20) K/uL Absolute Nucleated RBC 0.02 (0.00-0.12) K/uL Nucleated RBC % (auto) 0.2 % Toxic Vacuolation 1+ Dohle Bodies 1+ Basophilic Stippling 2+ Echinocytes 2+ PT 14.6 H (9.0-12.0) Seconds INR 1.4 H (0.9-1.1) APTT 41 H (21-31) Seconds PTT Ratio 1.5 Sodium 131 L (136-145) mmol/L Potassium 5.3 H (3.5-5.1) mmol/L Chloride 101 (98-107) mmol/L Carbon Dioxide 18 L (21-32) mmol/L Anion Gap 12 H (3-11) BUN 85 H (6-23) mg/dl Creatinine 3.61 H (0.6-1.4) mg/dl Est Cr Clr Drug Dosing 15.1 ml/min Est GFR ( Amer) 16.4 ml/min Est GFR (Non-Af Amer) 14.2 ml/min BUN/Creatinine Ratio 23.5 H (10-20) Glucose 92 (70-99(Fasting)) mg/dl Calcium 8.3 L (8.6-10.3) mg/dl Troponin I High Sens 50.1 H* Cancelled (0-20) pg/ml Lipase 27 (11-82) U/L Urine Color Urine Appearance (Clear) Urine pH (4.5-7.5) Ur Specific [place] (1.000-1.030) Urine Protein (Negative) Urine Glucose (UA) (Negative) Urine Ketones (Negative) Urine Blood (Negative) Urine Nitrite (Negative) Urine Bilirubin (Negative) Urine Urobilinogen (Negative) Ur Leukocyte Esterase (Negative) Urine WBC (Auto) (0-5) /hpf Urine RBC (Auto) (0-2) /hpf U Hyaline Cast (Auto) (0-2) /lpf U Epithel Cells (Auto) (0-2) /hpf Urine Bacteria (Auto) (None Seen) Amorphous Sediment (None Prsent) Granular Casts (None Prsent) /lpf SARS-CoV-2 (PCR) NEGATIVE (Negative) Influenza Type A (PCR) Negative (Neg) Influenza Type B (PCR) Negative (Neg) RSV (RT-PCR) Negative (Neg) 01/22/24 Range/Units 03:20 WBC (4.8-10.8) K/ul RBC (4.70-6.10) M/uL Hgb (14.0-18.0) g/dl Hct (42.0-52.0) % MCV (80.0-100.0) fL MCH (25.0-34.0) pg MCHC (32.0-36.0) g/dL RDW Std Deviation (36.4-46.3) fL RDW Coeff of Jeannie (11.5-14.5) % Plt Count (130-400) K/uL MPV (9.4-12.4) fL Immature Gran % (Auto) % Neut % (Auto) % Lymph % (Auto) % [place] % (Auto) % Eos % (Auto) % Baso % (Auto) % Neut # (Auto) (1.40-6.50) K/uL Lymph # (Auto) (1.20-3.40) K/uL [place] # (Auto) (0.11-0.59) K/uL Eos # (Auto) (0.00-0.50) K/uL Baso # (Auto) (0.00-0.20) K/uL Immature Gran # (Auto) (0.01-0.20) K/uL Absolute Nucleated RBC (0.00-0.12) K/uL Nucleated RBC % (auto) % Toxic Vacuolation Dohle Bodies Basophilic Stippling Echinocytes PT (9.0-12.0) Seconds INR (0.9-1.1) APTT (21-31) Seconds PTT Ratio Sodium (136-145) mmol/L Potassium (3.5-5.1) mmol/L Chloride (98-107) mmol/L Carbon Dioxide (21-32) mmol/L Anion Gap (3-11) BUN (6-23) mg/dl Creatinine (0.6-1.4) mg/dl Est Cr Clr Drug Dosing ml/min Est GFR ( Amer) ml/min Est GFR (Non-Af Amer) ml/min BUN/Creatinine Ratio (10-20) Glucose (70-99(Fasting)) mg/dl Calcium (8.6-10.3) mg/dl Troponin I High Sens (0-20) pg/ml Lipase (11-82) U/L Urine Color Dark Yellow Urine Appearance Turbid A (Clear) Urine pH 5.0 (4.5-7.5) Ur Specific [place] 1.024 (1.000-1.030) Urine Protein 3+ H (Negative) Urine Glucose (UA) Trace H (Negative) Urine Ketones Trace H (Negative) Urine Blood Trace H (Negative) Urine Nitrite Positive A (Negative) Urine Bilirubin 1+ H (Negative) Urine Urobilinogen Negative (Negative) Ur Leukocyte Esterase 1+ H (Negative) Urine WBC (Auto) 6-10 H (0-5) /hpf Urine RBC (Auto) 6-10 H (0-2) /hpf U Hyaline Cast (Auto) >20 H (0-2) /lpf U Epithel Cells (Auto) >20 H (0-2) /hpf Urine Bacteria (Auto) None Seen (None Seen) Amorphous Sediment Present A (None Prsent) Granular Casts Present A (None Prsent) /lpf SARS-CoV-2 (PCR) (Negative) Influenza Type A (PCR) (Neg) Influenza Type B (PCR) (Neg) RSV (RT-PCR) (Neg) Imaging Data Attestation: I personally reviewed and interpreted this imaging study as follows: My Impression: Chest x-ray: Chest x-ray negative. Airway clear. No pneumothorax. No consolidation. cardiomegaly No cephalization.. No free air under the diaphragm. No fractures of the skeletal structures. Right knee x-ray: No acute fracture or dislocation Right shoulder x-ray: No acute fracture or dislocation Radiologist's Impression: Abdomen/Pelvis CT 01/22/24 03:09 Exam(s): CT ABDOMEN + PELVIS Without Contrast EXAM: CT Abdomen and Pelvis Without Intravenous Contrast CLINICAL HISTORY: Reason for exam: henna. TECHNIQUE: Axial computed tomography images of the abdomen and pelvis without intravenous contrast. Automated exposure control was utilized for the study. A dose lowering technique was utilized adhering to the principles of ALARA. COMPARISON: CT abdomen and pelvis: 11/29/2020 FINDINGS: Lung bases: Unremarkable. No mass. No consolidation. Pleural space: There are small dependent bilateral pleural effusions. Heart: There is moderate to severe cardiomegaly. Median sternotomy wires and vascular calcifications are noted. Pacing leads are partially visualized. ABDOMEN: Liver: Unremarkable. Gallbladder and bile ducts: There are few intraluminal gallstones. No pericholecystic inflammatory changes are noted. No ductal dilation. Pancreas: Unremarkable. No ductal dilation. Spleen: Unremarkable. No splenomegaly. Adrenals: Unremarkable. No mass. Kidneys and ureters: Unremarkable. No obstructing stones. No hydronephrosis. Stomach and bowel: There is a moderate volume of stool suggestive of constipation. There are scattered colonic diverticula. No free air or abscess identified. No obstruction. No mucosal thickening. PELVIS: Appendix: No findings to suggest acute appendicitis. Bladder: Unremarkable. No stones. Reproductive: Unremarkable as visualized. ABDOMEN and PELVIS: Intraperitoneal space: See above. Bones/joints: No acute fracture. No dislocation. Soft tissues: Unremarkable. Vasculature: There are scattered aortic atherosclerotic calcifications. There is an infrarenal abdominal aortic aneurysm measuring 3.8 x 3.8 cm. Previous measurements: 3.5 x 3.5 cm. There are scattered aortic and coronary artery calcifications. Lymph nodes: Unremarkable. No enlarged lymph nodes. IMPRESSION: 1. Moderate distal stool burden suggestive of constipation. 2. Cholelithiasis. 3. Colonic diverticulosis. 4. 3.8 x 3.8 cm infrarenal abdominal aortic aneurysm. Previous 2020 measurements: 3.5 x 3.5 cm. 5. No acute intra-abdominal or pelvic inflammatory process identified. No free air abscess identified. 6. Moderate to severe cardiomegaly and small dependent pleural effusions. Electronically signed by: Timo Marin MD 01/22/24 04:47 AM ECG Data Attestation: I personally reviewed and interpreted this ECG as follows: Additional Comments: Atrial fibrillation with frequent ventricular paced complexes with a rate of 63. QRS [address] elevation or ST depression. [facility] Narrative 0214: The patient was evaluated in room A12B. A complete history and physical exam was performed Cardiac monitoring: An order was placed for continuous cardiac monitoring. The monitor shows a rate of 60 with paed rhythm interpreted by me Patient will be treated with Toradol for his arthritis pain. Cardiac panel sent. 0309: Vital signs stable. Labs are significant for a potassium of 5.3 sodium 131 creatinine 3.61 and BUN of 85. This is almost tripled from his last set of blood work done in October. Patient Nuys any hematuria or difficulty urinating. No dysuria. No fevers. Patient does report he has been taking excessive amounts of diclofenac for his arthritis pain. Will obtain CT of the abdomen pelvis to make sure there is no obstructive cause of his HENNA. 0457: Vital signs stable. CT of the abdomen pelvis did not show any obstructive cause of his HENNA. HENNA is most likely due to excessive NSAID usage for his arthritis. [facility] Impression & Plan HENNA (acute kidney injury) Discharge Plan Visit Data Chief Complaint: Shoulder Pain Stated Complaint: Arthritis, R Shoulder Pain, R Knee Pain ED Provider: Norberto Bynum Discharge Problem: HENNA (acute kidney injury) Patient Disposition: Admitted As Inpatient Forms Stand Alone Forms: My [facility] Prescriptions Prescriptions: No Action levothyroxine 88 mcg tablet 88 mcg PO QAM Qty: 90 3RF rosuvastatin [Crestor] 40 mg tablet 40 mg PO QAM Qty: 90 3RF hydrocodone-acetaminophen 5-325 mg tablet 1 tab PO Q6H PRN (Reason: pain) Qty: 20 0RF Eliquis 5 mg tablet 5 mg PO BID Qty: 180 3RF diclofenac sodium 75 mg tablet,delayed release (DR/EC) 75 mg PO BID PRN (Reason: pain) Qty: 60 3RF aspirin 81 mg tablet 81 mg PO .qod Qty: 90 lisinopril 2.5 mg tablet 2.5 mg PO DAILY Qty: 90 3RF nitroglycerin 0.4 mg tablet, sublingual 0.4 mg SL Q5M PRN (Reason: chest pain) Qty: 25 Patient Comments: PLACE ONE TABLET UNDER THE TONGUE EVERY 5 MINUTES UP TO 3 DOSES NEEDED FOR CHEST PAIN Referrals Referrals: PCP,NO [Physician] -
[2024-01-22 02:51] LABS: BUN Creatinine Ratio 23.5 (10-20); Calcium 8.3 mg/dl (8.6-10.3); Creatinine Clr Calc Pharmacy 15.1 ml/min; Est GFR (African American) 16.4 ml/min; Est GFR (Non-African American) 14.2 ml/min; Potassium 5.3 mmol/L (3.5-5.1)
[2024-01-22] MEDS: KETOROLAC TROMETHAMINE 15 MG/ML VIAL IV STA (02:54)
[2024-01-22 02:57] LABS: Hematocrit (blood only) 36.2 % (42.0-52.0); Hemoglobin 11.9 g/dl (14.0-18.0); Mean Corpuscular Hgb Conc 32.9 g/dL (32.0-36.0); Mean Corpuscular Volume 91.2 fL (80.0-100.0); Mean Platelet Volume 11.1 fL (9.4-12.4); Nucleated RBC # (auto) 0.02 K/uL (0.00-0.12); Nucleated RBC % (auto) 0.2 %; Platelet Count 100 K/uL (130-400); RDW Standard Deviation 50.8 fL (36.4-46.3); Red Blood Count 3.97 M/uL (4.70-6.10); White Blood Count 9.09 K/ul (4.8-10.8)
[2024-01-22 03:03] LABS: Troponin I High Sensitivity 50.1 pg/ml (0-20)
[2024-01-22 03:10] LABS: INR 1.4 (0.9-1.1); Partial Thromboplastin Ratio 1.5; Partial Thromboplastin Time 41 Seconds (21-31); Prothrombin Time 14.6 Seconds (9.0-12.0)
[2024-01-22 03:39] LABS: Influenza A virus by PCR Negative (Neg); Influenza B virus by PCR Negative (Neg); RSV by PCR Negative (Neg); SARS CoV2 RNA(COVID-19) Ceph NEGATIVE (Negative)
[2024-01-22 03:56] LABS: Basophilic Stippling 2+; Basophils # (auto) 0.04 K/uL (0.00-0.20); Basophils % (auto) 0.4 %; Dohle Bodies 1+; Echinocytes 2+; Eosinophils # (auto) 0.01 K/uL (0.00-0.50); Eosinophils % (auto) 0.1 %; Immature Granulocytes # (auto) 0.11 K/uL (0.01-0.20); Immature Granulocytes % (auto) 1.2 %; Lymphocytes # (auto) 0.48 K/uL (1.20-3.40); Lymphocytes % (auto) 5.3 %; Monocytes # (auto) 0.22 K/uL (0.11-0.59); Monocytes % (auto) 2.4 %; Neutrophils # (auto) 8.23 K/uL (1.40-6.50); Neutrophils % (auto) 90.6 %; Toxic Vacuolation 1+
[2024-01-22 04:11] LABS: Appearance Urine Turbid (Clear); Bacteria Urine Automated None Seen (None Seen); Bilirubin Urine 1+ (Negative); Blood Urine Trace (Negative); Cast Urine Automated >20 /lpf (0-2); Color Urine Dark Yellow; Epithelial Cell Urine Auto >20 /hpf (0-2); Glucose Urine UA Trace (Negative); Ketones Urine Trace (Negative); Leukocyte Esterase Urine 1+ (Negative); Nitrite Urine Positive (Negative); Protein Urine 3+ (Negative); Specific Gravity Urine 1.024 (1.000-1.030); Urobilinogen Urine Negative (Negative)
[2024-01-22 04:20] LABS: Amorphous Sediment Urine Present (None Prsent); Granular Casts Urine Present /lpf (None Prsent)
--- NOTE | 2024-01-22 04:48 | CT Scan Report ---
Exam(s): CT ABDOMEN + PELVIS Without Contrast EXAM: CT Abdomen and Pelvis Without Intravenous Contrast CLINICAL HISTORY: Reason for exam: ignacio. TECHNIQUE: Axial computed tomography images of the abdomen and pelvis without intravenous contrast. Automated exposure control was utilized for the study. A dose lowering technique was utilized adhering to the principles of ALARA. COMPARISON: CT abdomen and pelvis: 11/29/2020 FINDINGS: Lung bases: Unremarkable. No mass. No consolidation. Pleural space: There are small dependent bilateral pleural effusions. Heart: There is moderate to severe cardiomegaly. Median sternotomy wires and vascular calcifications are noted. Pacing leads are partially visualized. ABDOMEN: Liver: Unremarkable. Gallbladder and bile ducts: There are few intraluminal gallstones. No pericholecystic inflammatory changes are noted. No ductal dilation. Pancreas: Unremarkable. No ductal dilation. Spleen: Unremarkable. No splenomegaly. Adrenals: Unremarkable. No mass. Kidneys and ureters: Unremarkable. No obstructing stones. No hydronephrosis. Stomach and bowel: There is a moderate volume of stool suggestive of constipation. There are scattered colonic diverticula. No free air or abscess identified. No obstruction. No mucosal thickening. PELVIS: Appendix: No findings to suggest acute appendicitis. Bladder: Unremarkable. No stones. Reproductive: Unremarkable as visualized. ABDOMEN and PELVIS: Intraperitoneal space: See above. Bones/joints: No acute fracture. No dislocation. Soft tissues: Unremarkable. Vasculature: There are scattered aortic atherosclerotic calcifications. There is an infrarenal abdominal aortic aneurysm measuring 3.8 x 3.8 cm. Previous measurements: 3.5 x 3.5 cm. There are scattered aortic and coronary artery calcifications. Lymph nodes: Unremarkable. No enlarged lymph nodes. IMPRESSION: 1. Moderate distal stool burden suggestive of constipation. 2. Cholelithiasis. 3. Colonic diverticulosis. 4. 3.8 x 3.8 cm infrarenal abdominal aortic aneurysm. Previous 2020 measurements: 3.5 x 3.5 cm. 5. No acute intra-abdominal or pelvic inflammatory process identified. No free air abscess identified. 6. Moderate to severe cardiomegaly and small dependent pleural effusions. Electronically signed by: Timo Marin MD 01/22/24 04:47 AM
[2024-01-22] MEDS: SODIUM CHLORIDE 0.9% 1,000 ML IV SCH ×2 (05:12→07:15)
--- NOTE | 2024-01-22 05:45 | History & Physical Report ---
Date of Service January 22, 2024 Assessment & Plan (1) IGNACIO (acute kidney injury): (2) Presence of bare metal stent in right coronary artery: (3) Mitral and aortic regurgitation: (4) Atrial fibrillation: (5) Hypertension: (6) Pacemaker: (7) Dyslipidemia: (8) Coronary artery disease: (9) Acid reflux disease: (10) History of prostate cancer: (11) Urinary tract infection: Plan Acute kidney injury- Creatinine 3.61, with base 1.11. BUN 85 with base 33 Potassium 5.3 Give a 1 L normal saline bolus then NSS at 100 mL/h x 2 L CBC with differential, chemistry profile and magnesium level every morning Hold aspirin, lisinopril, diclofenac Sepsis due to urinary tract infection- Borderline low blood pressure of 101/58. Follow following fluid bolus Follow urine culture and sensitivity Most recent UTI of 12/01/2020 with Serratia marcescens that was ceftriaxone resistant Cefepime 2 g IV every 12 hours CAD/hypertension/history of RCA bare-metal stent/mitral and aortic regurgitation/atrial fibrillation- Continue apixaban Hold aspirin and lisinopril Most recent echocardiogram 04/07/2023, with ejection fraction 55-60% Right shoulder and knee osteoarthritis pain- Acetaminophen 650 mg by mouth every 6 hours as needed for mild pain or fever Hydrocodone/acetaminophen 5/325, 1 tablet every 6 hours as needed for moderate pain History of Present Illness Chief Complaint: The patient presents to the emergency department, with his son in the room, due to concerns regarding persistent right knee and shoulder pain, despite a recent injection from Dr. Magana on 01/11/24. He also has had a bit more confused and lethargic, per his son, who helps with HPI and review of systems. His oral intake for foods has been the usual, but he has been drinking less fluids than usual. He continues to take diclofenac 1/2 pill twice a day. Primary Care Provider: Steve Abdi Jr, MD, [facility] The patient is a 88-year-old male with a past medical history including right shoulder and knee pain, aortic root dilatation, distal RCA bare-metal stent, bradycardia, peripheral edema, tricuspid retention, mitral and aortic regurgitation, GERD, history of emesis fugax, atrial fibrillation, presence of pacemaker, long-term use of anticoagulant, hypothyroidism, hypertension, dyslipidemia, CAD, and thoracic aortic dissection. The patient presents to the emergency department with persistence of right shoulder and knee pain spite of recent injection Routine laboratory performed in the ED showed acute kidney injury with creatinine 3.61, urinalysis suggestive of urinary tract infection, and patient was referred for evaluation for admission. Allergies Allergy/AdvReac Type Severity Reaction Status Date / Time No Known Allergies Allergy Mild NONE Verified 08/11/23 11:34 Home Medications Medication Instructions Recorded Confirmed Type nitroglycerin 0.4 mg sublingual 0.4 mg sublingual Q5M PRN chest 12/12/18 08/11/23 History tablet pain #25 tabs levothyroxine 88 mcg tablet 88 mcg PO QAM #90 tabs 03/15/23 08/11/23 Rx rosuvastatin 40 mg tablet (Crestor) 40 mg PO QAM #90 tabs 06/29/23 08/11/23 Rx hydrocodone 5 mg-acetaminophen 325 1 tab PO Q6H PRN pain #20 tabs 08/03/23 08/11/23 Rx mg tablet apixaban 5 mg tablet (Eliquis) 5 mg PO BID #180 tabs 10/14/23 Rx diclofenac sodium 75 mg 75 mg PO BID PRN pain #60 tabs 12/01/23 Rx tablet,delayed release aspirin 81 mg tablet 81 mg PO .qod #90 tabs 12/12/23 History lisinopril 2.5 mg tablet 2.5 mg PO DAILY #90 tabs 12/28/23 Rx Past Med/Surg History Problem List (Updated 01/22/24 @ 05:52 by Kade Clancy MD) Urinary tract infection History of prostate cancer 1990, s/p prostatectomy IGNACIO (acute kidney injury) (Acute) Status post shoulder surgery (~04/2023) Postural lightheadedness Encounter for pre-operative examination Traumatic hematoma of right shoulder Aortic root dilatation Presence of bare metal stent in right coronary artery Surgical wound, non healing Bradycardia resolved with pacemaker placement---per pt was prior to pacemaker placement (states was in the 30s) Peripheral edema Tricuspid regurgitation Mitral and aortic regurgitation Acid reflux disease (Acute) Anemia (Acute) Arteriosclerotic cardiovascular disease (Acute) H/O amaurosis fugax (Acute) Inhibited sexual excitement (Acute) Status post thoracic aortic aneurysm repair (Acute) Osteoarthritis of ankle Osteoarthritis, shoulder Atrial fibrillation Osteoarthritis of knees, bilateral detention (current) use of anticoagulants Mitral regurgitation Aortic regurgitation Hypothyroidism (acquired) Aneurysm of infrarenal abdominal aorta Aorto-Iliac Arterial Duplex 02/2022: Infrarenal AAA (3.5 x 3.3cm), "essentially unchanged" compared to 11/2020 per report Pacemaker Implanted 2018, single-chamber Medtronic Follows with [facility] cardio Hypertension Dyslipidemia Coronary artery disease PCI to RCA with stent (2009) Thoracic aortic dissection Repaired 05/2017 Medical History Chronic anemia Hgb baseline 11-12 range per chart review History of prostate cancer 1990, s/p prostatectomy Atrial fibrillation Taking warfarin Surgical History S/P cardiac pacemaker procedure 05/2018, Medtronic History of colonoscopy History of prostatectomy 1990 History of cardiac cath 2009- stent x1 Status post Mohs surgery x2- nose/face History of inguinal hernia repair, bilateral Status post coronary artery stent placement 2009- right proximal History of cataract surgery R/L S/P thoracic aortic aneurysm repair 2018 ([facility]): per Dr. Abdi's note "repair of ascending aortic aneurysm and total aortic arch replacement with a 30 mm Hemashield branched graft" Family History Mother Coronary heart disease Other No family history of adverse response to anesthesia Social History Smoking Status: Former smoker Tobacco Type: Cigars Second Hand Exposure: No; Do You Dip or Chew Tobacco: No; Hx Alcohol Use: Yes Alcohol type: wine Alcohol Intake Frequency: 2-4 x/Month Hx Substance Use: No Preferred Language: Nicaraguan Communication Ability: Effective Visual Impairment: Limited Hearing Ability: Normal Operations Administrative Assistant Required: No Beliefs That Will Affect Care: None marital status: Current Living Situation: Spouse Current Living Situation Comment: Lives with current occupational status: retired How many Children do You have: 3 Feels Safe at Home: Yes Diet: regular caffeine: Yes (coffee each am) during the past year weight has: decreased > 10 lbs Assistive Devices: Cane Review of Systems Review of Systems: The patient's son helped by the information for HPI and ROS. The patient denies chest pain, palpitations, cough, lower extremity swelling, sore throat, fevers, chills, sweats, nausea, vomiting, diarrhea , constipation, abdominal pain, pelvic pain, blood in urine or stool, dysuria, urinary frequency or urgency, loss of consciousness, rash, abnormal bruising or bleeding, focal or generalized weakness, numbness or tingling in left arm or leg, generalized arthralgias or myalgias, back or neck pain, or night sweats. The review of systems is otherwise negative other than for that already noted above, and at least 10 systems have been reviewed. Physical Exam Physical Exam: The patient is intermittently awake, lethargic, normocephalic and atraumatic, lying in bed and in no acute distress. HEENT--PERRL, EOMI, mucous membranes and oropharynx mildly dry. Neck--supple. No JVD. No bruits. Thyroid normal, trachea midline, no adenopathy. Heart--normal S1 and S2. No murmurs, rubs or gallops. Lungs--clear bilaterally, no respiratory distress, no accessory muscle use. Abdomen--normal bowel sounds and soft. Nontender. Nondistended, no hernias or masses, no organomegaly. Extremities--no cyanosis or clubbing. No edema. Dermatologic--ecchymoses on forearms and legs Neurologic--cranial nerves II through XII grossly intact. Rheumatologic--normal range of motion. Psychiatric--mildly lethargic Results & Data Results & Data Vital Signs (Past 12 Hours) Vital Signs Temp Pulse Pulse Resp BP BP Pulse Ox 01/22/24 04:30 59 L 20 101/58 L 95 01/22/24 02:31 61 24 97 01/22/24 01:27 69 01/22/24 01:10 36.4 C L 86 16 104/67 96 01/22/24 01:10 67 20 104/67 97 O2 Del Method 01/22/24 04:30 Room Air 01/22/24 02:31 Room Air 01/22/24 01:27 01/22/24 01:10 Room Air 01/22/24 01:10 Room Air Laboratory Results Laboratory Results WBC 9.09 K/ul (4.8-10.8) 01/22/24 01:54 RBC 3.97 M/uL (4.70-6.10) L 01/22/24 01:54 Hgb 11.9 g/dl (14.0-18.0) L 01/22/24 01:54 Hct 36.2 % (42.0-52.0) L 01/22/24 01:54 MCV 91.2 fL (80.0-100.0) 01/22/24 01:54 MCH 30.0 pg (25.0-34.0) 01/22/24 01:54 MCHC 32.9 g/dL (32.0-36.0) 01/22/24 01:54 RDW Std Deviation 50.8 fL (36.4-46.3) H 01/22/24 01:54 RDW Coeff of Jeannie 15.0 % (11.5-14.5) H 01/22/24 01:54 Plt Count 100 K/uL (130-400) L 01/22/24 01:54 MPV 11.1 fL (9.4-12.4) 01/22/24 01:54 Immature Gran % (Auto) 1.2 % 01/22/24 01:54 Neut % (Auto) 90.6 % 01/22/24 01:54 Lymph % (Auto) 5.3 % 01/22/24 01:54 Mcduffie % (Auto) 2.4 % 01/22/24 01:54 Eos % (Auto) 0.1 % 01/22/24 01:54 Baso % (Auto) 0.4 % 01/22/24 01:54 Neut # (Auto) 8.23 K/uL (1.40-6.50) H 01/22/24 01:54 Lymph # (Auto) 0.48 K/uL (1.20-3.40) L 01/22/24 01:54 Mcduffie # (Auto) 0.22 K/uL (0.11-0.59) 01/22/24 01:54 Eos # (Auto) 0.01 K/uL (0.00-0.50) 01/22/24 01:54 Baso # (Auto) 0.04 K/uL (0.00-0.20) 01/22/24 01:54 Immature Gran # (Auto) 0.11 K/uL (0.01-0.20) 01/22/24 01:54 Absolute Nucleated RBC 0.02 K/uL (0.00-0.12) 01/22/24 01:54 Nucleated RBC % (auto) 0.2 % 01/22/24 01:54 Toxic Vacuolation 1+ 01/22/24 01:54 Dohle Bodies 1+ 01/22/24 01:54 Basophilic Stippling 2+ 01/22/24 01:54 Echinocytes 2+ 01/22/24 01:54 PT 14.6 Seconds (9.0-12.0) H 01/22/24 01:54 INR 1.4 (0.9-1.1) H 01/22/24 01:54 APTT 41 Seconds (21-31) H 01/22/24 01:54 PTT Ratio 1.5 01/22/24 01:54 Sodium 131 mmol/L (136-145) L 01/22/24 01:54 Potassium 5.3 mmol/L (3.5-5.1) H 01/22/24 01:54 Chloride 101 mmol/L (98-107) 01/22/24 01:54 Carbon Dioxide 18 mmol/L (21-32) L 01/22/24 01:54 Anion Gap 12 (3-11) H 01/22/24 01:54 BUN 85 mg/dl (6-23) H 01/22/24 01:54 Creatinine 3.61 mg/dl (0.6-1.4) H 01/22/24 01:54 Est Cr Clr Drug Dosing 15.1 ml/min 01/22/24 01:54 Est GFR ( Amer) 16.4 ml/min 01/22/24 01:54 Est GFR (Non-Af Amer) 14.2 ml/min 01/22/24 01:54 BUN/Creatinine Ratio 23.5 (10-20) H 01/22/24 01:54 Glucose 92 mg/dl (70-99(Fasting)) 01/22/24 01:54 Calcium 8.3 mg/dl (8.6-10.3) L 01/22/24 01:54 Troponin I High Sens 63.1 pg/ml (0-20) H* D 01/22/24 04:26 Lipase 27 U/L (11-82) 01/22/24 01:54 Urine Color Dark Yellow 01/22/24 03:20 Urine Appearance Turbid (Clear) A 01/22/24 03:20 Urine pH 5.0 (4.5-7.5) 01/22/24 03:20 Ur Specific [employer] 1.024 (1.000-1.030) 01/22/24 03:20 Urine Protein 3+ (Negative) H 01/22/24 03:20 Urine Glucose (UA) Trace (Negative) H 01/22/24 03:20 Urine Ketones Trace (Negative) H 01/22/24 03:20 Urine Blood Trace (Negative) H 01/22/24 03:20 Urine Nitrite Positive (Negative) A 01/22/24 03:20 Urine Bilirubin 1+ (Negative) H 01/22/24 03:20 Urine Urobilinogen Negative (Negative) 01/22/24 03:20 Ur Leukocyte Esterase 1+ (Negative) H 01/22/24 03:20 Urine WBC (Auto) 6-10 /hpf (0-5) H 01/22/24 03:20 Urine RBC (Auto) 6-10 /hpf (0-2) H 01/22/24 03:20 U Hyaline Cast (Auto) >20 /lpf (0-2) H 01/22/24 03:20 U Epithel Cells (Auto) >20 /hpf (0-2) H 01/22/24 03:20 Urine Bacteria (Auto) None Seen (None Seen) 01/22/24 03:20 Amorphous Sediment Present (None Prsent) A 01/22/24 03:20 Granular Casts Present /lpf (None Prsent) A 01/22/24 03:20 SARS-CoV-2 (PCR) NEGATIVE (Negative) 01/22/24 02:42 Influenza Type A (PCR) Negative (Neg) 01/22/24 02:42 Influenza Type B (PCR) Negative (Neg) 01/22/24 02:42 RSV (RT-PCR) Negative (Neg) 01/22/24 02:42 Impressions Abdomen/Pelvis CT 01/22/24 03:09 Exam(s): CT ABDOMEN + PELVIS Without Contrast EXAM: CT Abdomen and Pelvis Without Intravenous Contrast CLINICAL HISTORY: Reason for exam: ignacio. TECHNIQUE: Axial computed tomography images of the abdomen and pelvis without intravenous contrast. Automated exposure control was utilized for the study. A dose lowering technique was utilized adhering to the principles of ALARA. COMPARISON: CT abdomen and pelvis: 11/29/2020 FINDINGS: Lung bases: Unremarkable. No mass. No consolidation. Pleural space: There are small dependent bilateral pleural effusions. Heart: There is moderate to severe cardiomegaly. Median sternotomy wires and vascular calcifications are noted. Pacing leads are partially visualized. ABDOMEN: Liver: Unremarkable. Gallbladder and bile ducts: There are few intraluminal gallstones. No pericholecystic inflammatory changes are noted. No ductal dilation. Pancreas: Unremarkable. No ductal dilation. Spleen: Unremarkable. No splenomegaly. Adrenals: Unremarkable. No mass. Kidneys and ureters: Unremarkable. No obstructing stones. No hydronephrosis. Stomach and bowel: There is a moderate volume of stool suggestive of constipation. There are scattered colonic diverticula. No free air or abscess identified. No obstruction. No mucosal thickening. PELVIS: Appendix: No findings to suggest acute appendicitis. Bladder: Unremarkable. No stones. Reproductive: Unremarkable as visualized. ABDOMEN and PELVIS: Intraperitoneal space: See above. Bones/joints: No acute fracture. No dislocation. Soft tissues: Unremarkable. Vasculature: There are scattered aortic atherosclerotic calcifications. There is an infrarenal abdominal aortic aneurysm measuring 3.8 x 3.8 cm. Previous measurements: 3.5 x 3.5 cm. There are scattered aortic and coronary artery calcifications. Lymph nodes: Unremarkable. No enlarged lymph nodes. IMPRESSION: 1. Moderate distal stool burden suggestive of constipation. 2. Cholelithiasis. 3. Colonic diverticulosis. 4. 3.8 x 3.8 cm infrarenal abdominal aortic aneurysm. Previous 2020 measurements: 3.5 x 3.5 cm. 5. No acute intra-abdominal or pelvic inflammatory process identified. No free air abscess identified. 6. Moderate to severe cardiomegaly and small dependent pleural effusions. Electronically signed by: Timo Marin MD 01/22/24 04:47 AM Code Status & VTE Plan Code Status Full code VTE Prophylaxis Plan VTE Prophylaxis will be ordered: Yes PG Care Time/CCT Total # of Minutes Spent Total Time Spent with Patient: Total time spent is greater than 50% in coordination of care (as documented) at patient's floor/unit and/or counseling patient: Coding Level of Care Code 53196 INT INP/OBS CARE 3/75MIN Diagnoses IGNACIO (acute kidney injury) N17.9 Presence of bare metal stent in right coronary artery Z95.5 Mitral and aortic regurgitation I08.0 Permanent atrial fibrillation I48.21 Atrial fibrillation type: permanent Hypertension I10 Pacemaker Z95.0 Dyslipidemia E78.5 Coronary artery disease I25.10 Acid reflux disease K21.9 History of prostate cancer Z85.46 Urinary tract infection N39.0 (4) Atrial fibrillation Atrial fibrillation type: permanent Qualified Code(s): I48.21 - Permanent atrial fibrillation
[2024-01-22] MEDS: CEFEPIME 20 ML IV STA (06:11)
[2024-01-22] MEDS: SODIUM CHLORIDE 0.9% 1,000 ML IV ONE ×2 (06:20→21:56)
--- NOTE | 2024-01-22 07:56 | XRay Report ---
XR shoulder RT min 2V routine CLINICAL HISTORY: R shoulder pain TECHNIQUE: 3 views of the right shoulder were obtained. Comparison: Comparison is made to shoulder radiograph 06/23/2022 FINDINGS: There is no evidence of an acute fracture. Interval healing changes of previously noted greater tuber osity fracture. Degenerative changes are seen in the glenohumeral joint. The overlying soft tissues a re unremarkable. The visualized portions of the lungs are clear. IMPRESSION: Degenerative changes without evidence of acute abnormality. ACT 112: Negative or not required by law. Electronically signed by: Antione Wong M.D. 01/22/2024 7:54 AM
--- NOTE | 2024-01-22 07:56 | XRay Report ---
XR chest 1V portable CLINICAL HISTORY: Chest pain, nonspecific TECHNIQUE: Single frontal radiograph of the chest was obtained. Comparison: Comparison is made to chest radiograph 03/17/2023 FINDINGS: Median sternotomy wires are unchanged. Cardiomegaly is noted. The lungs are clear. No evidence of ple ural effusion or pneumothorax. IMPRESSION: No acute chest disease. ACT 112: Negative or not required by law. Electronically signed by: Antione Wong M.D. 01/22/2024 7:55 AM
--- NOTE | 2024-01-22 08:02 | XRay Report ---
XR knee RT 1 or 2V routine CLINICAL HISTORY: R shoulder pain TECHNIQUE: 2 views of the right knee were obtained. Comparison: Comparison is made to tibia and fibula radiographs 04/02/2021 FINDINGS: There is no evidence of an acute fracture. Degenerative changes are seen most prominent in the medial and patellofemoral compartment. A small suprapatellar effusion is seen. Vascular calcifications are noted. IMPRESSION: Suprapatellar effusion without evidence of underlying bony injury. Severe osteoarthritic changes are seen. ACT 112: Negative or not required by law. Electronically signed by: Antione Wong M.D. 01/22/2024 8:00 AM
[2024-01-22] MEDS ORDERED: ONDANSETRON INJ 2 MG/ML 2 ML VIAL IV PRN (09:19)
[2024-01-22] MEDS ORDERED: HYDROCODONE/ACETAMOPHEN 5/325MG TAB PO PRN (09:19)
--- NOTE | 2024-01-22 09:50 | Hospitalist Progress Note ---
Date of Service January 22, 2024 Assessment & Plan (1) HENNA (acute kidney injury): (2) Presence of bare metal stent in right coronary artery: (3) Mitral and aortic regurgitation: (4) Atrial fibrillation: (5) Hypertension: (6) Pacemaker: (7) Dyslipidemia: (8) Coronary artery disease: (9) Acid reflux disease: (10) History of prostate cancer: (11) Urinary tract infection: Plan Acute kidney injury- Creatinine 3.61 on admission, baseline 1.11. UA significant for granular casts - likely ATN Potassium 5.3 Continue gentle fluid resuscitation NSS at 80 mL/h x 2 L CBC with differential, chemistry profile and magnesium level every morning Hold aspirin, lisinopril, diclofenac ?UTI: Most recent UTI of 12/01/2020 with Serratia marcescens that was ceftriaxone resistant Suspect UA features more so a function of concentration rather than truly being infectious - given absence of fever, WBC count elevation, abx discontinued. CAD/hypertension/history of RCA bare-metal stent/mitral and aortic regurgitation/atrial fibrillation- Continue apixaban Hold aspirin and lisinopril Most recent echocardiogram 04/07/2023, with ejection fraction 55-60% Right shoulder and knee osteoarthritis pain- Acetaminophen 650 mg by mouth every 6 hours as needed for mild pain or fever Hydrocodone/acetaminophen 5/325, 1 tablet every 6 hours as needed for moderate pain Diet: HH VTE ppx: Eliquis Admission and Anticipated Discharge Date Admission Date: January 22, 2024 Supervising Physician Co-Signing Physician Notes I personally examined the patient and verified all stauffer points of history and exam, discussed case, and agree with decision making with Dr Ellis No meaningful HPI review of systems. Somewhat tachypneic. Updated son to the best my ability and to his satisfaction. Answered all questions. Lungs clear, no hypoxia, mildly tachypneic ARF/ATNseems to be due to poor p.o. intake, NSAIDs, lisinopril. Mild hyperkalemiaslightly worsening now. EKG, serial basic metabolic panels. Suspect tachypnea is due to acidosis rather than lung pathology given clear lungs clear chest x-ray, and yet at the same time given that he is in renal failure and fairly oliguric, repeat chest x-ray just to ensure that it is not tachypnea from very mild pulmonary edemaagain doubt this is the case. Isotonic bicarb drip given his acidosis is worsening. With the hyperkalemia and oliguriawill ask nephrology to be aware of him in case dialysis is neededhopefully will not be. Updated son. Discussed delirium as well. He expressed great understanding. Subjective Pt seen at bedside this morning, oriented to self but not place or time. Notes urinary frequency but denies dysuria. Denies fever/chills. Denies SOB, CP. Review of Systems Review of Systems: as per HPI Physical Exam Physical Exam: General: AOx1. No acute distress Cardiac: Regular rate and rhythm, no murmurs appreciated Respiratory: Lungs clear to auscultation bilaterally, mild accessory muscle use Abdominal: Soft, non-tender, non-distended. Bowel sounds present. Results & Data Results & Data Vital Signs (Past 12 Hours) Vital Signs Temp Pulse Pulse Resp BP BP Pulse Ox 01/22/24 09:46 55 L 01/22/24 08:00 60 18 113/74 96 01/22/24 06:00 64 20 99/64 L 96 01/22/24 05:38 63 01/22/24 04:30 59 L 20 101/58 L 95 01/22/24 02:31 61 24 97 01/22/24 01:27 69 01/22/24 01:10 36.4 C L 86 16 104/67 96 01/22/24 01:10 67 20 104/67 97 O2 Del Method 01/22/24 09:46 01/22/24 08:00 Room Air 01/22/24 06:00 Room Air 01/22/24 05:38 01/22/24 04:30 Room Air 01/22/24 02:31 Room Air 01/22/24 01:27 01/22/24 01:10 Room Air 01/22/24 01:10 Room Air Resident Activity Tracking Resident Involvement: Resident Care Provided Care Provided: Adult Hospital Medicine (4) Atrial fibrillation Atrial fibrillation type: permanent Qualified Code(s): I48.21 - Permanent atrial fibrillation
[2024-01-22] MEDS: ACETAMINOPHEN 325 MG TAB PO PRN (09:54)
[2024-01-22] MEDS: APIXABAN 2.5 MG TAB PO SCH (10:24)
[2024-01-22] MEDS: LEVOTHYROXINE SODIUM 88 MCG TABLET PO SCH (10:24)
[2024-01-22] MEDS: ROSUVASTATIN CALCIUM 20 MG TAB PO SCH (10:24)
[2024-01-22] MEDS ORDERED: CEFEPIME 1,000 MG in SYRINGE 0 ML IV SCH (18:00)
[2024-01-22] MEDS: LACTATED RINGER'S 1,000 ML IV SCH (18:25)
[2024-01-22 18:30] LABS: Base Excess VBG -10.2 mEq/L; HCO3 VBG 16 mmol/L; Oxygen Saturation VBG < 60.0 %; PCO2 VBG 33 mmHg (38-50); PO2 VBG 26 mmHg; pH VBG 7.28 (7.36-7.41)
[2024-01-22 18:53] LABS: BUN Creatinine Ratio 21.3 (10-20); Creatinine Clr Calc Pharmacy 13.4 ml/min; Est GFR (African American) 13.4 ml/min; Est GFR (Non-African American) 11.6 ml/min; Potassium 6.1 mmol/L (3.5-5.1)
[2024-01-22] MEDS ORDERED: Nursing to Pharmacy Communication SCH (20:00)
[2024-01-22] MEDS: SODIUM BICARBONATE 8.4% 150 MEQ in WATER, STERILE 1,000 ML IV SCH (20:20)
--- NOTE | 2024-01-22 21:19 | Communication Note ---
Date of Service: January 22, 2024 Notified by nursing of concern for decreased responsiveness/tachypnea at approx 2000. Saw pt at bedside, minimally responsive- did open eyes and was moving extremities. Not answering questions, minimally following commands. On exam heart with RRR, lungs clear to auscultation, swelling right LE and calf tenderness. HENNA- likely ATN, diclofenac/lisinopril on home med lsit-> on hold. Received Toradol in the ED prior to admission. Labs/CXR/EKG from 1800 reviewed-> acidosis on VBG. On bicarb gtt. K=6.1 with creatinine=4.2. Unable to tolerate PO-> made NPO. Will give calcium gluconate, insulin/dextrose for hyperkalemia. Start heparin gtt, as unable to take Eliquis. Continue with q4 BMP, nephrology consulted. Overall appears dry on exam, will give 1L fluid bolus. Venous Doppler right LE pending. Re-evaluated pt at approx 2300- still with tachypnea, largely unchanged from prior. Repeat K= 5.6, creatinine= 4.5. Continue with q4 BMP. Tolerated fluid well, no signs of overload, still dry on exam will give an additional 500ml fluid bolus.
[2024-01-22] MEDS: SODIUM ZIRCONIUM CYCLOSILICATE 10 GM PACKET PO SCH (21:30)
[2024-01-22] MEDS: DEXTROSE 50% 50 ML SYRINGE IV STA (21:40)
[2024-01-22] MEDS: INSULIN HUMAN REGULAR PER UNIT 10 UNITS in SYRINGE 9.9 ML IV STA (21:42)
[2024-01-22] MEDS: CALCIUM GLUCONATE 1,000 MG/60 ML BAG IV STA (21:44)
[2024-01-22] MEDS: HEPARIN SODIUM/DEXTROSE 25,000 UNITS/500 ML BAG IV SCH (22:30)
[2024-01-22] MEDS: Heparin IV Adult Wt-Based Low-Dose *NO* INITIAL Bolus Protocol IV STA (22:30)
[2024-01-22 23:04] LABS: BUN Creatinine Ratio 20.8 (10-20); Calcium 7.7 mg/dl (8.6-10.3); Creatinine Clr Calc Pharmacy 12.6 ml/min; Est GFR (African American) 12.4 ml/min; Est GFR (Non-African American) 10.7 ml/min; Potassium 5.6 mmol/L (3.5-5.1)
[2024-01-23] MEDS: SODIUM CHLORIDE 0.9% 500 ML IV ONE (03:01)
[2024-01-23 05:18] LABS: Albumin Globulin Ratio 1.1 (0.9-2); Albumin Level 2.7 gm/dl (3.4-5.0); BUN Creatinine Ratio 21.2 (10-20); Bilirubin,Total 1.7 mg/dl (0.2-1.0); Calcium 7.4 mg/dl (8.6-10.3); Creatinine Clr Calc Pharmacy 12.5 ml/min; Est GFR (African American) 12.3 ml/min; Est GFR (Non-African American) 10.6 ml/min; Globulin 2.5 gm/dl (2.5-4.0); Potassium 6.4 mmol/L (3.5-5.1); Total Protein 5.2 gm/dl (6.0-8.3)
[2024-01-23 05:26] LABS: ANTI-Xa, UFH(UnfractionatedHep > 1.50 IU/ml (0.3-0.7)
[2024-01-23 05:28] LABS: Hematocrit (blood only) 34.7 % (42.0-52.0); Hemoglobin 11.6 g/dl (14.0-18.0); Mean Corpuscular Hemoglobin 29.9 pg (25.0-34.0); Mean Corpuscular Hgb Conc 33.4 g/dL (32.0-36.0); Mean Corpuscular Volume 89.4 fL (80.0-100.0); Mean Platelet Volume 12.2 fL (9.4-12.4); Platelet Count 71 K/uL (130-400); RDW Coefficient of Variation 15.5 % (11.5-14.5); RDW Standard Deviation 50.4 fL (36.4-46.3); Red Blood Count 3.88 M/uL (4.70-6.10); White Blood Count 8.75 K/ul (4.8-10.8)
[2024-01-23 05:55] LABS: Basophils # (auto) 0.06 K/uL (0.00-0.20); Basophils % (auto) 0.7 %; Dohle Bodies 1+; Echinocytes 2+; Eosinophils # (auto) 0.38 K/uL (0.00-0.50); Eosinophils % (auto) 4.3 %; Hypogranular Neutrophils 1+; Immature Granulocytes # (auto) 0.08 K/uL (0.01-0.20); Immature Granulocytes % (auto) 0.9 %; Lymphocytes # (auto) 0.65 K/uL (1.20-3.40); Lymphocytes % (auto) 7.4 %; Monocytes # (auto) 0.19 K/uL (0.11-0.59); Monocytes % (auto) 2.2 %; Neutrophils # (auto) 7.39 K/uL (1.40-6.50); Neutrophils % (auto) 84.5 %; Polychromasia 1+; Toxic Vacuolation 1+
[2024-01-23] MEDS: DEXTROSE 50% 50 ML SYRINGE IV STA ×2 (05:56→09:57)
[2024-01-23] MEDS: INSULIN HUMAN REGULAR PER UNIT 10 UNITS in SYRINGE 9.9 ML IV STA (05:57)
[2024-01-23] MEDS: CALCIUM GLUCONATE 1,000 MG/60 ML BAG IV STA ×2 (05:57→09:58)
--- NOTE | 2024-01-23 06:38 | XRay Report ---
XR chest 1V portable HISTORY: 88 years-old Male Tacypnea COMPARISON: Chest radiograph of same day at 2:38 AM TECHNIQUE: AP view chest FINDINGS: Cardiac silhouette is enlarged. Left subclavian pacer. Median sternotomy. No pneumothorax. Pulmonary vascular congestion with mild left basilar opacities. Degenerative changes of the shoulders and spine . Small pleural effusions. IMPRESSION: 1. Cardiomegaly with pulmonary vascular congestion. 2. Small pleural effusions with mild left basilar predominant atelectasis. ACT 112: Negative or not required by law. The above report was generated using voice recognition software. It may contain grammatical, syntax o r spelling errors. Electronically signed by: Timothy Loredo M.D. 01/23/2024 6:36 AM
[2024-01-23 06:57] LABS: Base Excess VBG -10.7 mEq/L; HCO3 VBG 14 mmol/L; Oxygen Saturation VBG 61.5 %; PCO2 VBG 27 mmHg (38-50); PO2 VBG 36 mmHg; pH VBG 7.32 (7.36-7.41)
[2024-01-23 07:42] LABS: ANTI-Xa, UFH(UnfractionatedHep > 1.50 IU/ml (0.3-0.7)
[2024-01-23 08:49] LABS: Albumin Level 2.6 gm/dl (3.4-5.0); BUN Creatinine Ratio 20.6 (10-20); Bilirubin,Total 1.7 mg/dl (0.2-1.0); Calcium 7.5 mg/dl (8.6-10.3); Est GFR (African American) 11.8 ml/min; Est GFR (Non-African American) 10.1 ml/min; Globulin 2.7 gm/dl (2.5-4.0); Potassium 6.3 mmol/L (3.5-5.1); Total Protein 5.3 gm/dl (6.0-8.3); Troponin I High Sensitivity 126.4 pg/ml (0-20)
--- NOTE | 2024-01-23 08:51 | XRay Report ---
XR chest 1V portable HISTORY: 88 years-old Male labored breathing acute shortness of breath COMPARISON: 01/22/2024 TECHNIQUE: AP view the chest FINDINGS: Cardiac silhouette is enlarged. Left subclavian pacer. Median sternotomy. No pneumothorax. Pulmonary vascular congestion with mild left basilar opacities, unchanged. Degenerative changes of the shoulder s and spine. Small pleural effusions. IMPRESSION: 1. Cardiomegaly with pulmonary vascular congestion. 2. Small pleural effusions with mild left basilar predominant atelectasis. ACT 112: Negative or not required by law. The above report was generated using voice recognition software. It may contain grammatical, syntax o r spelling errors. Electronically signed by: Timothy Loredo M.D. 01/23/2024 8:49 AM
[2024-01-23] MEDS: CEFEPIME 1,000 MG in SYRINGE 0 ML IV SCH (09:04)
[2024-01-23] MEDS ORDERED: INSULIN HUMAN REGULAR SC ONE (09:13)
--- NOTE | 2024-01-23 09:50 | Ultrasound Report ---
RENAL ULTRASOUND CLINICAL HISTORY: Acute kidney injury. COMPARISON STUDY: CT of the abdomen and pelvis January 22, 2024. TECHNIQUE: Sonography of the kidneys and the urinary bladder was performed. FINDINGS: The right kidney measures 11 cm in maximal dimension and the left measures 10.3 cm. There i s no hydronephrosis. A 1.7 cm anechoic right upper pole renal lesion represents a cyst. Left kidney i s partially obscured. There is mild bilateral renal cortical thinning. A Harrison balloon within the salvador dder is noted. IMPRESSION: No hydronephrosis. ACT 112: Negative or not required by law. Electronically signed by: Luis Ibarra M.D. 01/23/2024 9:49 AM
--- NOTE | 2024-01-23 09:55 | Ultrasound Report ---
US venous doppler LE RT HISTORY: 88 years-old Male r/o DVT acute pain and swelling of the right lower leg COMPARISON: 11/30/2020 TECHNIQUE: Multiple real-time sonographic images of the right lower extremity deep venous structures were obtained assessing grayscale appearance, color and spectral flow. FINDINGS: Normal flow, compressibility, phasicity and augmentation. IMPRESSION: No sonographic evidence of deep venous thrombosis. ACT 112: Negative or not required by law. The above report was generated using voice recognition software. It may contain grammatical, syntax o r spelling errors. Electronically signed by: Timothy Loredo M.D. 01/23/2024 9:53 AM
[2024-01-23] MEDS: SODIUM BICARBONATE 8.4% 150 MEQ in WATER, STERILE 1,000 ML IV SCH (09:57)
[2024-01-23] MEDS: INSULIN HUMAN REGULAR PER UNIT 10 UNITS in SYRINGE 9.9 ML IV ONE (09:58)
[2024-01-23] MEDS ORDERED: SODIUM CHLORIDE 0.9% 1,000 ML IV PRN (10:04)
--- NOTE | 2024-01-23 11:00 | Critical Care Consultation ---
Date of Consultation January 23, 2024 Assessment & Plan (1) HENNA (acute kidney injury): (2) Thrombocytopenia: (3) Coagulopathy: Plan Impression: 88-year-old male admitted with acute renal failure and hyperkalemia as well as progressive acidosis unresponsive to medical interventions now requiring dialysis. We are consulted for placement of a temporary HD line. Recommendations: 1. Risks and benefits were discussed with the patient's son including increased risk of bleeding, vascular injury, need for additional procedures, pneumothorax, as well as infection. He understands the risks and is agreeable to proceed. Consent was signed and verified. If a more permanent access is needed, vascular surgery will need to be consulted for placement of a tunneled line. 2. I will proceed with ultrasound-guided temporary HD line placement and additional management per nephrology. 3. Patient's son asks multiple questions regarding code directives. I think it is appropriate to address. He is not sure his father would want to proceed with aggressive interventions. It certainly would be appropriate to address CPR or mechanical ventilation in this patient as I think it would be unlikely to improve his overall quality of life. Discussions per primary service. Patient is critically ill with multiorgan system dysfunction/failure. A total of 45 minutes in critical care time exclusive of procedures was spent in evaluation management coordination of care for this patient including end-of-life issues Will sign off. Feel free to contact us with questions or concerns. History of Present Illness Attending Physician: Luanne Sorensen MD History of Present Illness Asked by nephrology to assist in placement of a temporary hemodialysis catheter in this patient admitted with multiple medical issues and acute renal failure with progressive acidemia and hyperkalemia refractory to medical intervention. History is obtained from discussion with nephrology as well as review the electronic medical record. The patient is obtunded and unable to provide any history. The patient is an 88-year-old male with an extensive medical history who p resented to the emergency room 01/22/2024 with complaints of knee and shoulder pain as well as lethargy and confusion. He has a history of atrial fibrillation and pacemaker and is anticoagulated. He was found to have acute renal failure with a creatinine of 3.6. He had refractory hyperkalemia and due to altered mental status has been unable to tolerate medical interventions. He has been hemodynamically stable. He was initially anticoagulated on apixaban which was held on admission and he was placed on heparin which was discontinued at 7:00 this morning. He has low platelets and significant petechiae throughout. I discussed with the patient's son at bedside risks of a temporary dialysis catheter especially given the patient's thrombocytopenia, use of heparin, recent use of apixaban, renal failure, potential uremia, and potential dysfunctional platelets. He understands the risks and benefits but is agreeable to placement of a temporary dialysis line. Allergies Allergy/AdvReac Type Severity Reaction Status Date / Time No Known Allergies Allergy Mild NONE Verified 08/11/23 11:34 Home Medications Medication Instructions Recorded Confirmed Type nitroglycerin 0.4 mg sublingual 0.4 mg sublingual Q5M PRN chest 12/12/18 08/11/23 History tablet pain #25 tabs levothyroxine 88 mcg tablet 88 mcg PO QAM #90 tabs 03/15/23 08/11/23 Rx rosuvastatin 40 mg tablet (Crestor) 40 mg PO QAM #90 tabs 06/29/23 08/11/23 Rx hydrocodone 5 mg-acetaminophen 325 1 tab PO Q6H PRN pain #20 tabs 08/03/23 08/11/23 Rx mg tablet apixaban 5 mg tablet (Eliquis) 5 mg PO BID #180 tabs 10/14/23 Rx diclofenac sodium 75 mg 75 mg PO BID PRN pain #60 tabs 12/01/23 Rx tablet,delayed release aspirin 81 mg tablet 81 mg PO .qod #90 tabs 12/12/23 History lisinopril 2.5 mg tablet 2.5 mg PO DAILY #90 tabs 12/28/23 Rx Patient History Medical History Chronic anemia Hgb baseline 11-12 range per chart review History of prostate cancer 1990, s/p prostatectomy Atrial fibrillation Taking warfarin Surgical History S/P cardiac pacemaker procedure 05/2018, [employer] History of colonoscopy History of prostatectomy 1990 History of cardiac cath 2009- stent x1 Status post Mohs surgery x2- nose/face History of inguinal hernia repair, bilateral Status post coronary artery stent placement 2009- right proximal History of cataract surgery R/L S/P thoracic aortic aneurysm repair 2018 ([facility]): per Dr. Abdi's note "repair of ascending aortic aneurysm and total aortic arch replacement with a 30 mm Hemashield branched graft" Family History Mother Coronary heart disease Other No family history of adverse response to anesthesia Social History Smoking Status: Never smoker Tobacco Type: Cigars Second Hand Exposure: No; Do You Dip or Chew Tobacco: No; Hx Alcohol Use: Yes Alcohol type: wine Alcohol Intake Frequency: 2-4 x/Month Hx Substance Use: No Preferred Language: Swedish Communication Ability: Effective Communication Ability Comment: unable to receive education at this time due to admitting condition Visual Impairment: Limited Hearing Ability: Normal See Supervisor Required: No Beliefs That Will Affect Care: None marital status: Current Living Situation: Alone Current Living Situation Comment: Lives with current occupational status: retired How many Children do You have: 3 Feels Safe at Home: Yes Diet: regular caffeine: Yes (coffee each am) during the past year weight has: decreased > 10 lbs Assistive Devices: Cane and Glasses Review of Systems Review of Systems: Unobtainable due to reduced consciousness Physical Exam Constitutional: + altered mental status and + frail appe aring Neck: trachea midline, no thyromegaly Respiratory: + tachypneic; no respiratory distress an d no labored breathing Auscultation: + rhonchi Cardiovascular: RRR, no murmur, no edema Gastrointestinal (Abdomen): normal bowel sounds, soft, nontender, no hepatosplenomegaly Musculoskeletal: Extremities: extremities normal to inspection Skin: no rashes, warm and dry Lymphatic: no cervical lymphadenopathy Results & Data Results & Data Vital Signs (Past 12 Hours) Vital Signs Temp Pulse Resp BP Pulse Ox O2 Del Method 01/23/24 07:53 36.4 C L 68 24 122/69 94 Room Air 01/23/24 03:33 129/74 01/23/24 02:53 36.7 C 60 32 H 94/61 L 97 Room Air 01/22/24 23:51 36.5 C 68 26 H 115/67 97 Room Air Critical Care Results & Data Vital Signs (Past 12 Hours) Vital Signs Temp Pulse Resp BP Pulse Ox O2 Del Method 01/23/24 07:53 36.4 C L 68 24 122/69 94 Room Air 01/23/24 03:33 129/74 01/23/24 02:53 36.7 C 60 32 H 94/61 L 97 Room Air 01/22/24 23:51 36.5 C 68 26 H 115/67 97 Room Air Lab & Micro Results (Past 24 Hours) RBC 3.88 M/uL (4.70-6.10) L 01/23/24 WBC 8.75 K/ul (4.8-10.8) 01/23/24 Hgb 11.6 g/dl (14.0-18.0) L 01/23/24 Hct 34.7 % (42.0-52.0) L 01/23/24 MCV 89.4 fL (80.0-100.0) 01/23/24 MCH 29.9 pg (25.0-34.0) 01/23/24 MCHC 33.4 g/dL (32.0-36.0) 01/23/24 RDW Standard Deviation 50.4 fL (36.4-46.3) H 01/23/24 RDW Coefficient of Variation 15.5 % (11.5-14.5) H 01/23/24 Plt Count 71 K/uL (130-400) L 01/23/24 MPV 12.2 fL (9.4-12.4) 01/23/24 Neutrophils (%) (Auto) 84.5 % 01/23/24 Lymphocytes (%) (Auto) 7.4 % 01/23/24 Monocytes # (Auto) 0.19 K/uL (0.11-0.59) 01/23/24 Eosinophils # (Auto) 0.38 K/uL (0.00-0.50) 01/23/24 Immature Granulocyte % (Auto) 0.9 % 01/23/24 Neutrophils # (Auto) 7.39 K/uL (1.40-6.50) H 01/23/24 Lymphocytes # (Auto) 0.65 K/uL (1.20-3.40) L 01/23/24 Monocytes # (Auto) 0.19 K/uL (0.11-0.59) 01/23/24 Eosinophils # (Auto) 0.38 K/uL (0.00-0.50) 01/23/24 Basophils # (Auto) 0.06 K/uL (0.00-0.20) 01/23/24 Immature Granulocyte # (Auto) 0.08 K/uL (0.01-0.20) 4 Hypogranular Neutrophils 1+ 01/23/24 Polychromasia 1+ 01/23/24 Echinocytes 2+ 01/23/24 Toxic Vacuolation 1+ 01/23/24 Dohle Bodies 1+ 01/23/24 Na 134 mmol/L (136-145) L 01/23/24 K 6.3 mmol/L (3.5-5.1) H* 01/23/24 Cl 103 mmol/L (98-107) 01/23/24 CO2 18 mmol/L (21-32) L 01/23/24 Anion Gap 13 (3-11) H 01/23/24 BUN 98 mg/dl (6-23) H 01/23/24 Creatinine 4.76 mg/dl (0.6-1.4) H* 01/23/24 Estimated GFR ( Amer) 11.8 ml/min 01/23/24 Estimated GFR (Non-Af Amer) 10.1 ml/min 01/23/24 BUN/Creatinine Ratio 20.6 (10-20) H 01/23/24 Glu 69 mg/dl (70-99(Fasting)) L 01/23/24 Ca 7.5 mg/dl (8.6-10.3) L 01/23/24 Total Bilirubin 1.7 mg/dl (0.2-1.0) H 01/23/24 AST 61 U/L (13-39) H 01/23/24 ALT 27 U/L (7-52) 01/23/24 Alkaline Phosphatase 210 U/L (34-104) H 01/23/24 TP 5.3 gm/dl (6.0-8.3) L 01/23/24 Albumin 2.6 gm/dl (3.4-5.0) L 01/23/24 Globulin 2.7 gm/dl (2.5-4.0) 01/23/24 Albumin/Globulin Ratio 1.0 (0.9-2) 01/23/24 Mg 2.0 mg/dl (1.7-2.4) 01/23/24 08:01 Calcium Level 7.5 mg/dl (8.6-10.3) L 01/23/24 08:01 Venous Blood pH 7.32 (7.36-7.41) L 01/23/24 06:51 Venous Blood Partial Pressure CO2 27 mmHg (38-50) L 01/23/24 06 :51 Venous Blood Partial Pressure O2 36 mmHg 01/23/24 06:51 Venous Blood HCO3 14 mmol/L 01/23/24 06:51 Venous Blood Base Excess -10.7 mEq/L 01/23/24 06:51 Venous Blood Oxygen Saturation 61.5 % 01/23/24 06:51 Diagnostic Findings (Past 24 Hours) Chest X-Ray 01/22/24 19:32 XR chest 1V portable HISTORY: 88 years-old Male Tacypnea COMPARISON: Chest radiograph of same day at 2:38 AM TECHNIQUE: AP view chest FINDINGS: Cardiac silhouette is enlarged. Left subclavian pacer. Median sternotomy. No pneumothorax. Pulmonary vascular congestion with mild left basilar opacities. Degenerative changes of the shoulders and spine. Small pleural effusions. IMPRESSION: 1. Cardiomegaly with pulmonary vascular congestion. 2. Small pleural effusions with mild left basilar predominant atelectasis. ACT 112: Negative or not required by law. The above report was generated using voice recognition software. It may contain grammatical, syntax or spelling errors. Electronically signed by: Timothy Loredo M.D. 01/23/2024 6:36 AM Chest X-Ray 01/23/24 07:47 XR chest 1V portable HISTORY: 88 years-old Male labored breathing acute shortness of breath COMPARISON: 01/22/2024 TECHNIQUE: AP view the chest FINDINGS: Cardiac silhouette is enlarged. Left subclavian pacer. Median sternotomy. No pneumothorax. Pulmonary vascular congestion with mild left basilar opacities, unchanged. Degenerative changes of the shoulders and spine. Small pleural effusions. IMPRESSION: 1. Cardiomegaly with pulmonary vascular congestion. 2. Small pleural effusions with mild left basilar predominant atelectasis. ACT 112: Negative or not required by law. The above report was generated using voice recognition software. It may contain grammatical, syntax or spelling errors. Electronically signed by: Timothy Loredo M.D. 01/23/2024 8:49 AM Venous Doppler Study 01/23/24 07:48 US venous doppler LE RT HISTORY: 88 years-old Male r/o DVT acute pain and swelling of the right lower leg COMPARISON: 11/30/2020 TECHNIQUE: Multiple real-time sonographic images of the right lower extremity deep venous structures were obtained assessing grayscale appearance, color and spectral flow. FINDINGS: Normal flow, compressibility, phasicity and augmentation. IMPRESSION: No sonographic evidence of deep venous thrombosis. ACT 112: Negative or not required by law. The above report was generated using voice recognition software. It may contain grammatical, syntax or spelling errors. Electronically signed by: Timothy Loredo M.D. 01/23/2024 9:53 AM Renal Ultrasound 01/23/24 08:09 RENAL ULTRASOUND CLINICAL HISTORY: Acute kidney injury. COMPARISON STUDY: CT of the abdomen and pelvis January 22, 2024. TECHNIQUE: Sonography of the kidneys and the urinary bladder was performed. FINDINGS: The right kidney measures 11 cm in maximal dimension and the left measures 10.3 cm. There is no hydronephrosis. A 1.7 cm anechoic right upper pole renal lesion represents a cyst. Left kidney is partially obscured. There is mild bilateral renal cortical thinning. A Harrison balloon within the bladder is noted. IMPRESSION: No hydronephrosis. ACT 112: Negative or not required by law. Electronically signed by: Luis Ibarra M.D. 01/23/2024 9:49 AM I & O Totals 24 Hours 01/22/24 01/23/24 01/24/24 06:59 06:59 06:59 Intake Total 3926.367 / 3926.367 1065.333 / 1065.333 Output Total 0 / 0 20 20 Balance 3926.367 / 3926.367 1045.333 / 1045.333 Cumulative 01/22/24 01:07 thru 01/23/24 10:36 Intake Total 4991.700 Output Total 20 Balance 4971.700 RT Ventilator Mngmt (Last Documented) Ventilator Ordered Settings Respiratory Rate 24 01/23/24 07:53 Ventilator - PT Measurements Respiratory Rate 24 Coding Level of Care Code 67091 CRITICAL CARE 1ST 30-74M Diagnoses HENNA (acute kidney injury) N17.9 Thrombocytopenia D69.6 Coagulopathy D68.9
--- NOTE | 2024-01-23 11:21 | Nephrology Consultation ---
Date of Consultation January 23, 2024 Assessment & Plan (1) HENNA (acute kidney injury): * Oliguric HENNA. Patient has ATN. Urine microscopy shows granular casts. Renal US is negative for obstruction. ROBERT and NSAID use are likely contributing factors * POC discussed w/ primary service and patient's son Gabe this am. Patient is oliguric and electrolyte management is difficult as patient is unable to take oral potassium binding agents. Suspect renal dysfunction will be prolonged due to granular casts seen on microscopy. Indications/benefits/risks/alternatives to temporary dialysis catheter insertion and HD discussed w/ Gabe. He voiced understanding and asked that we proceed w/ HD * Will consult door and arrival attendant for temporary dialysis catheter insertion * Orders for HD have been entered into EMR and propagation worker HD RN notified * Hold lisinopril, NSAIDS. * Will also stop statin and order CPK * Monitor UO, daily BMP (2) Chronic kidney disease with active medical management without dialysis, stage 2 (mild): * CKD stage G2 (mild impairment). Baseline Cr 1.0 w/ EGFR 63 cc/min due to microvascular disease (3) Confusion: * Urinalysis suggestive of UTI * Await blood and urine cultures * Consider alternative to cefepime (ie., Zosyn) as this may accumulate in the setting of HENNA and may contribute to MS changes. History of Present Illness Reason for Consultation: HENNA/CKD, hyperkalemia Attending Physician: Luanne Sorensen MD History of Present Illness Mr. Ramirez is an 88 year old white male who is seen as a routine consult at the request of the [facility] hospitalist service for evaluation of HENNA/CKD, hyperkalemia. The patient is confused and agitated. He is unable to provide any details of his medical history. Information for the HPI is obtained from review of the EMR. HPI is summarized as follows: Mr. Ramirez has CKD stage G2 (mild impairment). Baseline Cr has been 1.0 w/ EGFR 63 cc/min. He has not undergone nephrology evaluation in the past. His CKD is on the basis of microvascular disease. Mr. 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 Mr. Ramirez presented to [facility] 01/22/24 for evaluation of confusion. He had been taking lisinopril and diclofenac at home but had poor oral intake at home. EMD evaluation revealed HENNA w/ Cr 3.61. Urinalysis c/w U TI. Microscopy revealed granular casts c/w ATN. Since admission patient has been hyperkalemic and acidemic. Primary service has provided IV Ca, dextrose and insulin to manage hyperkalemia. NaHCO3 gtt has been started. Patient has been unable to take potassium binding therapy due to mental status changes. Harrison catheter is in place but patient is oliguric. 01/23/24 renal US was negative for obstruction. ECG this am shows paced rhythm w/ peaked T-waves. Allergies Allergy/AdvReac Type Severity Reaction Status Date / Time No Known Allergies Allergy Mild NONE Verified 08/11/23 11:34 Home Medications Medication Instructions Recorded Confirmed Type nitroglycerin 0.4 mg sublingual 0.4 mg sublingual Q5M PRN chest 12/12/18 08/11/23 History tablet pain #25 tabs levothyroxine 88 mcg tablet 88 mcg PO QAM #90 tabs 03/15/23 08/11/23 Rx rosuvastatin 40 mg tablet (Crestor) 40 mg PO QAM #90 tabs 06/29/23 08/11/23 Rx hydrocodone 5 mg-acetaminophen 325 1 tab PO Q6H PRN pain #20 tabs 08/03/23 08/11/23 Rx mg tablet apixaban 5 mg tablet (Eliquis) 5 mg PO BID #180 tabs 10/14/23 Rx diclofenac sodium 75 mg 75 mg PO BID PRN pain #60 tabs 12/01/23 Rx tablet,delayed release aspirin 81 mg tablet 81 mg PO .qod #90 tabs 12/12/23 History lisinopril 2.5 mg tablet 2.5 mg PO DAILY #90 tabs 12/28/23 Rx Patient History Medical History Chronic anemia Hgb baseline 11-12 range per chart review Atrial fibrillation Taking warfarin Surgical History S/P cardiac pacemaker procedure 05/2018, [employer] History of colonoscopy History of prostatectomy 1990 History of cardiac cath 2009- stent x1 Status post Mohs surgery x2- nose/face History of inguinal hernia repair, bilateral Status post coronary artery stent placement 2010- right proximal History of cataract surgery R/L S/P thoracic aortic aneurysm repair 2018 ([facility]): per Dr. Abdi's note "repair of ascending aortic aneurysm and total aortic arch replacement with a 30 mm Hemashield branched graft" Family History Mother Coronary heart disease Other No family history of adverse response to anesthesia Social History Smoking Status: Never smoker Tobacco Type: Cigars Second Hand Exposure: No; Do You Dip or Chew Tobacco: No; Hx Alcohol Use: Yes Alcohol type: wine Alcohol Intake Frequency: 2-4 x/Month Hx Substance Use: No Preferred Language: Slovenian Communication Ability: Effective Communication Ability Comment: unable to receive education at this time due to admitting condition Visual Impairment: Limited Hearing Ability: Normal Arcgis Developer Required: No Beliefs That Will Affect Care: None marital status: Current Living Situation: Alone Current Living Situation Comment: Lives with current occupational status: retired How many Children do You have: 3 Feels Safe at Home: Yes Diet: regular caffeine: Yes (coffee each am) during the past year weight has: decreased > 10 lbs Assistive Devices: Cane and Glasses Review of Systems Review of Systems: Unobtainable due to cognitive status Physical Exam Constitutional: + ill appearing and + altered mental sta tus Eyes: PERRL, conjunctivae normal, anicteric sclerae ENMT: external ear and nose normal, oropharynx normal Neck: trachea midline, no thyromegaly Respiratory: normal respiratory effort, lungs clear to auscultation Cardiovascular: Rate/Rhythm: regular rate and regular rhythm Gastrointestinal (Abdomen): normal bowel sounds, soft, nontender, no hepatosplenomegaly Skin: no rashes, warm and dry Neurologic: awake (agitated) Results & Data Vital Signs (Past 12 Hours) Vital Signs Temp Pulse Resp BP Pulse Ox O2 Del Method 01/23/24 07:53 36.4 C L 68 24 122/69 94 Room Air 01/23/24 03:33 129/74 01/23/24 02:53 36.7 C 60 32 H 94/61 L 97 Room Air 01/22/24 23:51 36.5 C 68 26 H 115/67 97 Room Air Laboratory Results Laboratory Results WBC 8.75 K/ul (4.8-10.8) 01/23/24 04:26 RBC 3.88 M/uL (4.70-6.10) L 01/23/24 04:26 Hgb 11.6 g/dl (14.0-18.0) L 01/23/24 04:26 Hct 34.7 % (42.0-52.0) L 01/23/24 04:26 MCV 89.4 fL (80.0-100.0) 01/23/24 04:26 MCH 29.9 pg (25.0-34.0) 01/23/24 04:26 MCHC 33.4 g/dL (32.0-36.0) 01/23/24 04:26 RDW Std Deviation 50.4 fL (36.4-46.3) H 01/23/24 04:26 RDW Coeff of Jeannie 15.5 % (11.5-14.5) H 01/23/24 04:26 Plt Count 71 K/uL (130-400) L 01/23/24 04:26 MPV 12.2 fL (9.4-12.4) 01/23/24 04:26 Immature Gran % (Auto) 0.9 % 01/23/24 04:26 Neut % (Auto) 84.5 % 01/23/24 04:26 Lymph % (Auto) 7.4 % 01/23/24 04:26 Stokes % (Auto) 2.2 % 01/23/24 04:26 Eos % (Auto) 4.3 % 01/23/24 04:26 Baso % (Auto) 0.7 % 01/23/24 04:26 Neut # (Auto) 7.39 K/uL (1.40-6.50) H 01/23/24 04:26 Lymph # (Auto) 0.65 K/uL (1.20-3.40) L 01/23/24 04:26 Stokes # (Auto) 0.19 K/uL (0.11-0.59) 01/23/24 04:26 Eos # (Auto) 0.38 K/uL (0.00-0.50) 01/23/24 04:26 Baso # (Auto) 0.06 K/uL (0.00-0.20) 01/23/24 04:26 Immature Gran # (Auto) 0.08 K/uL (0.01-0.20) 01/23/24 04:26 Absolute Nucleated RBC 0.02 K/uL (0.00-0.12) 01/22/24 01:54 Nucleated RBC % (auto) 0.2 % 01/22/24 01:54 Hypogranular Neuts 1+ 01/23/24 04:26 Toxic Vacuolation 1+ 01/23/24 04:26 Dohle Bodies 1+ 01/23/24 04:26 Polychromasia 1+ 01/23/24 04:26 Basophilic Stippling 2+ 01/22/24 01:54 Echinocytes 2+ 01/23/24 04:26 PT 14.6 Seconds (9.0-12.0) H 01/22/24 01:54 INR 1.4 (0.9-1.1) H 01/22/24 01:54 APTT 41 Seconds (21-31) H 01/22/24 01:54 PTT Ratio 1.5 01/22/24 01:54 Heparin Anti-Xa, Unfract > 1.50 IU/ml (0.3-0.7) H* 01/23/24 06:51 VBG pH 7.32 (7.36-7.41) L 01/23/24 06:51 VBG pCO2 27 mmHg (38-50) L 01/23/24 06:51 VBG pO2 36 mmHg 01/23/24 06:51 VBG HCO3 14 mmol/L 01/23/24 06:51 VBG O2 Saturation 61.5 % 01/23/24 06:51 VBG Base Excess -10.7 mEq/L 01/23/24 06:51 Sodium 134 mmol/L (136-145) L 01/23/24 08:01 Potassium 6.3 mmol/L (3.5-5.1) H* 01/23/24 08:01 Chloride 103 mmol/L (98-107) 01/23/24 08:01 Carbon Dioxide 18 mmol/L (21-32) L 01/23/24 08:01 Anion Gap 13 (3-11) H 01/23/24 08:01 BUN 98 mg/dl (6-23) H 01/23/24 08:01 Creatinine 4.76 mg/dl (0.6-1.4) H* 01/23/24 08:01 Est Cr Clr Drug Dosing 12.0 ml/min 01/23/24 08:01 Est GFR ( Amer) 11.8 ml/min 01/23/24 08:01 Est GFR (Non-Af Amer) 10.1 ml/min 01/23/24 08:01 BUN/Creatinine Ratio 20.6 (10-20) H 01/23/24 08:01 Glucose 69 mg/dl (70-99(Fasting)) L 01/23/24 08:01 POC Glucose 161 mg/dl (70-99) H 01/23/24 10:15 Lactate 3.6 mmol/L (0.4-2.0) H* 01/23/24 07:16 Calcium 7.5 mg/dl (8.6-10.3) L 01/23/24 08:01 Magnesium 2.0 mg/dl (1.7-2.4) 01/23/24 08:01 Total Bilirubin 1.7 mg/dl (0.2-1.0) H 01/23/24 08:01 AST 61 U/L (13-39) H 01/23/24 08:01 ALT 27 U/L (7-52) 01/23/24 08:01 Alkaline Phosphatase 210 U/L (34-104) H 01/23/24 08:01 Troponin I High Sens 126.4 pg/ml (0-20) H* D 01/23/24 08:01 Total Protein 5.3 gm/dl (6.0-8.3) L 01/23/24 08:01 Albumin 2.6 gm/dl (3.4-5.0) L 01/23/24 08:01 Globulin 2.7 gm/dl (2.5-4.0) 01/23/24 08:01 Albumin/Globulin Ratio 1.0 (0.9-2) 01/23/24 08:01 Lipase 27 U/L (11-82) 01/22/24 01:54 Urine Color Dark Yellow 01/22/24 03:20 Urine Appearance Turbid (Clear) A 01/22/24 03:20 Urine pH 5.0 (4.5-7.5) 01/22/24 03:20 Ur Specific [place] 1.024 (1.000-1.030) 01/22/24 03:20 Urine Protein 3+ (Negative) H 01/22/24 03:20 Urine Glucose (UA) Trace (Negative) H 01/22/24 03:20 Urine Ketones Trace (Negative) H 01/22/24 03:20 Urine Blood Trace (Negative) H 01/22/24 03:20 Urine Nitrite Positive (Negative) A 01/22/24 03:20 Urine Bilirubin 1+ (Negative) H 01/22/24 03:20 Urine Urobilinogen Negative (Negative) 01/22/24 03:20 Ur Leukocyte Esterase 1+ (Negative) H 01/22/24 03:20 Urine WBC (Auto) 6-10 /hpf (0-5) H 01/22/24 03:20 Urine RBC (Auto) 6-10 /hpf (0-2) H 01/22/24 03:20 U Hyaline Cast (Auto) >20 /lpf (0-2) H 01/22/24 03:20 U Epithel Cells (Auto) >20 /hpf (0-2) H 01/22/24 03:20 Urine Bacteria (Auto) None Seen (None Seen) 01/22/24 03:20 Amorphous Sediment Present (None Prsent) A 01/22/24 03:20 Granular Casts Present /lpf (None Prsent) A 01/22/24 03:20 SARS-CoV-2 (PCR) NEGATIVE (Negative) 01/22/24 02:42 Influenza Type A (PCR) Negative (Neg) 01/22/24 02:42 Influenza Type B (PCR) Negative (Neg) 01/22/24 02:42 RSV (RT-PCR) Negative (Neg) 01/22/24 02:42 Impressions Knee X-Ray 01/22/24 02:32 XR knee RT 1 or 2V routine CLINICAL HISTORY: R shoulder pain TECHNIQUE: 2 views of the right knee were obtained. Comparison: Comparison is made to tibia and fibula radiographs 04/02/2021 FINDINGS: There is no evidence of an acute fracture. Degenerative changes are seen most prominent in the medial and patellofemoral compartment. A small suprapatellar effusion is seen. Vascular calcifications are noted. IMPRESSION: Suprapatellar effusion without evidence of underlying bony injury. Severe osteoarthritic changes are seen. ACT 112: Negative or not required by law. Electronically signed by: Antione Wong M.D. 01/22/2024 8:00 AM Shoulder X-Ray 01/22/24 02:32 XR shoulder RT min 2V routine CLINICAL HISTORY: R shoulder pain TECHNIQUE: 3 views of the right shoulder were obtained. Comparison: Comparison is made to shoulder radiograph 06/23/2022 FINDINGS: There is no evidence of an acute fracture. Interval healing changes of previously noted greater tuberosity fracture. Degenerative changes are seen in the glenohumeral joint. The overlying soft tissues are unremarkable. The visualized portions of the lungs are clear. IMPRESSION: Degenerative changes without evidence of acute abnormality. ACT 112: Negative or not required by law. Electronically signed by: Antione Wong M.D. 01/22/2024 7:54 AM Abdomen/Pelvis CT 01/22/24 03:09 Exam(s): CT ABDOMEN + PELVIS Without Contrast EXAM: CT Abdomen and Pelvis Without Intravenous Contrast CLINICAL HISTORY: Reason for exam: henna. TECHNIQUE: Axial computed tomography images of the abdomen and pelvis without intravenous contrast. Automated exposure control was utilized for the study. A dose lowering technique was utilized adhering to the principles of ALARA. COMPARISON: CT abdomen and pelvis: 11/29/2020 FINDINGS: Lung bases: Unremarkable. No mass. No consolidation. Pleural space: There are small dependent bilateral pleural effusions. Heart: There is moderate to severe cardiomegaly. Median sternotomy wires and vascular calcifications are noted. Pacing leads are partially visualized. ABDOMEN: Liver: Unremarkable. Gallbladder and bile ducts: There are few intraluminal gallstones. No pericholecystic inflammatory changes are noted. No ductal dilation. Pancreas: Unremarkable. No ductal dilation. Spleen: Unremarkable. No splenomegaly. Adrenals: Unremarkable. No mass. Kidneys and ureters: Unremarkable. No obstructing stones. No hydronephrosis. Stomach and bowel: There is a moderate volume of stool suggestive of constipation. There are scattered colonic diverticula. No free air or abscess identified. No obstruction. No mucosal thickening. PELVIS: Appendix: No findings to suggest acute appendicitis. Bladder: Unremarkable. No stones. Reproductive: Unremarkable as visualized. ABDOMEN and PELVIS: Intraperitoneal space: See above. Bones/joints: No acute fracture. No dislocation. Soft tissues: Unremarkable. Vasculature: There are scattered aortic atherosclerotic calcifications. There is an infrarenal abdominal aortic aneurysm measuring 3.8 x 3.8 cm. Previous measurements: 3.5 x 3.5 cm. There are scattered aortic and coronary artery calcifications. Lymph nodes: Unremarkable. No enlarged lymph nodes. IMPRESSION: 1. Moderate distal stool burden suggestive of constipation. 2. Cholelithiasis. 3. Colonic diverticulosis. 4. 3.8 x 3.8 cm infrarenal abdominal aortic aneurysm. Previous 2020 measurements: 3.5 x 3.5 cm. 5. No acute intra-abdominal or pelvic inflammatory process identified. No free air abscess identified. 6. Moderate to severe cardiomegaly and small dependent pleural effusions. Electronically signed by: Timo Marin MD 01/22/24 04:47 AM Chest X-Ray 01/23/24 07:47 XR chest 1V portable HISTORY: 88 years-old Male labored breathing acute shortness of breath COMPARISON: 01/22/2024 TECHNIQUE: AP view the chest FINDINGS: Cardiac silhouette is enlarged. Left subclavian pacer. Median sternotomy. No pneumothorax. Pulmonary vascular congestion with mild left basilar opacities, unchanged. Degenerative changes of the shoulders and spine. Small pleural effusions. IMPRESSION: 1. Cardiomegaly with pulmonary vascular congestion. 2. Small pleural effusions with mild left basilar predominant atelectasis. ACT 112: Negative or not required by law. The above report was generated using voice recognition software. It may contain grammatical, syntax or spelling errors. Electronically signed by: Timothy Loredo M.D. 01/23/2024 8:49 AM Venous Doppler Study 01/23/24 07:48 US venous doppler LE RT HISTORY: 88 years-old Male r/o DVT acute pain and swelling of the right lower leg COMPARISON: 11/30/2020 TECHNIQUE: Multiple real-time sonographic images of the right lower extremity deep venous structures were obtained assessing grayscale appearance, color and spectral flow. FINDINGS: Normal flow, compressibility, phasicity and augmentation. IMPRESSION: No sonographic evidence of deep venous thrombosis. ACT 112: Negative or not required by law. The above report was generated using voice recognition software. It may contain grammatical, syntax or spelling errors. Electronically signed by: Timothy Loredo M.D. 01/23/2024 9:53 AM Renal Ultrasound 01/23/24 08:09 RENAL ULTRASOUND CLINICAL HISTORY: Acute kidney injury. COMPARISON STUDY: CT of the abdomen and pelvis January 22, 2024. TECHNIQUE: Sonography of the kidneys and the urinary bladder was performed. FINDINGS: The right kidney measures 11 cm in maximal dimension and the left measures 10.3 cm. There is no hydronephrosis. A 1.7 cm anechoic right upper pole renal lesion represents a cyst. Left kidney is partially obscured. There is mild bilateral renal cortical thinning. A Harrison balloon within the bladder is noted. IMPRESSION: No hydronephrosis. ACT 112: Negative or not required by law. Electronically signed by: Luis Ibarra M.D. 01/23/2024 9:49 AM PG Care Time/CCT Total # of Minutes Spent Total Time Spent with Patient: Total time spent is greater than 50% in coordination of care (as documented) at patient's floor/unit and/or counseling patient: Coding Level of Care Code 07633 IN/OBS CONSULT LVL 5,80M Diagnoses HENNA (acute kidney injury) N17.9 Chronic kidney disease with active medical management without dialysis, stage 2 (mild) N18.2 Confusion R41.0
[2024-01-23] MEDS ORDERED: INSULIN HUMAN REGULAR SC SCH (11:30)
--- NOTE | 2024-01-23 12:01 | Procedure Note ---
Procedure Note Date of Service January 23, 2024 CENTRAL LINE PROCEDURE NOTE: Procedure: Temporary hemodialysis catheter placement Provider: Francisco Hutson MD Indication: Need for IV access for hemodialysis and patient with acute renal failure Anesthesia: 4 mL lidocaine 1% Site: Right IJ Consent was signed and placed on the chart prior to procedure. Indication, risks, and benefits were explained at length. Patient's son acted as DURABLE POWER OF SILK SCREEN PRINTER MACHINE for healthcare A time-out was completed verifying correct patient, procedure, site, positioning, and implants(s) or special equipment if applicable. Patients right neck was cleansed and draped in the typical sterile fashion using Chloraprep. Th e Internal Jugular Vein and Carotid Artery were identified using ultrasound. The superficial tissue was anesthetized using 4 mL of 1% lidocaine without epinephrine under direct visualization with the ultrasound. After adequate anesthetization was achieved, the Internal Jugular vein was cannulated under direct ultrasound guidance using an introducer needle on a syringe. Good venous blood return was maintained prior to removal of syringe from introducer needle. Using Seldinger Technique, a guide wire was advanced through the introducer needle without resistance. The introducer needle was removed and ultrasound images were obtained of the guide wire within the Internal Jugular Vein and saved to the patients medical record. A small incision was made in penetrating fashion at the guide wire insertion site utilizing an 11 blade scalpel. The dilators were advanced to the vessel without resistance. The final dilator was exchanged for the 16 cm dual port temporary HD catheter which was advanced into the vessel without resistance. The guide wire was removed intact from the catheter without issue. Claves were placed on each catheter tip with confirmation of good blood flow from each lumen. Each port was easily flushed with sterile saline. The catheter was placed at the hub cm and sutured in place. BioPatch was applied to the catheter and a sterile Tegaderm dressing was applied over the catheter with careful attention to sterility. Patient tolerated procedure well. No immediate complications were met. Post procedure x-ray was ordered and is pending Estimated blood loss: 5 mL [facility] Procedure Codes (Charges) Tubes, Drains, and Vasc Access Procedure 1: Tubes, Drains, and Vasc Access: [id number] Insertion of cannula for hemodialysis Procedure 2: Tubes, Drains, and Vasc Access: [id number] Ultrasound Guidance For Vascular Coding CPT Codes Tubes, Drains, and Vasc Access - Tubes, Drains, and Vasc Access: [id number] Insertion of cannula for hemodialysis ([id number]) Tubes, Drains, and Vasc Access - Tubes, Drains, and Vasc Access: [id number] Ultrasound Guidance For Vascular ([id number]) Additional Codes Date of Service ([facility].SURGERY)
[2024-01-23 12:04] LABS: BUN Creatinine Ratio 20.8 (10-20); Calcium 7.7 mg/dl (8.6-10.3); Est GFR (African American) 11.7 ml/min; Est GFR (Non-African American) 10.1 ml/min; Potassium 5.8 mmol/L (3.5-5.1)
--- NOTE | 2024-01-23 12:49 | XRay Report ---
XR chest 1V portable CLINICAL HISTORY: Status post line placement. COMPARISON STUDY: Chest CT November 29, 2020. Chest radiograph January 23, 2024 at 8:00 AM. FINDINGS: There is no pneumothorax placement of a right internal jugular central venous catheter. Tip projects over the cavoatrial junction. Left subclavian pacer and median sternotomy wires are noted. Moderate cardiomegaly. Mild pulmonary edema persists. Small left pleural effusion with left basilar o pacity is similar to prior exam. IMPRESSION: 1. No pneumothorax following placement of a right internal jugular central venous catheter. 2. Cardiomegaly with interstitial pulmonary edema, similar to prior exam. 3. No change in a small left pleural effusion with left basilar opacity. ACT 112: Negative or not required by law. Electronically signed by: Luis Ibarra M.D. 01/23/2024 12:46 PM
--- NOTE | 2024-01-23 13:46 | Hospitalist Progress Note ---
Date of Service January 23, 2024 Assessment & Plan (1) HENNA (acute kidney injury): (2) Presence of bare metal stent in right coronary artery: (3) Mitral and aortic regurgitation: (4) Atrial fibrillation: (5) Hypertension: (6) Pacemaker: (7) Dyslipidemia: (8) Coronary artery disease: (9) Acid reflux disease: (10) History of prostate cancer: (11) Urinary tract infection: Plan 88 y/o with PMH of CAD, s/p stent placement,, HTN, afib, OA admitted due to worsening HENNA and acute mental status change Acute kidney injury/ATN Metabolic acidosis - Oliguric, ATN - Secondary to NSAIDs Creatinine 4.77 on admission, baseline 1.11. UA significant for granular casts - likely ATN Hyperkalemia - s/p Insulin, Dextrose, Calcium gluconate Roller Repairer consulted, aprec recommendations: Plan for temporary dialysis today Cath placed today by scale mechanic CBC with differential, chemistry profile and magnesium level every morning Hold aspirin, lisinopril, diclofenac Continue trending labs Acute respiratory failure - Secondary to hypercapnia - HD today - CXR: Cardiomegaly and pulmonary - Echo cardiogram ordered. UTI: Most recent UTI of 12/01/2020 with Serratia marcescens that was ceftriaxone resistant UA culture sent - Ceftriaxone daily CAD/hypertension/history of RCA bare-metal stent/mitral and aortic regurgitation/atrial fibrillation- Continue apixaban Hold aspirin and lisinopril Most recent echocardiogram 04/07/2023, with ejection fraction 55-60% Repeat Echo ordered Right shoulder and knee osteoarthritis pain- Acetaminophen 650 mg by mouth every 6 hours as needed for mild pain or fever Hydrocodone/acetaminophen 5/325, 1 tablet every 6 hours as needed for moderate pain Diet:NPO VTE ppx: Eliquis on hold Code Status: changed to DNR/ DNI today, after discussion with his son Admission and Anticipated Discharge Date Admission Date: January 22, 2024 Supervising Physician Co-Signing Physician Notes Attending Physician Supervision Note: I independently interviewed and examined the patient and verified the stauffer history and physical, reviewed labs and image studies and agree with findings and care plan noted above. No meaningful HPI review of systems. tachypneic and saying he is in pain. Lungs clear, no hypoxia, ARF/ATN and Metabolic acidosis due to poor p.o. intake, NSAIDs, lisinopril. Worsening creatinine and Hyperkalemia resistant to medical mx. EKG with peaked t wave. Anuric. Slight improvement in bicarb with bicarb drip. Nephro consult - temporary dialysis catheter placed. HD today. -monitor bmp. -hold nephrotoxics Delirium - likely multifactorial. supportive care. Thrombocytopenia - held heparin drip. reassess in am. Tachypnea - SaO2 100% on 4L - will wean O2. BNP 700s. Echo with Severe LVH - IVC not dilated on echo but not compressible. -Follow Poor PO intake - assess once alert. will trial bowel regimen as well considering severe constipation. Concern of UTI on admission - culture sent today. continue ceftriaxone until cx back. CAD with stent/HTN/A fib - Eliquis held. Holding lisinopril and aspirin. Now DNR/DNI Subjective Patient evaluated this morning. Found in acute distress, with a decreased of mental status. Patient Potassium worsen to 6.4 and Cr to 4.77. Patient unable to take Lokelma due to change on mental status. Insulin, dextrose and calcium gluconate provided. Patient placed on bicarb drip as well. Nephro consulted for further management, plan toHD. Temporal catheter placed this morning by critical care. Code status discussion with his son this AM. After discussion of current status and aggressive interventions with Gabe (Patient's Son) decision was to place patient on DRI/DNI. All questions answered Review of Systems Review of Systems: as per HPI Physical Exam Constitutional: + ill appearing and + altered mental sta tus ENMT: external ear and nose normal, oropharynx normal Respiratory: + labored breathing Auscultation: + r honchi Cardiovascular: RRR, no murmur, no edema Gastrointestinal (Abdomen): normal bowel sounds, soft, nontender, no hepatosplenomegaly Results & Data Results & Data Vital Signs (Past 12 Hours) Vital Signs Temp Pulse Pulse Pulse Resp BP Pulse Ox 01/23/24 13:03 36.9 C 61 01/23/24 11:24 36.3 C L 76 24 126/70 93 01/23/24 11:15 01/23/24 09:22 62 01/23/24 07:53 36.4 C L 68 24 122/69 94 01/23/24 03:33 129/74 01/23/24 02:53 36.7 C 60 32 H 94/61 L 97 O2 Del Method O2 Flow Rate 01/23/24 13:03 01/23/24 11:24 Nasal Cannula 3 01/23/24 11:15 Room Air 01/23/24 09:22 01/23/24 07:53 Room Air 01/23/24 03:33 01/23/24 02:53 Room Air Resident Activity Tracking Resident Involvement: Resident Care Provided Care Provided: Adult Hospital Medicine (4) Atrial fibrillation Atrial fibrillation type: permanent Qualified Code(s): I48.21 - Permanent atrial fibrillation
[2024-01-23 14:40] LABS: Hep B Surface Ag with confirm Negative (Negative)
--- NOTE | 2024-01-23 15:59 | XCELERA ---
[id number] [id number]
[2024-01-23 17:41] LABS: BUN Creatinine Ratio 19.6 (10-20); Calcium 7.9 mg/dl (8.6-10.3); Est GFR (African American) 17.8 ml/min; Est GFR (Non-African American) 15.4 ml/min; Potassium 5.1 mmol/L (3.5-5.1)
[2024-01-23] MEDS: DEXTROSE 50% 50 ML SYRINGE IV ONE ×2 (17:56→18:09)
[2024-01-23] MEDS ORDERED: GLUCAGON FOR INJ 1 MG VIAL SQ PRN (18:25)
[2024-01-23] MEDS ORDERED: DEXTROSE 50% 50 ML SYRINGE IV PRN (18:25)
[2024-01-23] MEDS ORDERED: GLUCOSE 40% GEL 15 GM TUBE PO PRN (18:25)
[2024-01-23] MEDS ORDERED: CARBOHYDRATES FOR HYPOGLYCEMIA PO PRN (18:25)
[2024-01-23] MEDS ORDERED: GLUCOSE 10 TAB/TUBE PO PRN (18:25)
--- NOTE | 2024-01-24 00:51 | Communication Note ---
Date of Service: January 24, 2024 Notified about blood pressure of 88/63, up to 100s systolic when I was at bedside. Evaluated pt at bedside-overall appears about the same as when I saw him yesterday. Will open eyes, but following minimal commands. Remains tachypneic. Heart with RRR, lungs clear to auscultation B/L. LE 2+ pitting edema B/L. Repeat labs with lactate up trending 4.9. WBC 12.7, Plts 71-> 86. VBG improved from earlier in day. K remains elevated at 5.9. Trop 126-> 182. Coagulation studies pending. Concern that my be intravascular dry with 3rd spacing given his elevated lactate-> will give small bolus. Repeat lactate qAM. Mildly up trending troponin, likely demand ischemia in the setting of acute illness->trend to peak.
[2024-01-24 01:31] LABS: Base Excess VBG -6.3 mEq/L; HCO3 VBG 18 mmol/L; Oxygen Saturation VBG 65.7 %; PCO2 VBG 32 mmHg (38-50); PO2 VBG 42 mmHg; pH VBG 7.36 (7.36-7.41)
[2024-01-24 01:52] LABS: Albumin Globulin Ratio 0.9 (0.9-2); Albumin Level 2.6 gm/dl (3.4-5.0); BUN Creatinine Ratio 18.2 (10-20); Calcium 7.8 mg/dl (8.6-10.3); Creatinine Clr Calc Pharmacy 14.5 ml/min; Est GFR (African American) 14.7 ml/min; Est GFR (Non-African American) 12.7 ml/min; Globulin 2.8 gm/dl (2.5-4.0); Potassium 5.9 mmol/L (3.5-5.1); Total Protein 5.4 gm/dl (6.0-8.3)
[2024-01-24 02:02] LABS: Hematocrit (blood only) 32.8 % (42.0-52.0); Mean Corpuscular Hemoglobin 29.7 pg (25.0-34.0); Mean Corpuscular Hgb Conc 33.5 g/dL (32.0-36.0); Mean Corpuscular Volume 88.6 fL (80.0-100.0); Mean Platelet Volume 11.4 fL (9.4-12.4); Platelet Count 86 K/uL (130-400); RDW Coefficient of Variation 15.8 % (11.5-14.5); RDW Standard Deviation 51.3 fL (36.4-46.3); White Blood Count 12.74 K/ul (4.8-10.8)
[2024-01-24 02:05] LABS: Basophilic Stippling 1+; Basophils # (auto) 0.08 K/uL (0.00-0.20); Basophils % (auto) 0.6 %; Dohle Bodies 1+; Echinocytes 1+; Eosinophils # (auto) 0.36 K/uL (0.00-0.50); Eosinophils % (auto) 2.8 %; Immature Granulocytes # (auto) 0.24 K/uL (0.01-0.20); Immature Granulocytes % (auto) 1.9 %; Lymphocytes # (auto) 0.65 K/uL (1.20-3.40); Lymphocytes % (auto) 5.1 %; Monocytes # (auto) 0.21 K/uL (0.11-0.59); Monocytes % (auto) 1.6 %; Toxic Granulation 1+
[2024-01-24 02:14] LABS: Troponin I High Sensitivity 182.1 pg/ml (0-20)
[2024-01-24 02:35] LABS: Fibrinogen > 860 mg/dl (184-400); INR 1.4 (0.9-1.1); Prothrombin Time 14.3 Seconds (9.0-12.0)
[2024-01-24] MEDS: SODIUM CHLORIDE 0.9% 250 ML IV ONE (03:30)
--- NOTE | 2024-01-24 05:59 | Electrocardiogram Report ---
Test Reason : Blood Pressure : */* mmHG Vent. Rate : 63 BPM Atrial Rate : * BPM P-R Int : * ms QRS Dur : 94 ms QT Int : 376 ms P-R-T Axes : * 20 -57 degrees QTcB Int : 384 ms Atrial fibrillation with frequent ventricular-paced complexes Abnormal ECG When compared with ECG of 17-Mar-2023 13:30, Vent. rate has increased by 2 bpm Confirmed by Erik Mars ([id number]) on 01/24/2024 5:58:18 AM Referred By: REFERRED SELF Confirmed By: Erik Mars
--- NOTE | 2024-01-24 06:27 | Electrocardiogram Report ---
Test Reason : Blood Pressure : */* mmHG Vent. Rate : 107 BPM Atrial Rate : 220 BPM P-R Int : * ms QRS Dur : 170 ms QT Int : 474 ms P-R-T Axes : * -72 47 degrees QTcB Int : 632 ms Ventricular-paced rhythm with premature ventricular or aberrantly conducted complexes Abnormal ECG When compared with ECG of 22-Jan-2024 01:43, (unconfirmed) Vent. rate has increased by 44 bpm Confirmed by Erik Mars ([id number]) on 01/24/2024 6:27:08 AM Referred By: REFERRED SELF Confirmed By: Erik Mars
[2024-01-24 06:33] LABS: Hematocrit (blood only) 31.8 % (42.0-52.0); Hemoglobin 10.6 g/dl (14.0-18.0); Mean Corpuscular Hemoglobin 29.6 pg (25.0-34.0); Mean Corpuscular Hgb Conc 33.3 g/dL (32.0-36.0); Mean Corpuscular Volume 88.8 fL (80.0-100.0); Platelet Count 89 K/uL (130-400); RDW Coefficient of Variation 15.7 % (11.5-14.5); RDW Standard Deviation 51.8 fL (36.4-46.3); Red Blood Count 3.58 M/uL (4.70-6.10); White Blood Count 12.41 K/ul (4.8-10.8)
[2024-01-24 06:42] LABS: Basophils # (auto) 0.08 K/uL (0.00-0.20); Basophils % (auto) 0.6 %; Dohle Bodies 1+; Echinocytes 2+; Eosinophils # (auto) 0.02 K/uL (0.00-0.50); Eosinophils % (auto) 0.2 %; Immature Granulocytes # (auto) 0.22 K/uL (0.01-0.20); Immature Granulocytes % (auto) 1.8 %; Lymphocytes # (auto) 0.88 K/uL (1.20-3.40); Lymphocytes % (auto) 7.1 %; Monocytes # (auto) 0.23 K/uL (0.11-0.59); Monocytes % (auto) 1.9 %; Neutrophils # (auto) 10.98 K/uL (1.40-6.50); Neutrophils % (auto) 88.4 %
[2024-01-24 06:45] LABS: Albumin Globulin Ratio 0.9 (0.9-2); Albumin Level 2.4 gm/dl (3.4-5.0); BUN Creatinine Ratio 18.4 (10-20); Bilirubin,Total 1.8 mg/dl (0.2-1.0); Calcium 7.5 mg/dl (8.6-10.3); Creatinine Clr Calc Pharmacy 14.1 ml/min; Est GFR (Non-African American) 12.1 ml/min; Globulin 2.8 gm/dl (2.5-4.0); Magnesium 2.1 mg/dl (1.7-2.4); Potassium 6.1 mmol/L (3.5-5.1); Total Protein 5.2 gm/dl (6.0-8.3)
--- NOTE | 2024-01-24 06:51 | Electrocardiogram Report ---
Test Reason : Blood Pressure : */* mmHG Vent. Rate : 111 BPM Atrial Rate : 58 BPM P-R Int : * ms QRS Dur : 158 ms QT Int : 240 ms P-R-T Axes : * 142 -27 degrees QTcB Int : 326 ms Atrial fibrillation with frequent ventricular-paced complexes Abnormal ECG When compared with ECG of 22-Jan-2024 19:11, (unconfirmed) Vent. rate has increased by 4 bpm Confirmed by Erik Mars ([id number]) on 01/24/2024 6:50:59 AM Referred By: REFERRED SELF Confirmed By: Erik Mars
--- NOTE | 2024-01-24 06:52 | Electrocardiogram Report ---
Test Reason : Blood Pressure : */* mmHG Vent. Rate : 107 BPM Atrial Rate : 60 BPM P-R Int : * ms QRS Dur : 144 ms QT Int : 228 ms P-R-T Axes : * 70 256 degrees QTcB Int : 304 ms Atrial fibrillation with frequent ventricular paced complexes Abnormal ECG When compared with ECG of 22-Jan-2024 19:11, (unconfirmed) No significant change Confirmed by Erik Mars ([id number]) on 01/24/2024 6:52:18 AM Referred By: REFERRED SELF Confirmed By: Erik Mars
[2024-01-24] MEDS: SODIUM CHLORIDE 0.9% 500 ML IV SCH (07:33)
[2024-01-24] MEDS ORDERED: SODIUM CHLORIDE 0.9% 1,000 ML IV PRN (08:42)
--- NOTE | 2024-01-24 08:45 | Nephrology Progress Note ---
Date of Service January 24, 2024 Assessment & Plan (1) HENNA (acute kidney injury): Plan: * Oliguric HENNA. Patient has ATN. Urine microscopy shows granular casts. Renal US is negative for obstruction. ROBERT and NSAID use are likely contributing factors * Patient dialyzed for 2 hours yesterday w/ no UF * Remains hyperkalemic, azotemic this morning * Will provide HD today to correct electrolytes and attempt 1 L UF * Orders for HD have been entered into EMR and tombstone erector HD RN notified * Hold lisinopril, NSAIDS. * CPK mildly elevated at 601. 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 Baseline Cr 1.0 w/ EGFR 63 cc/min due to microvascular disease (3) Confusion: Plan: * Urinalysis suggestive of UTI * Await blood and urine cultures * Now on IV Zosyn therapy Admission and Anticipated Discharge Date Admission Date: January 22, 2024 Subjective Mr. Ramirez was evaluated in his hospital room this morning. He remains confused, agitated. Now on oxymask at 4L/min. Review of Systems Review of Systems: Unobtainable due to cognitive status Physical Exam Constitutional: + ill appearing and + altered mental sta tus Eyes: PERRL, conjunctivae normal, anicteric sclerae ENMT: external ear and nose normal, oropharynx normal Neck: trachea midline, no thyromegaly Respiratory: normal respiratory effort, lungs clear to auscultation Cardiovascular: Rate/Rhythm: regular rate and regular rhythm Gastrointestinal (Abdomen): normal bowel sounds, soft, nontender, no hepatosplenomegaly Skin: no rashes, warm and dry Neurologic: awake (agitated) Results & Data Vital Signs (Past 12 Hours) Vital Signs Temp Pulse Pulse Resp BP Pulse Ox O2 Del Method 01/24/24 08:06 36.5 C 61 26 H 102/55 L 92 Oxymask 01/24/24 03:49 62 30 H 129/63 95 Oxymask 01/24/24 03:20 60 30 H 115/57 L 93 Oxymask 01/24/24 03:04 36.4 C L 69 18 165/74 H 97 Oxymask 01/23/24 23:43 36.8 C 62 18 88/63 L 93 Nasal Cannula 09/16/24 23:00 62 28 H 110/50 L 96 Oxymask 01/23/24 22:01 60 O2 Flow Rate 01/24/24 08:06 4 01/24/24 03:49 2 01/24/24 03:20 2 01/24/24 03:04 2 01/23/24 23:43 4 01/23/24 23:00 2 01/23/24 22:01 Laboratory Results Laboratory Results WBC 12.41 K/ul (4.8-10.8) H 01/24/24 06:05 RBC 3.58 M/uL (4.70-6.10) L 01/24/24 06:05 Hgb 10.6 g/dl (14.0-18.0) L 01/24/24 06:05 Hct 31.8 % (42.0-52.0) L 01/24/24 06:05 MCV 88.8 fL (80.0-100.0) 01/24/24 06:05 MCH 29.6 pg (25.0-34.0) 01/24/24 06:05 MCHC 33.3 g/dL (32.0-36.0) 01/24/24 06:05 RDW Std Deviation 51.8 fL (36.4-46.3) H 01/24/24 06:05 RDW Coeff of Jeannie 15.7 % (11.5-14.5) H 01/24/24 06:05 Plt Count 89 K/uL (130-400) L 01/24/24 06:05 MPV 12.0 fL (9.4-12.4) 01/24/24 06:05 Immature Gran % (Auto) 1.8 % 01/24/24 06:05 Neut % (Auto) 88.4 % 01/24/24 06:05 Lymph % (Auto) 7.1 % 01/24/24 06:05 [place] % (Auto) 1.9 % 01/24/24 06:05 Eos % (Auto) 0.2 % 01/24/24 06:05 Baso % (Auto) 0.6 % 01/24/24 06:05 Neut # (Auto) 10.98 K/uL (1.40-6.50) H 01/24/24 06:05 Lymph # (Auto) 0.88 K/uL (1.20-3.40) L 01/24/24 06:05 [place] # (Auto) 0.23 K/uL (0.11-0.59) 01/24/24 06:05 Eos # (Auto) 0.02 K/uL (0.00-0.50) 01/24/24 06:05 Baso # (Auto) 0.08 K/uL (0.00-0.20) 01/24/24 06:05 Immature Gran # (Auto) 0.22 K/uL (0.01-0.20) H 01/24/24 06:05 Absolute Nucleated RBC 0.02 K/uL (0.00-0.12) 01/22/24 01:54 Nucleated RBC % (auto) 0.2 % 01/22/24 01:54 Hypogranular Neuts 1+ 01/23/24 04:26 Toxic Granulation 1+ 01/24/24 01:17 Toxic Vacuolation 1+ 01/23/24 04:26 Dohle Bodies 1+ 01/24/24 06:05 Polychromasia 1+ 01/23/24 04:26 Basophilic Stippling 1+ 01/24/24 01:17 Echinocytes 2+ 01/24/24 06:05 PT 14.3 Seconds (9.0-12.0) H 01/24/24 01:16 INR 1.4 (0.9-1.1) H 01/24/24 01:16 APTT 41 Seconds (21-31) H 01/22/24 01:54 PTT Ratio 1.5 01/22/24 01:54 Fibrinogen > 860 mg/dl (184-400) H 01/24/24 01:16 Heparin Anti-Xa, Unfract > 1.50 IU/ml (0.3-0.7) H* 01/23/24 06:51 VBG pH 7.36 (7.36-7.41) 01/24/24 01:17 VBG pCO2 32 mmHg (38-50) L 01/24/24 01:17 VBG pO2 42 mmHg 01/24/24 01:17 VBG HCO3 18 mmol/L 01/24/24 01:17 VBG O2 Saturation 65.7 % 01/24/24 01:17 VBG Base Excess -6.3 mEq/L 01/24/24 01:17 Sodium 136 mmol/L (136-145) 01/24/24 06:05 Potassium 6.1 mmol/L (3.5-5.1) H* 01/24/24 06:05 Chloride 103 mmol/L (98-107) 01/24/24 06:05 Carbon Dioxide 19 mmol/L (21-32) L 01/24/24 06:05 Anion Gap 14 (3-11) H 01/24/24 06:05 BUN 76 mg/dl (6-23) H 01/24/24 06:05 Creatinine 4.12 mg/dl (0.6-1.4) H 01/24/24 06:05 Est Cr Clr Drug Dosing 14.1 ml/min 01/24/24 06:05 Est GFR ( Amer) 14.0 ml/min 01/24/24 06:05 Est GFR (Non-Af Amer) 12.1 ml/min 01/24/24 06:05 BUN/Creatinine Ratio 18.4 (10-20) 01/24/24 06:05 Glucose 78 mg/dl (70-99(Fasting)) 01/24/24 06:05 POC Glucose 81 mg/dl (70-99) 01/24/24 06:08 Lactate 3.5 mmol/L (0.4-2.0) H* 01/24/24 06:05 Calcium 7.5 mg/dl (8.6-10.3) L 01/24/24 06:05 Magnesium 2.1 mg/dl (1.7-2.4) 01/24/24 06:05 Total Bilirubin 1.8 mg/dl (0.2-1.0) H 01/24/24 06:05 AST 102 U/L (13-39) H 01/24/24 06:05 ALT 38 U/L (7-52) 01/24/24 06:05 Alkaline Phosphatase 362 U/L (34-104) H 01/24/24 06:05 Total Creatine Kinase 601 U/L (30-223) H 01/23/24 11:14 Troponin I High Sens 182.1 pg/ml (0-20) H* D 01/24/24 01:17 B-Natriuretic Peptide 760 pg/ml (0-100) H 01/23/24 11:14 Total Protein 5.2 gm/dl (6.0-8.3) L 01/24/24 06:05 Albumin 2.4 gm/dl (3.4-5.0) L 01/24/24 06:05 Globulin 2.8 gm/dl (2.5-4.0) 01/24/24 06:05 Albumin/Globulin Ratio 0.9 (0.9-2) 01/24/24 06:05 Lipase 27 U/L (11-82) 01/22/24 01:54 Random Cortisol 28.23 mcg/dl 01/24/24 01:17 Urine Color Dark Yellow 01/22/24 03:20 Urine Appearance Turbid (Clear) A 01/22/24 03:20 Urine pH 5.0 (4.5-7.5) 01/22/24 03:20 Ur Specific [place] 1.024 (1.000-1.030) 01/22/24 03:20 Urine Protein 3+ (Negative) H 01/22/24 03:20 Urine Glucose (UA) Trace (Negative) H 01/22/24 03:20 Urine Ketones Trace (Negative) H 01/22/24 03:20 Urine Blood Trace (Negative) H 01/22/24 03:20 Urine Nitrite Positive (Negative) A 01/22/24 03:20 Urine Bilirubin 1+ (Negative) H 01/22/24 03:20 Urine Urobilinogen Negative (Negative) 01/22/24 03:20 Ur Leukocyte Esterase 1+ (Negative) H 01/22/24 03:20 Urine WBC (Auto) 6-10 /hpf (0-5) H 01/22/24 03:20 Urine RBC (Auto) 6-10 /hpf (0-2) H 01/22/24 03:20 U Hyaline Cast (Auto) >20 /lpf (0-2) H 01/22/24 03:20 U Epithel Cells (Auto) >20 /hpf (0-2) H 01/22/24 03:20 Urine Bacteria (Auto) None Seen (None Seen) 01/22/24 03:20 Amorphous Sediment Present (None Prsent) A 01/22/24 03:20 Granular Casts Present /lpf (None Prsent) A 09/15/24 03:20 SARS-CoV-2 (PCR) NEGATIVE (Negative) 01/22/24 02:42 Hep Bs Antigen Negative (Negative) 01/23/24 08:02 Influenza Type A (PCR) Negative (Neg) 01/22/24 02:42 Influenza Type B (PCR) Negative (Neg) 01/22/24 02:42 RSV (RT-PCR) Negative (Neg) 01/22/24 02:42 Impressions Knee X-Ray 01/22/24 02:32 XR knee RT 1 or 2V routine CLINICAL HISTORY: R shoulder pain TECHNIQUE: 2 views of the right knee were obtained. Comparison: Comparison is made to tibia and fibula radiographs 04/02/2021 FINDINGS: There is no evidence of an acute fracture. Degenerative changes are seen most prominent in the medial and patellofemoral compartment. A small suprapatellar effusion is seen. Vascular calcifications are noted. IMPRESSION: Suprapatellar effusion without evidence of underlying bony injury. Severe osteoarthritic changes are seen. ACT 112: Negative or not required by law. Electronically signed by: Antione Wong M.D. 01/22/2024 8:00 AM Shoulder X-Ray 01/22/24 02:32 XR shoulder RT min 2V routine CLINICAL HISTORY: R shoulder pain TECHNIQUE: 3 views of the right shoulder were obtained. Comparison: Comparison is made to shoulder radiograph 06/23/2022 FINDINGS: There is no evidence of an acute fracture. Interval healing changes of previously noted greater tuberosity fracture. Degenerative changes are seen in the glenohumeral joint. The overlying soft tissues are unremarkable. The visualized portions of the lungs are clear. IMPRESSION: Degenerative changes without evidence of acute abnormality. ACT 112: Negative or not required by law. Electronically signed by: Antione Wong M.D. 01/22/2024 7:54 AM Abdomen/Pelvis CT 01/22/24 03:09 Exam(s): CT ABDOMEN + PELVIS Without Contrast EXAM: CT Abdomen and Pelvis Without Intravenous Contrast CLINICAL HISTORY: Reason for exam: henna. TECHNIQUE: Axial computed tomography images of the abdomen and pelvis without intravenous contrast. Automated exposure control was utilized for the study. A dose lowering technique was utilized adhering to the principles of ALARA. COMPARISON: CT abdomen and pelvis: 11/29/2020 FINDINGS: Lung bases: Unremarkable. No mass. No consolidation. Pleural space: There are small dependent bilateral pleural effusions. Heart: There is moderate to severe cardiomegaly. Median sternotomy wires and vascular calcifications are noted. Pacing leads are partially visualized. ABDOMEN: Liver: Unremarkable. Gallbladder and bile ducts: There are few intraluminal gallstones. No pericholecystic inflammatory changes are noted. No ductal dilation. Pancreas: Unremarkable. No ductal dilation. Spleen: Unremarkable. No splenomegaly. Adrenals: Unremarkable. No mass. Kidneys and ureters: Unremarkable. No obstructing stones. No hydronephrosis. Stomach and bowel: There is a moderate volume of stool suggestive of constipation. There are scattered colonic diverticula. No free air or abscess identified. No obstruction. No mucosal thickening. PELVIS: Appendix: No findings to suggest acute appendicitis. Bladder: Unremarkable. No stones. Reproductive: Unremarkable as visualized. ABDOMEN and PELVIS: Intraperitoneal space: See above. Bones/joints: No acute fracture. No dislocation. Soft tissues: Unremarkable. Vasculature: There are scattered aortic atherosclerotic calcifications. There is an infrarenal abdominal aortic aneurysm measuring 3.8 x 3.8 cm. Previous measurements: 3.5 x 3.5 cm. There are scattered aortic and coronary artery calcifications. Lymph nodes: Unremarkable. No enlarged lymph nodes. IMPRESSION: 1. Moderate distal stool burden suggestive of constipation. 2. Cholelithiasis. 3. Colonic diverticulosis. 4. 3.8 x 3.8 cm infrarenal abdominal aortic aneurysm. Previous 2020 measurements: 3.5 x 3.5 cm. 5. No acute intra-abdominal or pelvic inflammatory process identified. No free air abscess identified. 6. Moderate to severe cardiomegaly and small dependent pleural effusions. Electronically signed by: Timo Marin MD 01/22/24 04:47 AM Venous Doppler Study 01/23/24 07:48 US venous doppler LE RT HISTORY: 88 years-old Male r/o DVT acute pain and swelling of the right lower leg COMPARISON: 11/30/2020 TECHNIQUE: Multiple real-time sonographic images of the right lower extremity deep venous structures were obtained assessing grayscale appearance, color and spectral flow. FINDINGS: Normal flow, compressibility, phasicity and augmentation. IMPRESSION: No sonographic evidence of deep venous thrombosis. ACT 112: Negative or not required by law. The above report was generated using voice recognition software. It may contain grammatical, syntax or spelling errors. Electronically signed by: Timothy Loredo M.D. 01/23/2024 9:53 AM Renal Ultrasound 01/23/24 08:09 RENAL ULTRASOUND CLINICAL HISTORY: Acute kidney injury. COMPARISON STUDY: CT of the abdomen and pelvis January 22, 2024. TECHNIQUE: Sonography of the kidneys and the urinary bladder was performed. FINDINGS: The right kidney measures 11 cm in maximal dimension and the left measures 10.3 cm. There is no hydronephrosis. A 1.7 cm anechoic right upper pole renal lesion represents a cyst. Left kidney is partially obscured. There is mild bilateral renal cortical thinning. A Harrison balloon within the bladder is noted. IMPRESSION: No hydronephrosis. ACT 112: Negative or not required by law. Electronically signed by: Luis Ibarra M.D. 01/23/2024 9:49 AM Chest X-Ray 01/23/24 11:59 XR chest 1V portable CLINICAL HISTORY: Status post line placement. COMPARISON STUDY: Chest CT November 29, 2020. Chest radiograph January 23, 2024 at 8:00 AM. FINDINGS: There is no pneumothorax placement of a right internal jugular central venous catheter. Tip projects over the cavoatrial junction. Left subclavian pacer and median sternotomy wires are noted. Moderate cardiomegaly. Mild pulmonary edema persists. Small left pleural effusion with left basilar opacity is similar to prior exam. IMPRESSION: 1. No pneumothorax following placement of a right internal jugular central venous catheter. 2. Cardiomegaly with interstitial pulmonary edema, similar to prior exam. 3. No change in a small left pleural effusion with left basilar opacity. ACT 112: Negative or not required by law. Electronically signed by: Luis Ibarra M.D. 01/23/2024 12:46 PM Diagnostic Findings 01/23/24 Echocardiogram: hyperdynamic LVEF, severe LVH, moderate TR, PASP 40-50 mmHG, IVC of normal diameter, heavily calcified AV PG Care Time/CCT Total # of Minutes Spent Total Time Spent with Patient: Total time spent is greater than 50% in coordination of care (as documented) at patient's floor/unit and/or counseling patient: Coding Level of Care Code 61293 SUB INP/OBS CARE 3/50MIN Diagnoses HENNA (acute kidney injury) N17.9 Chronic kidney disease with active medical management without dialysis, stage 2 (mild) N18.2 Confusion R41.0
[2024-01-24] MEDS ORDERED: 4.5GM X1 IV ONE (09:00)
--- NOTE | 2024-01-24 12:08 | Hospitalist Progress Note ---
Date of Service January 24, 2024 Assessment & Plan (1) HENNA (acute kidney injury): (2) Presence of bare metal stent in right coronary artery: (3) Mitral and aortic regurgitation: (4) Atrial fibrillation: (5) Hypertension: (6) Pacemaker: (7) Dyslipidemia: (8) Coronary artery disease: (9) Acid reflux disease: (10) History of prostate cancer: (11) Urinary tract infection: Plan 88 y/o with PMH of CAD, s/p stent placement,, HTN, afib, OA admitted due to worsening HENNA and acute mental status change Acute kidney injury/ATN Metabolic acidosis - Oliguric, ATN - Secondary to NSAIDs, poor po - Creatinine 4.77 on admission, baseline 1.11. UA significant for granular casts - likely ATN Hyperkalemia - s/p Insulin, Dextrose, Calcium gluconate Can Crimper consulted, aprec recommendations: HD again today to correct electrolytes and attempt 1 L UF Hold nephrotoxic Continue trending labs Acute respiratory failure Tachypnea - Secondary to hypercapnia - CXR: Cardiomegaly and pulmonary - Echo : moderate pulmonary HTN - Second HD today Possible UTI: UA culture sent, negative for 24 - Zosyn IV CAD/hypertension/history of RCA bare-metal stent/mitral and aortic regurgitat ion/atrial fibrillation- Continue apixaban held, on heparin drip Hold aspirin and lisinopril Right shoulder and knee osteoarthritis pain- Acetaminophen 650 mg by mouth every 6 hours as needed for mild pain or fever Hydrocodone/acetaminophen 5/325, 1 tablet every 6 hours as needed for moderate pain Diet:NPO VTE ppx: Heparin restarted Code Status: DNR/ DNI Admission and Anticipated Discharge Date Admission Date: January 22, 2024 Supervising Physician Co-Signing Physician Notes Attending Physician Supervision Note: I independently interviewed and examined the patient and verified the stauffer history and physical, reviewed labs and image studies and agree with findings and care plan noted above. No meaningful HPI review of systems. vitals reviewed. not responsive. comfortable in bed. Mouth breathing. Tachypnea. Lungs clear anteriorly. Edema all extremities. ARF/ATN - Oliguric, granular cast, Renal US neg for obstruction. Hyperkalemia - due to poor p.o. intake, NSAIDs, lisinopril. Remains Hyperk and azotemic. -HD again today to correct electrolytes and attempt 1 L UF -monitor bmp and UO -hold nephrotoxics -CPK elevated. Statin on hold. Concern of UTI on admission - UA suggestive. culture sent after starting abx. continue zosyn to finish short course. -Lactate elevation from poor perfusion(multifactorial). Tachypnea - SaO2 93% on 4L. CXR - pul vascular congestion. BNP 700s. Severe LVH, moderate Pul HTN - IVC not collapsing with respiration. -HD with 1L UF today. Delirium - likely multifactorial. supportive care. Thrombocytopenia - Improving. Resume heparin drip. Monitor counts. Malnutrition and Poor PO intake - assess once alert. will trial bowel regimen as well considering severe constipation. -Also UA 3+ protein. Recheck UA once able to diurese. CAD with stent/HTN/A fib - Eliquis held. Holding lisinopril and aspirin. DNR/DNI Subjective Patient seen this morning. Continue Oliguric. Altered mental status Review of Systems Review of Systems: as per HPI Physical Exam Constitutional: + ill appearing and + altered mental sta tus ENMT: external ear and nose normal, oropharynx normal Respiratory: + labored breathing Cardiovascular: Rate/Rhythm: + irregularly irregular Heart Sounds: normal S1 and normal S2 Extremities: + edema Gastrointestinal (Abdomen): normal bowel sounds, soft, nontender, no hepatosplenomegaly Results & Data Results & Data Vital Signs (Past 12 Hours) Vital Signs Temp Pulse Pulse Resp BP BP Pulse Ox 01/24/24 11:15 69 109/50 L 01/24/24 11:00 57 L 84/43 L 01/24/24 10:30 53 L 99/29 L 01/24/24 10:26 60 113/64 01/24/24 10:20 36.6 C 56 L 01/24/24 08:06 36.5 C 61 26 H 102/55 L 92 01/24/24 08:00 59 L 01/24/24 08:00 01/24/24 03:49 62 30 H 129/63 95 01/24/24 03:20 60 30 H 115/57 L 93 01/24/24 03:04 36.4 C L 69 18 165/74 H 97 O2 Del Method O2 Flow Rate 01/24/24 11:15 01/24/24 11:00 01/24/24 10:30 01/24/24 10:26 01/24/24 10:20 01/24/24 08:06 Oxymask 4 01/24/24 08:00 01/24/24 08:00 Oxymask 4 01/24/24 03:49 Oxymask 2 01/24/24 03:20 Oxymask 2 01/24/24 03:04 Oxymask 2 Resident Activity Tracking Resident Involvement: Resident Care Provided Care Provided: Adult Hospital Medicine and Pediatric Care (4) Atrial fibrillation Atrial fibrillation type: permanent Qualified Code(s): I48.21 - Permanent atrial fibrillation
--- NOTE | 2024-01-24 13:23 | Electrocardiogram Report ---
Test Reason : Blood Pressure : */* mmHG Vent. Rate : 85 BPM Atrial Rate : 357 BPM P-R Int : * ms QRS Dur : 92 ms QT Int : 388 ms P-R-T Axes : * 7 -31 degrees QTcB Int : 461 ms Poor data quality, interpretation may be adversely affected Ventricular-paced rhythm with premature ventricular or aberrantly conducted complexes Underlying rhythm is Atrial fibrillation Abnormal ECG When compared with ECG of 23-Jan-2024 05:38, No significant change Confirmed by Terry Olson ([id number]) on 01/24/2024 1:23:01 PM Referred By: REFERRED SELF Confirmed By: Terry Olson
[2024-01-24] MEDS: TAZOBACTAM IV SCH (14:30)
[2024-01-24] MEDS: PIPERACILLIN IV SCH (14:30)
[2024-01-24] MEDS: DEXTROSE 50% 50 ML SYRINGE IV ONE (14:50)
[2024-01-24] MEDS: PIPERACILLIN/TAZOBACTAM 4.5 GM/100 ML BAG IV SCH (21:07)
[2024-01-25 01:59] LABS: ANTI-Xa, UFH(UnfractionatedHep > 1.50 IU/ml (0.3-0.7)
[2024-01-25 04:40] LABS: Albumin Globulin Ratio 0.8 (0.9-2); Albumin Level 2.3 gm/dl (3.4-5.0); BUN Creatinine Ratio 15.9 (10-20); Bilirubin,Total 1.9 mg/dl (0.2-1.0); Calcium 7.5 mg/dl (8.6-10.3); Creatinine Clr Calc Pharmacy 17.1 ml/min; Est GFR (African American) 17.7 ml/min; Est GFR (Non-African American) 15.3 ml/min; Globulin 2.9 gm/dl (2.5-4.0); Magnesium 2.1 mg/dl (1.7-2.4); Total Protein 5.2 gm/dl (6.0-8.3)
[2024-01-25 04:46] LABS: Basophilic Stippling 1+; Basophils # (auto) 0.05 K/uL (0.00-0.20); Basophils % (auto) 0.5 %; Dohle Bodies 1+; Echinocytes 1+; Eosinophils # (auto) 0.02 K/uL (0.00-0.50); Eosinophils % (auto) 0.2 %; Hematocrit (blood only) 31.4 % (42.0-52.0); Hemoglobin 10.4 g/dl (14.0-18.0); Immature Granulocytes # (auto) 0.16 K/uL (0.01-0.20); Immature Granulocytes % (auto) 1.7 %; Lymphocytes # (auto) 1.02 K/uL (1.20-3.40); Lymphocytes % (auto) 10.9 %; Mean Corpuscular Hemoglobin 29.4 pg (25.0-34.0); Mean Corpuscular Hgb Conc 33.1 g/dL (32.0-36.0); Mean Corpuscular Volume 88.7 fL (80.0-100.0); Mean Platelet Volume 13.4 fL (9.4-12.4); Monocytes # (auto) 0.22 K/uL (0.11-0.59); Monocytes % (auto) 2.3 %; Neutrophils # (auto) 7.92 K/uL (1.40-6.50); Neutrophils % (auto) 84.4 %; Ovalocytes 1+; Platelet Count 58 K/uL (130-400); RDW Coefficient of Variation 15.6 % (11.5-14.5); RDW Standard Deviation 51.2 fL (36.4-46.3); Red Blood Count 3.54 M/uL (4.70-6.10); White Blood Count 9.39 K/ul (4.8-10.8)
[2024-01-25 04:51] LABS: ANTI-Xa, UFH(UnfractionatedHep > 1.50 IU/ml (0.3-0.7)
[2024-01-25 07:18] LABS: ANTI-Xa, UFH(UnfractionatedHep > 1.50 IU/ml (0.3-0.7)
--- NOTE | 2024-01-25 07:48 | Hospitalist Progress Note ---
Date of Service January 25, 2024 Assessment & Plan (1) HENNA (acute kidney injury): (2) Presence of bare metal stent in right coronary artery: (3) Mitral and aortic regurgitation: (4) Atrial fibrillation: (5) Hypertension: (6) Pacemaker: (7) Dyslipidemia: (8) Coronary artery disease: (9) Acid reflux disease: (10) History of prostate cancer: (11) Urinary tract infection: Plan 88 y/o with PMH of CAD, s/p stent placement,, HTN, afib, OA admitted due to worsening HENNA and acute mental status change Acute kidney injury/ATN Metabolic acidosis - Oliguric, ATN - Secondary to NSAIDs, poor po - Creatinine 4.77 on admission, baseline 1.11. UA significant for granular casts - likely ATN Hyperkalemia - s/p Insulin, Dextrose, Calcium gluconate Corner Cutter consulted, aprec recommendations: HD again today to correct electrolytes and attempt 1 L UF Hold nephrotoxic Continue trending labs Acute respiratory failure Tachypnea - Secondary to hypercapnia - CXR: Cardiomegaly and pulmonary - Echo : moderate pulmonary HTN - Second HD today Possible UTI: UA culture sent, negative for 24 - Zosyn IV CAD/hypertension/history of RCA bare-metal stent/mitral and aortic regurgitat ion/atrial fibrillation- Continue apixaban held, on heparin drip Hold aspirin and lisinopril Right shoulder and knee osteoarthritis pain- Acetaminophen 650 mg by mouth every 6 hours as needed for mild pain or fever Hydrocodone/acetaminophen 5/325, 1 tablet every 6 hours as needed for moderate pain Diet:NPO VTE ppx: Heparin restarted Code Status: DNR/ DNI Admission and Anticipated Discharge Date Admission Date: January 22, 2024 Physical Exam Constitutional: + ill appearing and + altered mental sta tus ENMT: external ear and nose normal, oropharynx normal Respiratory: + labored breathing Auscultation: + r honchi Cardiovascular: RRR, no murmur, no edema Rate/Rhythm: + irregularly irregular Heart Sounds: normal S1 and normal S2 Extremities: + edema Gastrointestinal (Abdomen): normal bowel sounds, soft, nontender, no hepatosplenomegaly Results & Data Results & Data Vital Signs (Past 12 Hours) Vital Signs Temp Pulse Pulse Resp BP Pulse Ox O2 Del Method 01/25/24 02:01 36.6 C 60 32 H 106/49 L 98 Oxymask 01/25/24 00:51 Oxymask 01/25/24 00:51 62 01/24/24 22:47 36.7 C 60 30 H 88/49 L 97 Oxymask O2 Flow Rate 01/25/24 02:01 01/25/24 00:51 4 01/25/24 00:51 01/24/24 22:47 5 (4) Atrial fibrillation Atrial fibrillation type: permanent Qualified Code(s): I48.21 - Permanent atrial fibrillation
[2024-01-25 07:57] LABS: ANTI-Xa, UFH(UnfractionatedHep > 1.50 IU/ml (0.3-0.7)
[2024-01-25 07:59] LABS: ANTI-Xa, UFH(UnfractionatedHep > 1.50 IU/ml (0.3-0.7)
[2024-01-25] MEDS ORDERED: ACETAMINOPHEN 1,000 MG/100 ML VIAL IV PRN ×2 (08:15→08:22)
--- NOTE | 2024-01-25 08:45 | Nephrology Progress Note ---
Date of Service January 25, 2024 Assessment & Plan (1) HENNA (acute kidney injury): Plan: * Oliguric HENNA. Patient has ATN. Urine microscopy shows granular casts. Renal US is negative for obstruction. ROBERT and NSAID use are likely contributing factors * Patient dialyzed 01/25/24 for 3.5 hrs. He could only tolerate 330 cc UF due to intradialytic hypotension * K 5.0, BUN 54 this morning * Will provide HD today for continued urea clearance and attempt UF as guided by Crit-line monitor * Orders for HD have been entered into EMR and leguillon debeader HD RN notified * Hold lisinopril, NSAIDS. * CPK mildly elevated at 601 on admission. 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 Baseline Cr 1.0 w/ EGFR 63 cc/min due to microvascular disease (3) Confusion: Plan: * Urinalysis suggestive of UTI * Urine culture was negative * Now on IV Zosyn therapy * No improvement despite antibiotic therapy, dialysis. Prognosis is guarded. Consider palliative care consultation to outline goals of care Admission and Anticipated Discharge Date Admission Date: January 22, 2024 Subjective Mr. Ramirez was evaluated in his hospital room this morning. He remains confused, agitated. Does not follow commands. Requires oxymask at 2 L/min. Review of Systems Review of Systems: Unobtainable due to cognitive status Physical Exam Constitutional: + ill appearing and + altered mental sta tus Eyes: PERRL, conjunctivae normal, anicteric sclerae ENMT: external ear and nose normal, oropharynx normal Neck: trachea midline, no thyromegaly Respiratory: + tachypneic Cardiovascular: Rate/Rhythm: regular rate and regular rhythm Gastrointestinal (Abdomen): normal bowel sounds, soft, nontender, no hepatosplenomegaly Skin: no rashes, warm and dry Neurologic: awake (agitated) Results & Data Vital Signs (Past 12 Hours) Vital Signs Temp Pulse Pulse Resp BP Pulse Ox O2 Del Method 01/25/24 07:56 36.4 C L 61 20 106/49 L 98 Oxymask 01/25/24 02:01 36.6 C 60 32 H 106/49 L 98 Oxymask 01/25/24 00:51 Oxymask 01/25/24 00:51 62 01/24/24 22:47 36.7 C 60 30 H 88/49 L 97 Oxymask O2 Flow Rate 01/25/24 07:56 4 01/25/24 02:01 01/25/24 00:51 4 01/25/24 00:51 01/24/24 22:47 5 Laboratory Results Laboratory Results WBC 9.39 K/ul (4.8-10.8) 01/25/24 04:00 RBC 3.54 M/uL (4.70-6.10) L 01/25/24 04:00 Hgb 10.4 g/dl (14.0-18.0) L 01/25/24 04:00 Hct 31.4 % (42.0-52.0) L 01/25/24 04:00 MCV 88.7 fL (80.0-100.0) 01/25/24 04:00 MCH 29.4 pg (25.0-34.0) 01/25/24 04:00 MCHC 33.1 g/dL (32.0-36.0) 01/25/24 04:00 RDW Std Deviation 51.2 fL (36.4-46.3) H 01/25/24 04:00 RDW Coeff of Jeannie 15.6 % (11.5-14.5) H 01/25/24 04:00 Plt Count 58 K/uL (130-400) L 01/25/24 04:00 MPV 13.4 fL (9.4-12.4) H 01/25/24 04:00 Immature Gran % (Auto) 1.7 % 01/25/24 04:00 Neut % (Auto) 84.4 % 01/25/24 04:00 Lymph % (Auto) 10.9 % 01/25/24 04:00 [place] % (Auto) 2.3 % 01/25/24 04:00 Eos % (Auto) 0.2 % 01/25/24 04:00 Baso % (Auto) 0.5 % 01/25/24 04:00 Neut # (Auto) 7.92 K/uL (1.40-6.50) H 01/25/24 04:00 Lymph # (Auto) 1.02 K/uL (1.20-3.40) L 01/25/24 04:00 [place] # (Auto) 0.22 K/uL (0.11-0.59) 01/25/24 04:00 Eos # (Auto) 0.02 K/uL (0.00-0.50) 01/25/24 04:00 Baso # (Auto) 0.05 K/uL (0.00-0.20) 01/25/24 04:00 Immature Gran # (Auto) 0.16 K/uL (0.01-0.20) 01/25/24 04:00 Absolute Nucleated RBC 0.02 K/uL (0.00-0.12) 01/22/24 01:54 Nucleated RBC % (auto) 0.2 % 01/22/24 01:54 Hypogranular Neuts 1+ 01/23/24 04:26 Toxic Granulation 1+ 01/24/24 01:17 Toxic Vacuolation 1+ 01/23/24 04:26 Dohle Bodies 1+ 01/25/24 04:00 Polychromasia 1+ 01/23/24 04:26 Basophilic Stippling 1+ 01/25/24 04:00 Ovalocytes 1+ 01/25/24 04:00 Echinocytes 1+ 01/25/24 04:00 PT 14.3 Seconds (9.0-12.0) H 01/24/24 01:16 INR 1.4 (0.9-1.1) H 01/24/24 01:16 APTT 41 Seconds (21-31) H 01/22/24 01:54 PTT Ratio 1.5 01/22/24 01:54 Fibrinogen > 860 mg/dl (184-400) H 01/24/24 01:16 Heparin Anti-Xa, Unfract > 1.50 IU/ml (0.3-0.7) H* 01/25/24 07:14 VBG pH 7.36 (7.36-7.41) 01/24/24 01:17 VBG pCO2 32 mmHg (38-50) L 01/24/24 01:17 VBG pO2 42 mmHg 01/24/24 01:17 VBG HCO3 18 mmol/L 01/24/24 01:17 VBG O2 Saturation 65.7 % 01/24/24 01:17 VBG Base Excess -6.3 mEq/L 01/24/24 01:17 Sodium 139 mmol/L (136-145) 01/25/24 04:00 Potassium 5.0 mmol/L (3.5-5.1) 01/25/24 04:00 Chloride 103 mmol/L (98-107) 01/25/24 04:00 Carbon Dioxide 23 mmol/L (21-32) 01/25/24 04:00 Anion Gap 13 (3-11) H 01/25/24 04:00 BUN 54 mg/dl (6-23) H D 01/25/24 04:00 Creatinine 3.39 mg/dl (0.6-1.4) H D 01/25/24 04:00 Est Cr Clr Drug Dosing 17.1 ml/min 01/25/24 04:00 Est GFR ( Amer) 17.7 ml/min 01/25/24 04:00 Est GFR (Non-Af Amer) 15.3 ml/min 01/25/24 04:00 BUN/Creatinine Ratio 15.9 (10-20) 01/25/24 04:00 Glucose 97 mg/dl (70-99(Fasting)) 01/25/24 04:00 POC Glucose 103 mg/dl (70-99) H 01/25/24 08:00 Lactate 3.5 mmol/L (0.4-2.0) H* 01/24/24 06:05 Calcium 7.5 mg/dl (8.6-10.3) L 01/25/24 04:00 Magnesium 2.1 mg/dl (1.7-2.4) 01/25/24 04:00 Total Bilirubin 1.9 mg/dl (0.2-1.0) H 01/25/24 04:00 AST 137 U/L (13-39) H 01/25/24 04:00 ALT 46 U/L (7-52) 01/25/24 04:00 Alkaline Phosphatase 301 U/L (34-104) H 01/25/24 04:00 Total Creatine Kinase 601 U/L (30-223) H 01/23/24 11:14 Troponin I High Sens 182.1 pg/ml (0-20) H* D 01/24/24 01:17 B-Natriuretic Peptide 760 pg/ml (0-100) H 01/23/24 11:14 Total Protein 5.2 gm/dl (6.0-8.3) L 01/25/24 04:00 Albumin 2.3 gm/dl (3.4-5.0) L 01/25/24 04:00 Globulin 2.9 gm/dl (2.5-4.0) 01/25/24 04:00 Albumin/Globulin Ratio 0.8 (0.9-2) L 01/25/24 04:00 Lipase 27 U/L (11-82) 01/22/24 01:54 Random Cortisol 28.23 mcg/dl 01/24/24 01:17 Urine Color Dark Yellow 01/22/24 03:20 Urine Appearance Turbid (Clear) A 01/22/24 03:20 Urine pH 5.0 (4.5-7.5) 01/22/24 03:20 Ur Specific [place] 1.024 (1.000-1.030) 01/22/24 03:20 Urine Protein 3+ (Negative) H 01/22/24 03:20 Urine Glucose (UA) Trace (Negative) H 01/22/24 03:20 Urine Ketones Trace (Negative) H 01/22/24 03:20 Urine Blood Trace (Negative) H 01/22/24 03:20 Urine Nitrite Positive (Negative) A 01/22/24 03:20 Urine Bilirubin 1+ (Negative) H 01/22/24 03:20 Urine Urobilinogen Negative (Negative) 01/22/24 03:20 Ur Leukocyte Esterase 1+ (Negative) H 01/22/24 03:20 Urine WBC (Auto) 6-10 /hpf (0-5) H 01/22/24 03:20 Urine RBC (Auto) 6-10 /hpf (0-2) H 01/22/24 03:20 U Hyaline Cast (Auto) >20 /lpf (0-2) H 01/22/24 03:20 U Epithel Cells (Auto) >20 /hpf (0-2) H 01/22/24 03:20 Urine Bacteria (Auto) None Seen (None Seen) 01/22/24 03:20 Amorphous Sediment Present (None Prsent) A 01/22/24 03:20 Granular Casts Present /lpf (None Prsent) A 01/22/24 03:20 SARS-CoV-2 (PCR) NEGATIVE (Negative) 01/22/24 02:42 Hep Bs Antigen Negative (Negative) 01/23/24 08:02 Influenza Type A (PCR) Negative (Neg) 01/22/24 02:42 Influenza Type B (PCR) Negative (Neg) 01/22/24 02:42 RSV (RT-PCR) Negative (Neg) 01/22/24 02:42 Impressions Knee X-Ray 01/22/24 02:32 XR knee RT 1 or 2V routine CLINICAL HISTORY: R shoulder pain TECHNIQUE: 2 views of the right knee were obtained. Comparison: Comparison is made to tibia and fibula radiographs 04/02/2021 FINDINGS: There is no evidence of an acute fracture. Degenerative changes are seen most prominent in the medial and patellofemoral compartment. A small suprapatellar effusion is seen. Vascular calcifications are noted. IMPRESSION: Suprapatellar effusion without evidence of underlying bony injury. Severe osteoarthritic changes are seen. ACT 112: Negative or not required by law. Electronically signed by: Antione Wong M.D. 01/22/2024 8:00 AM Shoulder X-Ray 01/22/24 02:32 XR shoulder RT min 2V routine CLINICAL HISTORY: R shoulder pain TECHNIQUE: 3 views of the right shoulder were obtained. Comparison: Comparison is made to shoulder radiograph 06/23/2022 FINDINGS: There is no evidence of an acute fracture. Interval healing changes of previously noted greater tuberosity fracture. Degenerative changes are seen in the glenohumeral joint. The overlying soft tissues are unremarkable. The vi sualized portions of the lungs are clear. IMPRESSION: Degenerative changes without evidence of acute abnormality. ACT 112: Negative or not required by law. Electronically signed by: Antione Wong M.D. 01/22/2024 7:54 AM Abdomen/Pelvis CT 01/22/24 03:09 Exam(s): CT ABDOMEN + PELVIS Without Contrast EXAM: CT Abdomen and Pelvis Without Intravenous Contrast CLINICAL HISTORY: Reason for exam: henna. TECHNIQUE: Axial computed tomography images of the abdomen and pelvis without intravenous contrast. Automated exposure control was utilized for the study. A dose lowering technique was utilized adhering to the principles of ALARA. COMPARISON: CT abdomen and pelvis: 11/29/2020 FINDINGS: Lung bases: Unremarkable. No mass. No consolidation. Pleural space: There are small dependent bilateral pleural effusions. Heart: There is moderate to severe cardiomegaly. Median sternotomy wires and vascular calcifications are noted. Pacing leads are partially visualized. ABDOMEN: Liver: Unremarkable. Gallbladder and bile ducts: There are few intraluminal gallstones. No pericholecystic inflammatory changes are noted. No ductal dilation. Pancreas: Unremarkable. No ductal dilation. Spleen: Unremarkable. No splenomegaly. Adrenals: Unremarkable. No mass. Kidneys and ureters: Unremarkable. No obstructing stones. No hydronephrosis. Stomach and bowel: There is a moderate volume of stool suggestive of constipation. There are scattered colonic diverticula. No free air or abscess identified. No obstruction. No mucosal thickening. PELVIS: Appendix: No findings to suggest acute appendicitis. Bladder: Unremarkable. No stones. Reproductive: Unremarkable as visualized. ABDOMEN and PELVIS: Intraperitoneal space: See above. Bones/joints: No acute fracture. No dislocation. Soft tissues: Unremarkable. Vasculature: There are scattered aortic atherosclerotic calcifications. There is an infrarenal abdominal aortic aneurysm measuring 3.8 x 3.8 cm. Previous measurements: 3.5 x 3.5 cm. There are scattered aortic and coronary artery calcifications. Lymph nodes: Unremarkable. No enlarged lymph nodes. IMPRESSION: 1. Moderate distal stool burden suggestive of constipation. 2. Cholelithiasis. 3. Colonic diverticulosis. 4. 3.8 x 3.8 cm infrarenal abdominal aortic aneurysm. Previous 2020 measurements: 3.5 x 3.5 cm. 5. No acute intra-abdominal or pelvic inflammatory process identified. No free air abscess identified. 6. Moderate to severe cardiomegaly and small dependent pleural effusions. Electronically signed by: Timo Marin MD 01/22/24 04:47 AM Venous Doppler Study 01/23/24 07:48 US venous doppler LE RT HISTORY: 88 years-old Male r/o DVT acute pain and swelling of the right lower leg COMPARISON: 11/30/2020 TECHNIQUE: Multiple real-time sonographic images of the right lower extremity deep venous structures were obtained assessing grayscale appearance, color and spectral flow. FINDINGS: Normal flow, compressibility, phasicity and augmentation. IMPRESSION: No sonographic evidence of deep venous thrombosis. ACT 112: Negative or not required by law. The above report was generated using voice recognition software. It may contain grammatical, syntax or spelling errors. Electronically signed by: Timothy Loredo M.D. 01/23/2024 9:53 AM Renal Ultrasound 01/23/24 08:09 RENAL ULTRASOUND CLINICAL HISTORY: Acute kidney injury. COMPARISON STUDY: CT of the abdomen and pelvis January 22, 2024. TECHNIQUE: Sonography of the kidneys and the urinary bladder was performed. FINDINGS: The right kidney measures 11 cm in maximal dimension and the left measures 10.3 cm. There is no hydronephrosis. A 1.7 cm anechoic right upper pole renal lesion represents a cyst. Left kidney is partially obscured. There is mild bilateral renal cortical thinning. A Harrison balloon within the bladder is noted. IMPRESSION: No hydronephrosis. ACT 112: Negative or not required by law. Electronically signed by: Luis Ibarra M.D. 01/23/2024 9:49 AM Chest X-Ray 01/23/24 11:59 XR chest 1V portable CLINICAL HISTORY: Status post line placement. COMPARISON STUDY: Chest CT November 29, 2020. Chest radiograph January 23, 2024 at 8:00 AM. FINDINGS: There is no pneumothorax placement of a right internal jugular central venous catheter. Tip projects over the cavoatrial junction. Left subclavian pacer and median sternotomy wires are noted. Moderate cardiomegaly. Mild pulmonary edema persists. Small left pleural effusion with left basilar opacity is similar to prior exam. IMPRESSION: 1. No pneumothorax following placement of a right internal jugular central venous catheter. 2. Cardiomegaly with interstitial pulmonary edema, similar to prior exam. 3. No change in a small left pleural effusion with left basilar opacity. ACT 112: Negative or not required by law. Electronically signed by: Luis Ibarra M.D. 01/23/2024 12:46 PM Microbiology 01/23/24 08:28 Urine,Clean Catch Urine Culture - Preliminary No growth - Less than 1,000 colonies/mL, Final report to follow. PG Care Time/CCT Total # of Minutes Spent Total Time Spent with Patient: Total time spent is greater than 50% in coordination of care (as documented) at patient's floor/unit and/or counseling patient: Coding Level of Care Code 03038 SUB INP/OBS CARE 3/50MIN Diagnoses HENNA (acute kidney injury) N17.9 Chronic kidney disease with active medical management without dialysis, stage 2 (mild) N18.2 Confusion R41.0
[2024-01-25] MEDS ORDERED: SODIUM CHLORIDE 0.9% 1,000 ML IV PRN (09:46)
[2024-01-25 09:51] LABS: Hepatitis B Surface Ab Quant < 3.00 mIU/mL (>or=10mIU/mL Immune); Hepatitis B Surface Antibody Non-Immune
[2024-01-25 11:37] VITALS: RESP 32; O2SAT 93
[2024-01-25 13:18] VITALS: TEMP 97.5
[2024-01-25] MEDS: EPOETIN ALFA 4,000 UNIT/ML VIAL IV ONE (14:24)
--- NOTE | 2024-01-25 14:59 | Discharge Summary ---
Date of Service January 25, 2024 Admission HPI Per Admitting Provider The patient is a 88-year-old male with a past medical history including right shoulder and knee pain, aortic root dilatation, distal RCA bare-metal stent, bradycardia, peripheral edema, tricuspid retention, mitral and aortic regurgitation, GERD, history of emesis fugax, atrial fibrillation, presence of pacemaker, long-term use of anticoagulant, hypothyroidism, hypertension, dyslipidemia, CAD, and thoracic aortic dissection. The patient presents to the emergency department with persistence of right shoulder and knee pain spite of recent injection Routine laboratory performed in the ED showed acute kidney injury with creatinine 3.61, urinalysis suggestive of urinary tract infection, and patient was referred for evaluation for admission. Principal Diagnosis Acute renal failure Discharge Exam Constitutional Patient was unresponsive to verbal and tactile stimuli. Patient unresponsive to corneal and pupillary reflexes. On cardiopulmonary exam, no carotid or radial pulses found and pt without spontaneous heart tones or respirations. Discharge Data Allergies Allergy/AdvReac Type Severity Reaction Status Date / Time No Known Allergies Allergy Mild NONE Verified 08/11/23 11:34 Consultations 01/22/24 04:56 ED Decision to Admit Stat 01/22/24 19:15 Consult Nephrology Routine 01/23/24 09:59 Consult [facility] [place] Pulp Routine Ordered Studies 01/22/24 03:09 CT abd pelvis wo con Stat 01/23/24 07:48 US venous doppler LE RT Stat 01/23/24 08:09 US Renal Bladder [US renal/blad retro comp] Urgent 01/25/24 12:16 CT head/brain wo con Routine Hospital Course (1) HENNA (acute kidney injury): (2) Presence of bare metal stent in right coronary artery: (3) Mitral and aortic regurgitation: (4) Atrial fibrillation: (5) Hypertension: (6) Pacemaker: (7) Dyslipidemia: (8) Coronary artery disease: (9) Acid reflux disease: (10) History of prostate cancer: (11) Urinary tract infection: (12) Chronic kidney disease with active medical management without dialysis, stage 2 (mild): (13) Confusion: Plan 88 y/o with PMH of CAD, s/p stent placement,, HTN, afib, OA admitted due to acute kidney failure and acute mental status change Time of was pronounced by me on 01/25/2024 at 1452 Cause of : Acute respiratory failure due to acute kidney failure/ ATN Acute kidney injury/ATN Metabolic acidosis - Oliguric, ATN - Secondary to NSAIDs, poor po - Creatinine 4.77 on admission, baseline 1.11. UA significant for granular casts - likely ATN Hyperkalemia Starchmaker consulted, aprec recommendations: HD x3 Poor prognosis Acute respiratory failure Tachypnea - Secondary to acute kidney failure - CXR: Cardiomegaly and pulmonary edema - Echo : moderate pulmonary HTN - Second HD today CAD/hypertension/history of RCA bare-metal stent/mitral and aortic regurgitation/atrial fibrillation- Apixaban held, on heparin drip Hold aspirin and lisinopril Right shoulder and knee osteoarthritis pain- Acetaminophen 650 mg IV Hydrocodone/acetaminophen 5/325, 1 tablet every 6 hours as needed for moderate pain Diet:NPO VTE ppx: Heparin restarted Code Status: DNR/ DNI Total Time Total Time Spent Total Time Spent (In Minutes): see attending attestation Discharge Plan Discharge Items Patient Disposition: Other Date/Time: 01/25/24 02:52 Supervising Physician Co-Signing Physician Notes Attending Physician Supervision Note: I independently interviewed and examined the patient and verified the stauffer history and physical, reviewed labs and image studies and agree with findings and care plan noted above. Seen this morning. continued to be not responsive. Coughing to expectorate secre tion but unable to. Moving all extremities. Mouth breathing. Tachypnea. Lungs clear anteriorly. Edema all extremities. ARF/ATN - New onset. Due to poor p.o. intake, NSAIDs, lisinopril. Started on HD 01/22 due to Hyperkalemia not responsive to medications. Planed for HD again today since unable to tolerate UF after 230 cc yesterday 01/23. Nephrology recommended palliative care discussion regarding goals of care. For concern of UTI on admission as per UA - Kept on antibiotics. culture sent after starting abx. Fluid overload - CXR with pulmonary congestion. Likely from acute renal failure and underlying severe LVH. BNP 700s. Severe LVH, moderate Pul HTN - IVC not collapsing with respiration. -Not able to tolerate UF. Delirium - likely due to acute illness. Thrombocytopenia - No concern of DIC during hospital stay - fibrinogen level >800. While in Dialysis - his BP lowered again and on recheck by nursing he .
--- NOTE | 2024-01-25 15:04 | Death Pronouncement Note ---
Date of Service January 25, 2024 Pronouncement Note Admission Date Admission Date: January 22, 2024 Contributing Factors (1) HENNA (acute kidney injury): (2) Chronic kidney disease with active medical management without dialysis, stage 2 (mild): (3) Confusion: Summary Additional details: I was called to pronounce the of Erik Ramirez :1935 by nursing on 01/25/2024 Upon entering the room, the patient was found to be in a terminal state. Patient was unresponsive to verbal and tactile stimuli. Patient unresponsive to corneal and pupillary reflexes. On cardiopulmonary exam, no carotid or radial pulses found and pt without spontaneous heart tones or respirations. Time of was pronounced by me on 01/25/2024 at 1452 Attending physician was notified. Next of kin was notified by Dr. Sorensen Additional Data Attending physician: Luanne Sorensen MD Resident Activity Tracking Resident Involvement: Resident Care Provided Care Provided: Adult Hospital Medicine
[2024-01-25 15:30] VITALS: BP 96/53; PULSE 61
== END 2024-01-25 18:31 | disposition expired | DRG 682 ==
LOC: SUATTDRO → ED 01:16 → EDINP 05:44 → SUATTDRO 05:44 → 2E 09:20
DX: D69.6 Thrombocytopenia, unspecified; I25.10 Atherosclerotic heart disease of native coronary artery without angina pectoris; Z95.0 Presence of cardiac pacemaker; E78.5 Hyperlipidemia, unspecified; I08.0 Rheumatic disorders of both mitral and aortic valves; J96.01 Acute respiratory failure with hypoxia; E03.9 Hypothyroidism, unspecified; N17.0 Acute kidney failure with tubular necrosis; N18.2 Chronic kidney disease, stage 2 (mild); N39.0 Urinary tract infection, site not specified; Z79.899 Other long term (current) drug therapy; Z68.22 Body mass index [BMI] 22.0-22.9, adult; Z95.5 Presence of coronary angioplasty implant and graft; K59.00 Constipation, unspecified; E46 Unspecified protein-calorie malnutrition; E87.20 Acidosis, unspecified; M17.11 Unilateral primary osteoarthritis, right knee; Z79.01 Long term (current) use of anticoagulants; K21.9 Gastro-esophageal reflux disease without esophagitis; Z79.82 Long term (current) use of aspirin; I48.91 Unspecified atrial fibrillation; F05 Delirium due to known physiological condition; I12.9 Hypertensive chronic kidney disease with stage 1 through stage 4 chronic kidney disease, or unspecified chronic kidney disease; E87.5 Hyperkalemia; M19.011 Primary osteoarthritis, right shoulder; Z87.891 Personal history of nicotine dependence